=== PATIENT | female | born 1945 | race Two or more races ===

== ENCOUNTER → 2024-04-26 | Outpatient (CLI) | payer MEDICARE, OTHER, SELFPAY ==
[2024-04-26 11:26] LABS: Glucose Estimated Average 146 mg/dL (80-131); Hemoglobin A1C 6.7 % Hgb (4.8-6.0)
[2024-04-26 11:36] LABS: Cardiac Risk Estimate 5.2 RATIO (3.7-5.6); Cholesterol 161 mg/dL (132-200); Free T4 (Free Thyroxine) 1.28 ng/dL (0.89-1.76); HDL Cholesterol 31 mg/dL (40-60); LDL Cholesterol,Calculated 96 mg/dL (0-130); Triglycerides 169 mg/dL (30-150)
== END | disposition home or self-care (01) ==
LOC: COPL 10:16
PROVIDERS: PCP Family Medicine; Referring Provider Family Medicine; Visit Provider Family Medicine
DX: E05.90 Thyrotoxicosis, unspecified without thyrotoxic crisis or storm (principal); E11.69 Type 2 diabetes mellitus with other specified complication
CPT/HCPCS: 36415; 80061; 83036; 84439; 84443

== ENCOUNTER 2024-08-02 13:53 | Inpatient (IN) | payer MEDICARE, OTHER, SELFPAY ==
[2024-08-02] VITALS (38 sets, daily range): BP systolic 81–126; BP diastolic 41–75; PULSE 67–95; RESP 16–89; TEMP 36.6–37; O2SAT 81–100; BMI 20.6
--- NOTE | 2024-08-02 14:16 | EKG_ITS ---
[facility] Test Date: 2024-08-02 Pat Name: DIANNE HOU Department: Room: - Gender: Female Qm Nurse: : 1945 Requested By: Giovani Smith Order Number: [id number] Reading MD: Giovani Smith Measurements Intervals [place] Rate: 78 P: 50 ID: [id number] QRS: -26 QRSD: 105 T: 201 QT: 418 QTc: 479 Interpretive Statements SINUS RHYTHM WITH FIRST DEGREE AV BLOCK POSSIBLE ANTERIOR MYOCARDIAL INFARCTION , PROBABLY OLD [30 ms Q WAVE IN V3/V4, OR R < 0.2 mV IN V4] INFERIOR MYOCARDIAL INFARCTION , PROBABLY OLD [40+ ms Q WAVE AND/OR ST/T ABNORMALITY IN II/aVF] Compared to ECG 04/25/2022 16:15:28 First degree AV block now present Myocardial infarct finding still present /store/S0/[id number]
--- NOTE | 2024-08-02 14:17 | XR_ITS ---
Examination: AP lateral chest 2 views TECHNIQUE: Upright AP lateral chest 2 views INDICATIONS: Coughing fever beginning 3 days ago. FINDINGS: Extensive bilateral pneumonia Prominent hilar regions Normal heart size The osseous structures are intact and significantly demineralized IMPRESSION: Significant bilateral pneumonia
[2024-08-02 14:46] LABS: Basophils % (Auto) 0 % (0-2.5); Eosinophils % (Auto) 0 % (0-10); Hematocrit 31.2 % (36.0-46.0); Hemoglobin 10.6 g/dL (12.0-16.0); Immature Granulocytes % (Auto) 1 % (0-0); Immature Granulocytes Auto 0.07 Thou/mm3 (0.00-0.00); Lymphocytes # (Auto) 0.2 Thou/mm3 (1.0-4.8); Lymphocytes % (Auto) 3 % (10-50); Mean Corpuscular Hemoglobin 31.6 pg (25.0-35.0); Mean Corpuscular Volume 93 fL (80-100); Monocytes # (Auto) 0.8 Thou/mm3 (0.0-0.8); Monocytes % (Auto) 9 % (0-12); Neutrophils # (Auto) 7.9 Thou/mm3 (1.8-7.7); Neutrophils % (Auto) 88 % (37-80); Nucleated Red Blood Cell % 0 /100 WBC (0); Platelet Count 210 Thou/mm3 (140-440); RDW Standard Deviation 50.6 fL (36.4-46.3); Red Blood Count 3.35 Miln/mm3 (4.00-5.20)
[2024-08-02 15:06] LABS: Alanine Aminotransferase 16 U/L (10-49); Albumin, Serum 4.2 gm/dL (3.4-4.8); Albumin/Globulin Ratio 1.3 (1.2-2.2); Alkaline Phosphatase 96 U/L (46-116); Anion Gap 13 (7-16); Aspartate Amino Transferase 26 U/L (0-34); B-Type Natriuretic Peptide > 3280 pg/mL (0-100); BUN/Creatinine Ratio 23 Ratio (12-20); Bilirubin,Total 0.4 mg/dL (0.3-1.2); Blood Urea Nitrogen 49 mg/dL (9-23); Calcium 9.2 mg/dL (8.3-10.6); Calcium (Corrected) 9.2 mg/dL (8.5-10.1); Carbon Dioxide 18.1 mMol/L (20.0-31.0); Chloride 106 mMol/L (98-107); Creatinine (Component) 2.1 mg/dL (0.6-1.3); Globulin 3.2 gm/dL (2.3-3.5); Glucose 254 mg/dL (74-106); Osmolality,Calculated 295 (275-295); Potassium 3.8 mMol/L (3.4-5.1); Sodium 137 mMol/L (136-145); Total Protein 7.4 gm/dL (5.7-8.2); eGFR 23 See Note
--- NOTE | 2024-08-02 15:16 | PD.EDWEAK ---
ED Weakness RME/HPI General Chief complaint: Recheck/Abnormal Lab/Rx Stated complaint: NOT ACTING RIGHT , LETHARGIC W/HIGH GLUCOSE Time Seen by Provider: 08/02/24 13:59 Source: patient Arrival date/time: 08/02/24 13:53 79-year-old female with a history of type 2 diabetes presents to the emergency room with daughter who brought her in and states that her mother has been weak and Mode of arrival: ambulatory Limitations: no limitations Related Data Home Medications ?Medication ?Instructions ?Recorded ?Confirmed metoprolol tartrate 50 mg tablet 25 mg PO HS #0 tabs 11/09/15 04/27/22 aspirin 325 mg tablet 81 mg PO DAILY 04/02/20 04/27/22 sacubitril 24 mg-valsartan 26 mg 1 tab PO BID 04/02/20 04/27/22 tablet (Entresto) dapagliflozin propanediol 10 mg 10 mg PO QDAY 04/27/22 04/27/22 tablet (Farxiga) sertraline 50 mg tablet 50 mg PO QDAY 04/27/22 04/27/22 Allergies Allergy/AdvReac Type Severity Reaction Status Date / Time Penicillins Allergy Verified 04/02/20 00:14 ED Exam General Limitations: Present no limitations Course Orders Category Date Time Status Bedside COVID-19 Antigen Test NOW Care 08/02/24 14:17 Active Bedside Influenza A&B Antigen Test NOW Care 08/02/24 14:17 Completed EKG (ED ONLY) *Do not use* NOW Care 08/02/24 14:17 Completed EKG (ED Only) Stat Exams 08/02/24 14:16 Draft XR chest 2V Stat Exams 08/02/24 14:17 Taken BNP [B-Type Natriuretic Peptide] Stat Lab 08/02/24 14:34 Received CBC [CBC] Stat Lab 08/02/24 14:34 Completed CMP [Comprehensive Metabolic Panel] Stat Lab 08/02/24 14:34 Received Troponin I Stat Lab 08/02/24 14:34 Received UA, C/S IF [Urinalysis, C/S if Indicated] Stat Lab 08/02/24 14:17 Ordered Vital Signs Vital signs: Vital Signs Temperature 98.6 F 08/02/24 14:11 Pulse Rate 78 08/02/24 14:11 Respiratory Rate 16 08/02/24 14:11 Blood Pressure 93/58 L 03/05/25 14:11 Pulse Oximetry (%) 93 L 08/02/24 14:11 Oxygen Delivery Method Room Air 08/02/24 14:11 Discharge Plan Prescriptions/Referrals Prescriptions/Med Rec: No Action metoprolol tartrate 50 MG tablet 25 mg PO HS Qty: 0 Entresto 24-26 mg Tablet 1 tab PO BID aspirin 325 MG tablet 81 mg PO DAILY sertraline 50 mg tablet 50 mg PO QDAY Patient Comments: take 1 tablet by mouth once daily Farxiga 10 mg tablet 10 mg PO QDAY Patient Comments: take 1 tablet by mouth every morning Patient/Caregiver Discharge Instructions Print Language: Macedonian
[2024-08-02 15:34] LABS: Troponin I 0.165 ng/mL (0.0-0.045)
--- NOTE | 2024-08-02 15:41 | PD.EDRME ---
Rapid Medical Screening Exam RME Arrival date/time: 08/02/24 13:53 79-year-old female with a history of type 2 diabetes presents to the emergency room with daughter who brought her in and states that her mother has been weak and fatigued x 1 week. I have greeted and performed a focused initial assessment of this patient. A comprehensive ED assessment and evaluation of the patient, analysis of all test results, and completion of the medical decision making process will be conducted by additional ED providers. Chief Complaint: Recheck/Abnormal Lab/Rx Time Seen by Provider: 08/02/24 13:59 Vital signs: Vital Signs Temperature 98.6 F 08/02/24 14:11 Pulse Rate 78 08/02/24 14:11 Respiratory Rate 16 08/02/24 14:11 Blood Pressure 93/58 L 08/02/24 14:11 Pulse Oximetry (%) 93 L 08/02/24 14:11 Oxygen Delivery Method Room Air 08/02/24 14:11 Vital signs reviewed by provider: Yes
--- NOTE | 2024-08-02 16:30 | PD.EDWEAK ---
ED Weakness RME/HPI General Chief complaint: Recheck/Abnormal Lab/Rx Stated complaint: NOT ACTING RIGHT , LETHARGIC W/HIGH GLUCOSE Time Seen by Provider: 08/02/24 13:59 Source: patient and family Arrival date/time: 08/02/24 13:53 79-year-old female past medical history of CHF presents to the emergency department complaining of generalized weakness and difficulty breathing for 2 days. Patient's daughter also endorses blood sugars in the 200s. Patient's daughter reports mother is on diuretics for CHF and is managed by Dr. Mitchel Vasquez. Patient denies any fevers. Limitations: no limitations RME / HPI RME / HPI Narrative: 08/02/24 13:53 79-year-old female with a history of type 2 diabetes presents to the emergency room with daughter who brought her in and states that her mother has been weak and fatigued x 1 week. I have greeted and performed a focused initial assessment of this patient. A comprehensive ED assessment and evaluation of the patient, analysis of all test results, and completion of the medical decision making process will be conducted by additional ED providers. Related Data Home Medications ?Medication ?Instructions ?Recorded ?Confirmed metoprolol tartrate 50 mg tablet 25 mg PO HS #0 tabs 11/09/15 04/27/22 aspirin 325 mg tablet 81 mg PO DAILY 04/02/20 04/27/22 sacubitril 24 mg-valsartan 26 mg 1 tab PO BID 04/02/20 04/27/22 tablet (Entresto) dapagliflozin propanediol 10 mg 10 mg PO QDAY 04/27/22 04/27/22 tablet (Farxiga) sertraline 50 mg tablet 50 mg PO QDAY 04/27/22 04/27/22 Allergies Allergy/AdvReac Type Severity Reaction Status Date / Time Penicillins Allergy Verified 04/02/20 00:14 Review of Systems Review of Systems Systems Reviewed: All systems reviewed, normal except as documented Constitutional Constitutional: Reports system reviewed and no additional complaints, except as documented, Denies body ache(s), Denies chills and Denies fever(s) Eyes Eyes: Reports system reviewed and no additional complaints, except as documented and Denies change in vision ENT Ears, Nose, Mouth, and Throat: Reports system reviewed and no additional complaints, except as documented, Denies disequilibrium, Denies dizziness, Denies sore throat and Denies vertigo Cardiovascular Cardiovascular: Reports system reviewed and no additional complaints, except as documented, Denies chest pain and Reports dyspnea Respiratory Respiratory: Reports system reviewed and no additional complaints, except as documented, Denies chest congestion, Reports cough and Reports dyspnea Gastrointestinal Gastrointestinal: Reports system reviewed and no additional complaints, except as documented, Denies abdominal pain, Denies nausea and Denies vomiting Musculoskeletal Musculoskeletal: Reports system reviewed and no additional complaints, except as documented, Denies abnormal gait and Denies arthralgias Integumentary/Breasts Skin/Breast: Reports system reviewed and no additional complaints, except as documented, Denies erythema, Denies rash and Denies wounds Neurologic Neurologic: Reports system reviewed and no additional complaints, except as documented, Denies abnormal gait, Denies disequilibrium, Denies dizziness and Denies vertigo Past Medical History Past Medical History NEUROLOGIC: Positive Neurological Disorders (DAUGHTER UNABLE TO RECALL IF ALZHEMIERS OR DEMENTIA) CARDIAC: Positive Cardiac Disorders (LEAKY VALVE) and Congestive Heart Failure; Negative Hypertension RESPIRATORY: Positive Pneumonia; Negative Chronic Obstructive Pulmonary Disease (COPD) GENITOURINARY: Negative Renal Disease ENT: Positive Cataracts ENDOCRINE: Positive Diabetes Mellitus Type 2 and Hyperthyroidism; Negative Diabetes Mellitus Type 1 PSYCHO/SOCIAL: Positive Anxiety Social History SMOKING STATUS: Never smoker SUBSTANCE USE: does not use ED Exam General Limitations: Present no limitations General appearance: Present alert and in no apparent distress Head Head exam: Present atraumatic Eye Eye exam: Present normal appearance, PERRL and EOMI ENT ENT exam: Present normal exam, normal oropharynx and mucous membranes moist Neck Neck exam: Present normal inspection, full ROM and trachea midline Chest Chest inspection: Present normal inspection and symmetric chest wall rise Respiratory Respiratory exam: Present normal lung sounds bilaterally Expanded Respiratory Exam Location: Left: decreased breath sounds, Right: decreased breath sounds and Lower: decreased breath sounds Cardiovascular Cardiovascular exam: Present regular rate, normal rhythm and normal heart sounds Abdominal Exam Abdominal exam: Present soft and normal bowel sounds Extremities Exam Extremities exam: Present normal inspection and full ROM Back Exam Back exam: Present normal inspection and full ROM Neurological Exam Neurological exam: Present alert, oriented X3 and CN II-XII intact Psychiatric Psychiatric exam: Present normal affect and normal mood Skin Skin exam: Present warm, dry, intact and normal color Course Quality Measures none Orders Category Date Time Status Patient Condition Routine Admission 08/02/24 17:[address] in Observation Status Routine Admission 08/02/24 17:39 Active Bedside COVID-19 Antigen Test NOW Care 08/02/24 14:17 Active Bedside Influenza A&B Antigen Test NOW Care 08/02/24 14:17 Completed Bladder Scan NEEDED Care 08/02/24 17:54 Active COVID-19 Screening Questionnaire NOW Care 08/02/24 16:44 Active Vp Strategy Q4H START 00 Care 08/02/24 16:28 Completed Decision to Admit X1 Care 08/02/24 16:44 Completed EKG (ED ONLY) *Do not use* NOW Care 08/02/24 14:17 Completed Flu & Pneumonia Vaccine Screen ONCE Care 08/02/24 17:40 Active Miscellaneous Nursing Order NOW Care 08/02/24 17:45 Active Notify provider NEEDED Care 08/02/24 17:40 Active Obtain weight daily Care 08/02/24 17:40 Active EKG (ED Only) Stat Exams 08/02/24 14:16 Draft XR chest 2V Stat Exams 08/02/24 14:17 Completed BNP [B-Type Natriuretic Peptide] Stat Lab 08/02/24 14:34 Completed Blood Culture (Lab) Stat Lab 08/02/24 16:46 Received CBC AM DRAW Lab 08/03/24 05:00 Ordered CBC AM DRAW Lab 08/04/24 05:00 Ordered CBC AM DRAW Lab 08/05/24 05:00 Ordered CBC AM DRAW Lab 08/06/24 05:00 Ordered CBC AM DRAW Lab 08/07/24 05:00 Ordered CBC [CBC] Stat Lab 08/02/24 14:34 Completed CMP [Comprehensive Metabolic Panel] Stat Lab 08/02/24 14:34 Completed Comprehensive Metabolic Panel AM DRAW Lab 08/03/24 05:00 Ordered Comprehensive Metabolic Panel AM DRAW Lab 08/04/24 05:00 Ordered Comprehensive Metabolic Panel AM DRAW Lab 08/05/24 05:00 Ordered Comprehensive Metabolic Panel AM DRAW Lab 08/06/24 05:00 Ordered Comprehensive Metabolic Panel AM DRAW Lab 08/07/24 05:00 Ordered Lactate (Lactic Acid) Stat Lab 08/02/24 17:10 Results Lipid Panel AM DRAW Lab 08/03/24 05:00 Ordered Magnesium AM DRAW Lab 08/03/24 05:00 Ordered Magnesium AM DRAW Lab 08/04/24 05:00 Ordered Magnesium AM DRAW Lab 08/05/24 05:00 Ordered Magnesium AM DRAW Lab 08/06/24 05:00 Ordered Magnesium AM DRAW Lab 08/07/24 05:00 Ordered Procalcitonin Stat Lab 08/02/24 17:10 Received Thyroid Stimulating Hormone AM DRAW Lab 08/03/24 05:00 Ordered Troponin I Stat Lab 08/02/24 14:34 Completed UA, C/S IF [Urinalysis, C/S if Indicated] Stat Lab 08/02/24 14:17 Ordered Urine Culture Routine Lab 08/02/24 17:40 Ordered Acetaminophen Tab [Tylenol Tab] Med 08/02/24 17:40 Active 650 mg PO Q6H PRN Acetaminophen Tab [Tylenol Tab] Med 08/02/24 17:40 Active 650 mg PO Q6H PRN Azithromycin Inj [Zithromax Inj] 500 mg Med 08/02/24 17:44 Pending Sodium Chloride 0.9% 250 ml [Ns] 250 ml IV QDAY Azithromycin Inj [Zithromax Inj] 500 mg Med 08/02/24 18:00 Active Sodium Chloride 0.9% 250 ml [Ns] 250 ml IV X1 Docusate Sod [Colace] Med 08/03/24 09:00 Active 100 mg PO QDAY Heparin Inj Med 08/02/24 22:00 Active 5,000 unit SC Q8HR Levalbuterol Rt [Xopenex Rt Nadine] Med 08/02/24 17:45 Active 1.25 mg INH Q8HR Levalbuterol Rt [Xopenex Rt Nadine] Med 08/02/24 17:43 Discontinued 1.25 mg INH Q8HR PRN Ondansetron Inj [Zofran Inj] Med 08/02/24 17:40 Active 4 mg IV Q6H PRN Oseltamivir [Tamiflu] Med 08/02/24 21:00 Active 75 mg PO BID Sodium Chloride 0.9% 1000 ml [Ns] 1,000 ml Med 08/02/24 17:42 Active IV 75 mls/hr Sodium Chloride Rt Nadine 0.9% [NS Rt Nadine 0.9%] Med 08/02/24 17:43 Active 3 ml INH PRN PRN cefTRIAXone [Rocephin] 1,000 mg Med 08/02/24 16:33 Discontinued SODIUM CHLORIDE 0.9% (Popper) [Ns 0.9% (P)] 50 ml IV X1 Code Status Routine Oth 08/02/24 17:40 Ordered Oxygen Delivery NOW RT 08/02/24 17:06 Active Vital Signs Vital signs: Vital Signs Temperature 98.6 F 08/02/24 14:11 Pulse Rate 78 08/02/24 14:11 Respiratory Rate 16 08/02/24 14:11 Blood Pressure 93/58 L 08/02/24 14:11 Pulse Oximetry (%) 93 L 08/02/24 14:11 Oxygen Delivery Method Room Air 08/02/24 14:11 93% room air Procedures -ED EKG Interpretation #1: Date of EK08/02/24 Time of EK:24 Rate: 78 Interpretation: Interpreted by me EKG Impression: Normal sinus rhythm (With first-degree AV block) and No acute ST-T changes Weakness MDM Narrative MDM Narrative:: 79-year-old female past medical history of CHF presents to the emergency department complaining of generalized weakness and difficulty breathing for 2 days. Patient's daughter also endorses blood sugars in the 200s. Patient's daughter reports mother is on diuretics for CHF and is managed by Dr. Mitchel Vasquez. Patient denies any fevers. Diminished lung sounds bilateral lower lobe. Patient is tachypneic with normal O2 saturation 96%. +1 pitting edema to bilateral ankles. CBC no leukocytosis with hemoglobin of 10.6. CMP is remarkable for acute kidney injury previous creatinine 1.3 now 2.1. BNP greater than 3280 and elevated troponin of 0.165. Patient denies any chest pain but does report shortness of breath. Chest x-ray impression as written by radiologist significant bilateral pneumonia. Influenza A positive. Patient symptom onset within 48 hours may benefit from Tamiflu but patient's creatinine is elevated. Decision to admit consulted hospitalist. Hospitalist Rohit Bronson agrees to admit patient. Patient stable at time of admission. Patient data External records reviewed:: [facility] previous records Clinical information provided by:: patient and family Social determinants that could affect healthcare access:: none Patient has the following chronic illnesses:: See chart How is presenting disease/condition affected by chronic disease/condition?: exacerbated by Evaluation data The following diagnostics were reviewed and interpreted by me:: lab results and radiology exam(s) Lab and/or radiology exams considered but not ordered:: Ordered Interpretation Summary: Interpreted by me Medications / Prescriptions Medications or Prescriptions considered but not ordered:: Ordered Medication administrations:: Medication Administration History Acetaminophen (Acetaminophen 325 Mg Tablet) 650 mg PO Q6H PRN PRN Reason: Fever >100.5 Stop: 09/01/24 17:39 Acetaminophen (Acetaminophen 325 Mg Tablet) 650 mg PO Q6H PRN PRN Reason: PAIN SCALE 1-3 (mild Stop: 09/01/24 17:39 Docusate Sodium (Docusate Sod 100 Mg Capsule) 100 mg PO QDAY JUAN LUIS; Protocol Stop: 09/02/24 08:59 Heparin Sodium (Porcine) (Heparin Sod Inj 5000 Unit/Ml Vial) 5,000 unit SC Q8HR JUAN LUIS Stop: 08/16/24 21:59 Sodium Chloride (Ns) 1,000 mls @ 75 mls/hr IV .[id number] [facility] Stop: 09/01/24 17:41 Azithromycin 500 mg/ Sodium (Chloride) 250 mls @ 250 mls/hr IV QDAY JUAN LUIS Stop: 08/09/24 17:43 Azithromycin 500 mg/ Sodium (Chloride) 250 mls @ 250 mls/hr IV X1 ONE Stop: 08/02/24 18:59 Levalbuterol HCl (Levalbuterol Rt 1.25 Mg/0.5 Ml Nebu) 1.25 mg INH Q8HR JUAN LUIS Stop: 09/01/24 17:44 Ondansetron HCl (Ondansetron Inj 2 Mg/Ml Inj 2 Ml) 4 mg IV Q6H PRN; Protocol PRN Reason: NAUSEA OR VOMITING Stop: 09/01/24 17:39 Oseltamivir Phosphate (Oseltamivir 75 Mg Capsule) 75 mg PO BID [facility] Stop: 08/09/24 20:59 Sodium Chloride (Sodium Chloride Rt Nadine 0.9% 3 Ml Nebu) 3 ml INH PRN PRN PRN Reason: SOLN Stop: 09/01/24 17:42 Discontinued Medications Ceftriaxone Sodium 1,000 mg/ (Sodium Chloride) 50 mls @ 100 mls/hr IV X1 ONE Stop: 08/02/24 17:02 Last Infusion: 08/02/24 17:50 Dose: Infused Documented By: Admin: 08/02/24 17:13 Dose: 100 mls/hr Documented By: BD Levalbuterol HCl (Levalbuterol Rt 1.25 Mg/0.5 Ml Nebu) 1.25 mg INH Q8HR PRN PRN Reason: WHEEZING Stop: 09/01/24 17:42 Given Consultations Consultation(s) initiated? (list below): Yes Consultation #1 (Physician, Specialty, Details): Hospitalist Dr. Audie Bee Diagnosis Weakness Differential Diagnosis: acute myocardial infarction, anemia, hypoglycemia, hypothyroidism, rhabdomyolysis, sepsis and dehydration Most likely diagnosis given after review of the tests above:: Influenza Admission Indicated Admission indicated?: indicated Admission Request Was there a request for admission?: Yes Admission Attestation Admission request attestation: Discussed case with [Dr. Rohit Bronson] from Hospitalist service regarding admission. Discussed patients ED course, exam findings, labs, and radiology results. The Hospitalist [agrees] to accept the patient for admission. Disposition Plan Disposition Plan: Admit Discharge Plan Plan Patient Disposition: Admit Acute Care w/in Hospital Disposition Comment: Stable Problem List Clinical Impression: Influenza PA/SENIOR [employer] ADMINISTRATOR Supervising Physician PA/SENIOR [employer] UN[employer] ADMINISTRATOR Supervising Physician: Dr. Guerra
--- NOTE | 2024-08-02 16:46 | PC.NURSE ---
PT CAME FROM LOBBY WITH DAUGHTER AT BEDSIDE PER DAUGHTER SHE SEEMS WEAK NOT HER USUAL SELF.
[2024-08-02] MEDS: cefTRIAXone 1,000 MG in SODIUM CHLORIDE 0.9% (Popper) 50 ML 100 MG IV (17:13)
[2024-08-02 17:29] LABS: Lactate (Lactic Acid) 2.8 mMol/L (0.4-2.0)
--- NOTE | 2024-08-02 17:46 | ESHP_ITS ---
<Statement entered by Jada Oliver MD - 08/02/24 18:11> I discussed with and supervised the internal communications manager physician who took care of this patient. I personally saw and examined the patient and discussed the assessment and plan with the entire medicine team, including my attending Dr. Greenfield, I agree with the assessment and plan as documented below Patient seen and examined at bedside today. Labs and imaging reviewed. 79-year-old woman with past medical history of CHF, hyperthyroidism, diabetes mellitus type 2, hypertension, history of cigarette smoking, who came to the ED with chief complaint of generalized weakness and shortness of breath. Per patient daughter at the bedside she was presenting shortness of breath, weakness and fatigue for 1 week. On admission patient was hypotensive and hypoxic BP 93/58, O2 sats 93% on room air. Labs were significant fo WBCs within normal limits 9.0, hemoglobin 10.6, bicarb 18.1, creatinine 2.1 EGFR 23, BUN 49, lactic acid 2.8, BNP was elevated > 3280, influenza A was positive chest x-ray showed bilateral pneumonia. At the ED patient received azithromycin, Rocephin. Patient will be admitted for further treatment and management of acute hypoxic respiratory failure secondary to influenza and STEPHEN. Jada Oliver MD PGY-3 Disclaimer: Despite multiple revisions, due to the dictation software being used, the document bellow may not be free of grammatical errors including phonetic/typographic errors. However, this does not deter from our commitment to providing health care in the patient's best interest in mind. Documentation for date of: 08/02/24 HPI History of Present Illness Chief complaint: Flu History of present illness: 79-year-old smoker female with past medical history of hypertension, hyperthyroidism, CHF was brought to the ED by daughter due to generalized weakness. Per daughter patient has been having difficulty breathing, decreased p.o. intake and weakness. When speaking to the patient patient states that she is okay and is not short of breath. However she also does endorse that she sees sleeps reclined and is unable to lay flat. Daughter also states that patient was given home oxygen a few years ago however she does not use it. Denies fever, shortness of breath, chest pain, nausea, vomiting. Admitted for influenza A pneumonia and acute kidney injury. ED course: Vitals on arrival blood pressure 93/58, heart rate 78, saturating 93% on room air, labs significant for hemoglobin 10.6, chemistry significant for bicarb 18.1, BUN 49, creatinine 2.1, glucose 254, lactic acid 2.8, troponin 0.165, BNP more than 3280. EKG shows sinus rhythm with first-degree AV block, chest x-ray shows significant bilateral pneumonia. Influenza A found positive in the ED patient received ceftriaxone PMHx: As above SxHx: None Social Hx: 32 pack years, denies alcohol use, denies any illicit substances including FHx: Unknown Review of Systems Review of Systems Systems Reviewed: All systems reviewed, normal except as documented Exam Vital Signs Temp Pulse Resp BP Pulse Ox O2 Del Method O2 Flow Rate 98 F 83 27 H 102/57 L 95 Room Air 3 08/02/24 16:18 08/02/24 17:06 08/02/24 17:06 08/02/24 16:18 08/02/24 17:06 08/02/24 16:18 08/02/24 17:06 Narrative Exam Physical Exam GENERAL: NAD, AAOx2 HEENT: Dry mucosa. Eyes open, symmetrical, & clear, mild icterus CARDIO: Heart RRR, right upper sternal border murmur PULM: No noted coughing/dyspnea, bilateral wheezing GI: Abdomen soft, nondistended, mild pain on palpation. BSx4 SKIN/MSK/EXT: No wounds/rashes/edema/amputations, no pain on palpation. Pedal pulses present B/L NEURO: AAOx2, no focal neuro deficits, able to move all 4 extremities Results: Labs 08/03/24 04:35 08/03/24 04:35 Labs: Short CBC 08/02/24 Range/Units 14:34 WBC 9.0 (3.6-11.0) Thou/mm3 Hgb 10.6 L (12.0-16.0) g/dL Hct 31.2 L (36.0-46.0) % Plt Count 210 (140-440) Thou/mm3 BMP 08/02/24 14:34 Sodium 137 Potassium 3.8 Chloride 106 Carbon Dioxide 18.1 L BUN 49 H Creatinine 2.1 H Glucose 254 H Calcium 9.2 Cardiac Enzymes 08/02/24 Range/Units 14:34 Troponin I 0.165 H* (0.0-0.045) ng/mL Liver Function 08/02/24 Range/Units 14:34 Total Bilirubin 0.4 (0.3-1.2) mg/dL AST 26 (0-34) U/L ALT 16 (10-49) U/L Alkaline Phosphatase 96 (46-116) U/L Albumin 4.2 (3.4-4.8) gm/dL Quality Measures Quality Measures none Advance care planning discussed with:: patient Medications Home Medications and Allergies Home Medications ?Medication ?Instructions ?Recorded ?Confirmed ?Type metoprolol tartrate 50 mg tablet 25 mg PO HS #0 tabs 0 11/09/15 04/27/22 History aspirin 325 mg tablet 81 mg PO DAILY 04/02/2004/01 History sacubitril 24 mg-valsartan 26 mg 1 tab PO BID 04/02/20 04/27/22 History tablet (Entresto) dapagliflozin propanediol 10 mg 10 mg PO QDAY 04/27/22 04/27/22 History tablet (Farxiga) sertraline 50 mg tablet 50 mg PO QDAY 04/27/2204/27 History Allergies Allergy/AdvReac Type Severity Reaction Status Date / Time Penicillins Allergy Verified 04/02/20 00:14 Visit Medications Acetaminophen (Acetaminophen 325 Mg Tablet) 650 mg PO Q6H PRN PRN Reason: Fever >100.5 Stop: 09/01/24 17:39 Acetaminophen (Acetaminophen 325 Mg Tablet) 650 mg PO Q6H PRN PRN Reason: PAIN SCALE 1-3 (mild Stop: 09/01/24 17:39 Docusate Sodium (Docusate Sod 100 Mg Capsule) 100 mg PO QDAY [facility]; Protocol Stop: 09/02/24 08:59 Heparin Sodium (Porcine) (Heparin Sod Inj 5000 Unit/Ml Vial) 5,000 unit SC Q8HR [facility] Stop: 08/16/24 21:59 Sodium Chloride (Ns) 1,000 mls @ 75 mls/hr IV .[id number] [facility] Stop: 09/01/24 17:41 Azithromycin 500 mg/ Sodium (Chloride) 250 mls @ 250 mls/hr IV QDAY [facility] Stop: 08/09/24 17:43 Levalbuterol HCl (Levalbuterol Rt 1.25 Mg/0.5 Ml Nebu) 1.25 mg INH Q8HR [facility] Stop: 09/01/24 17:44 Ondansetron HCl (Ondansetron Inj 2 Mg/Ml Inj 2 Ml) 4 mg IV Q6H PRN; Protocol PRN Reason: NAUSEA OR VOMITING Stop: 09/01/24 17:39 Oseltamivir Phosphate (Oseltamivir 75 Mg Capsule) 75 mg PO BID [facility] Stop: 08/09/24 20:59 Sodium Chloride (Sodium Chloride Rt Nadine 0.9% 3 Ml Nebu) 3 ml INH PRN PRN PRN Reason: SOLN Stop: 09/01/24 17:42 Discontinued Medications Ceftriaxone Sodium 1,000 mg/ (Sodium Chloride) 50 mls @ 100 mls/hr IV X1 ONE Stop: 08/02/24 17:02 Last Admin: 08/02/24 17:13 Dose: 100 mls/hr Levalbuterol HCl (Levalbuterol Rt 1.25 Mg/0.5 Ml Nebu) 1.25 mg INH Q8HR PRN PRN Reason: WHEEZING Stop: 09/01/24 17:42 Assessment & Plan Plan 79-year-old smoker female with past medical history of hypertension, hyperthyroidism, CHF was brought to the ED by daughter due to generalized weakness. Per daughter patient has been having difficulty breathing, decreased p.o. intake and weakness. When speaking to the patient patient states that she is okay and is not short of breath. However she also does endorse that she sees sleeps reclined and is unable to lay flat. Daughter also states that patient was given home oxygen a few years ago however she does not use it. Denies fever, shortness of breath, chest pain, nausea, vomiting. Admitted for influenza A pneumonia and acute kidney injury. #Acute hypoxic respiratory failure secondary to #Influenza A pneumonia Patient presenting with generalized weakness, decreased p.o. intake, lethargy On examination found with some mild bilateral wheezing Patient had flu test done in the ED found positive Chest x-ray shows bilateral pneumonia Lactic acid 2.8 ? On Tamiflu ? On levalbuterol ? Azithromycin ? Pro-Juan M ordered ? Follow-up lactic acid ? Methylprednisolone 80 mg x 1 given #Acute kidney injury Likely prerenal azotemia secondary to dehydration Patient has been having decreased p.o. intake for the past few days Baseline creatinine 1.2, current creatinine 2.1 Clinically patient looks dry ? Gentle IV hydration 75 cc/h ? Avoid nephrotoxins ? Renally dose medications #History of hyperthyroidism Per daughter patient takes methimazole is unsure of dosing ? Pending med rec #History of congestive heart failure #History of peripheral artery disease Patient is seen by Dr. Vasquez Per daughter patient had echocardiogram around 2 months ago No echo on file Patient does not have any crackles or extremity edema, however patient does require to sleep reclined and is unable to lay flat at home BNP on admission found to be elevated however patient does take Entresto which can affect BNP reading On chart review patient has diagnosis of peripheral artery disease ? Aspirin 81 mg daily ? Strict I's and O's ? Daily weights ?Will follow-up with Dr. Vasquez in regards to patient's ejection fraction #Elevated troponins Likely secondary to dehydration and influenza A infection Patient does not have any chest pain at this time ? Monitor for now #Hypertension Patient at this time has soft blood pressure will hold on resuming any antihypertensives at this time ? Continue to monitor blood pressure #Type 2 diabetes mellitus Per chart review at 1 point diabetic medications were held due to hypoglycemia ? A1c ordered ? SSI ? Hypoglycemia protocol in place Case discussed with my senior Dr. Oliver PGY-[address] Jean Pierre Bronson MD PGY-1 Disposition: Med telemetry Fluids: NS 75 cc/h Feeding: Cardiac diet Thrombo prophylaxis: Heparin Gastric Ulcer prophylaxis: None CODE STATUS: DNR Disclaimer: Despite multiple revisions, due to the dictation software being used, the document bellow may not be free of grammatical errors including phonetic/typographic errors. However, this does not deter from our commitment to providing health care in the patient's best interest in mind. Attending Provider Attestation/Addendum I, Qian Greenfield DO, attest that I was physically present for the maya portions of the service and evaluated the patient with the resident and I reviewed and discussed the case with the resident and agree with the resident's findings and plans of care as documented above Patient is an 79-year-old female with past medical history of hypertension, hypothyroidism, cardiomyopathy and reduced ejection fraction who was brought to the ED due to worsening generalized weakness since Wednesday. Daughter is at bedside and states that the patient has appeared to be more lethargic and somnolent in the past few days. She also appears to have more labored breathing. She otherwise denies any diarrhea, chest pain, productive cough, fevers, chills or dysuria. Per daughter, patient has been sleeping more and had decreased p.o. intake. She is also noted to sound congested, but denies any sputum. Patient uses home O2 as needed if she continues to smoke about half a pack to 1 pack a day. Patient is noted to have tested positive for influenza A. Daughter denies any recent sick contacts, but patient's was recently discharged from the hospital on Wednesday. She is also noted to have acute kidney injury with creatinine of 1.8. Suspect that STEPHEN could be secondary to decreased p.o. intake. Patient is currently on 2 L nasal cannula saturating in the s. Oral mucosa is dry and patient complaining of feeling thirsty with swab in her mouth. Patient noted to have some scattered rhonchi on lung exam. Patient denies any shortness of breath, although she appears to have some labored breathing. BNP is noted to be elevated. 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 Will reach out to cardiology regarding recent ejection fraction. She is noted to have bilateral lower extremity 2+ pitting edema as well. Patient appears to be intravascularly depleted and dry. Will give gentle IV fluids and Tamiflu, renally dosed. Will admit to med/telemetry for further workup and medical management of influenza and acute kidney injury.
[2024-08-02 18:02] LABS: Collection Type, Urine Clean Catch
[2024-08-02 18:12] LABS: Procalcitonin 0.57 ng/ml (0.0-0.49)
[2024-08-02] MEDS: AZITHROMYCIN INJ 500 MG in SODIUM CHLORIDE 0.9% 250 ML 250 ML 250 MG IV (18:24)
[2024-08-02] MEDS: SODIUM CHLORIDE 0.9% 1000 ML 1,000 ML 75 ML IV (18:26)
[2024-08-02] MEDS: LEVALBUTEROL RT 1.25 MG/0.5 ML NEBU INH ×2 (18:39→22:31)
[2024-08-02 19:15] LABS: Bilirubin,Urine Negative (Negative); Blood,Urine 1+ (Negative); Color,Urine Yellow (Lt Yel-Yel); Culture Indicated,Urine Contaminated; Glucose, Urine 4+ (Negative); Ketones,Urine Negative (Negative); Leukocyte Esterase,Urine Positive (Negative); Nitrite,Urine Negative (Negative); Protein,Urine 1+ (Neg - Trace); RBC,Urine 13 /hpf (0-3); Specific Gravity,Urine 1.015 (1.001-1.035); Squamous Epithelial Cell,Urine 12 /hpf (0-5); Urobilinogen,Urine Negative mg/dL (0.0-1.0); WBC,Urine 433 /hpf (0-5)
[2024-08-02 19:16] LABS: Clarity,Urine Turbid (Clear/Hazy)
[2024-08-02 19:31] LABS: Base Excess -9 (-3-3); HCO3 18 mEq/L (20-26); Inspired Oxygen, FIO2 32 %; O2 Saturation 34 % (91-98); PCO2 40 mmHg (32.0-48.0); pH, Arterial 7.25 (7.35-7.45)
--- NOTE | 2024-08-02 20:12 | PC.NURSE ---
CALLED NOC HOSPITALIST AND INFORMED ABOUT PT CONDITION AND LOW BP.
[2024-08-02 20:13] LABS: Allen Test Performed/OK; Puncture Site Right Radial
[2024-08-02 20:15] LABS: Lactate (Lactic Acid) 3.4 mMol/L (0.4-2.0)
[2024-08-02 20:15] LABS: PO2 26 mmHg (83-108)
[2024-08-02 20:24] LABS: Reflex Lactate? Y
--- NOTE | 2024-08-02 21:06 | PD.RESEVENT ---
Documentation for date of: 08/02/24 Event Note Event Note: While in the ED, Nahomi was evaluated again for further hypotension, MAP around 59, BP 86s/47. She was evaluated was noted to having bilat wheezing and crackles, and bilat pitting edema +2. Decision was made to stop IV fluids as pt is in acute exacerbation of HFrEF, will need to have pressure support and then will be diursed. Pt will be upgraded to ICU for further care. Patient seen and care discussed with my senior resident, Dr. Yusuf, and my attending physician, Dr. Rudy Pena, PGY-1
[2024-08-02 21:47] LABS: Troponin I 0.153 ng/mL (0.0-0.045)
[2024-08-02] MEDS: Norepinephrine/D5W 8mg/250ml 8 MG/250 ML BAG 4.805 MG IV ×2 (22:02)
[2024-08-02] MEDS: HEPARIN SOD INJ 5000 UNIT/ML VIAL SC (22:16)
--- NOTE | 2024-08-02 22:26 | ESCONSULT_ITS ---
<Statement entered by Osmel Grant MD - 08/03/24 05:31> 79-year-old female with multiple comorbidities including hypertension, hyperlipidemia, type 2 diabetes mellitus with subsequent heart failure with reduced EF who initially presented to the ER with shortness of breath found to have acute hypoxic respiratory failure concerning for CHF exacerbation in the setting of influenza A. During the night, patient was being diuresed with minimal urine output and noted to have MAP less than 60 concerning for shock with underlining etiology including distributive/septic versus cardiogenic shock. As a result, plan to initiate Levophed and start patient on Bumex 2 mg IV every 6 hours and plan to transfer the patient to ICU. I reviewed above note and agree with findings and plans. I have also personally examined the patient with medicine team and went over assessment and plan with medical team including newsroom intern and resident physician. HPI Data of Consult Requesting Physician: Qian Greenfield DO Admitting Provider: Qian Greenfield DO Attending Provider: Qian Greenfield DO Primary Care Provider: Court Tompkins MD Consult Narrative Reason for consult: Acute hypoxic respiratory failure with septic shock History of present illness: 79-year-old female patient with PMHx significant for HFrEF, hyperthyroidism, NIDDM II, HTN, Hx of smoking, admitted for AHRF in setting of Flu A. Patient was noted to have worsening SOB along with MAP<60, ICU team was consulted for further evaluation and care. Upon examining patient she was found to have bilateral crackles along with wheezing, on review of patient's chart she was noted to have EF of around 35% back in 2017, she states that she follows with Dr. Vasquez and had an Echocardiogram about 3 months ago. cc:: cc: Qian Greenfield DO Review of Systems Review of Systems Systems Reviewed: All systems reviewed, normal except as documented Past Medical History Past Medical History NEUROLOGIC: Positive Neurological Disorders (DAUGHTER UNABLE TO RECALL IF ALZHEMIERS OR DEMENTIA) CARDIAC: Positive Cardiac Disorders (LEAKY VALVE) and Congestive Heart Failure; Negative Hypertension RESPIRATORY: Positive Pneumonia; Negative Chronic Obstructive Pulmonary Disease (COPD) GENITOURINARY: Negative Renal Disease ENT: Positive Cataracts ENDOCRINE: Positive Diabetes Mellitus Type 2 and Hyperthyroidism; Negative Diabetes Mellitus Type 1 PSYCHO/SOCIAL: Positive Anxiety Social History SMOKING STATUS: Never smoker SUBSTANCE USE: does not use Exam Vital Signs Temp Pulse Resp BP Pulse Ox O2 Del Method O2 Flow Rate 98.2 F 89 28 H 111/54 L 98 Oxy Mask 6 08/02/24 22:22 08/02/24 22:22 08/02/24 22:22 08/02/24 22:22 08/02/24 22:22 08/02/24 22:22 08/02/24 22:22 Narrative Exam General: Underweight, laying in bed, in acute distress, speaking in short sentences but answering questions appropriately, making appropriate eye contact HEENT: Normocephalic, atraumatic, EOMI, PERRLA, moist oral mucosa, normal dentition, JVD noted. Cardiac: Regular rate and rhythm, normal S1/S2, no murmurs. Lungs: Clear to auscultation with no wheezings or crackles, increased respiratory effort and rate. Abdomen: Soft, nontender, nondistended, positive bowel sounds in all quadrants. No guarding or rebound tenderness. Neuro: CN II- XII intact, no focal motor deficit noted, BUE/BLE motor function and sensation intact and equal. Extremities: Normal to inspection, 1+ edema, no cyanosis Psych: Normal mood and affect. Results Labs 08/02/24 14:34 08/02/24 14:34 Labs: Short CBC 08/02/24 Range/Units 14:34 WBC 9.0 (3.6-11.0) Thou/mm3 Hgb 10.6 L (12.0-16.0) g/dL Hct 31.2 L (36.0-46.0) % Plt Count 210 (140-440) Thou/mm3 BMP 08/02/24 14:34 Sodium 137 Potassium 3.8 Chloride 106 Carbon Dioxide 18.1 L BUN 49 H Creatinine 2.1 H Glucose 254 H Calcium 9.2 Cardiac Enzymes 08/02/24 08/02/24 Range/Units 14:34 21:12 Troponin I 0.165 H* 0.153 H* (0.0-0.045) ng/mL Liver Function 08/02/24 Range/Units 14:34 Total Bilirubin 0.4 (0.3-1.2) mg/dL AST 26 (0-34) U/L ALT 16 (10-49) U/L Alkaline Phosphatase 96 (46-116) U/L Albumin 4.2 (3.4-4.8) gm/dL Urine 08/02/24 Range/Units 17:51 Urine Color Yellow (Lt Yel-Yel) Urine Clarity Turbid A (Clear/Hazy) Urine pH 7.0 (5.0-7.0) Ur Specific [place] 1.015 (1.001-1.035) Urine Protein 1+ A (Neg - Trace) Urine Glucose (UA) 4+ A (Negative) ABG Interpretation ABG results: 08/02/24 19:25 ABG pH 7.25 L ABG pCO2 40 ABG pO2 26 L* ABG HCO3 18 L ABG O2 Saturation 34 L ABG Base Excess -9 L Quality Measures Quality Measures none Advance care planning discussed with:: patient and child Medications Home Medications and Allergies Home Medications ?Medication ?Instructions ?Recorded ?Confirmed ?Type metoprolol tartrate 50 mg tablet 25 mg PO HS #0 tabs 0 11/09/15 04/27/22 History aspirin 325 mg tablet 81 mg PO DAILY 04/02/2004/01 History sacubitril 24 mg-valsartan 26 mg 1 tab PO BID 04/02/20 04/27/22 History tablet (Entresto) dapagliflozin propanediol 10 mg 10 mg PO QDAY 04/27/22 04/27/22 History tablet (Farxiga) sertraline 50 mg tablet 50 mg PO QDAY 04/27/2204/27 History Allergies Allergy/AdvReac Type Severity Reaction Status Date / Time Penicillins Allergy Verified 04/02/20 00:14 Visit Medications Acetaminophen (Acetaminophen 325 Mg Tablet) 650 mg PO Q6H PRN PRN Reason: Fever >100.5 Stop: 09/01/24 17:39 Acetaminophen (Acetaminophen 325 Mg Tablet) 650 mg PO Q6H PRN PRN Reason: PAIN SCALE 1-3 (mild Stop: 09/01/24 17:39 Aspirin (Aspirin Ec 81 Mg Tabec) 81 mg PO QDAY [facility] Stop: 09/02/24 08:59 Dextrose (Dextrose 50%-Water Inj 50 Ml Syringe) 25 ml IV Q15MIN PRN PRN Reason: BG 50-70 responsive npo pt Stop: 09/01/24 18:02 Dextrose (Dextrose 50%-Water Inj 50 Ml Syringe) 50 ml IV Q15MIN PRN PRN Reason: BG <50 OR BG <70 & pt unresponsive Stop: 09/01/24 18:02 Docusate Sodium (Docusate Sod 100 Mg Capsule) 100 mg PO QDAY [facility]; Protocol Stop: 09/02/24 08:59 Glucagon (Glucagon Inj 1 Mg Vial) 1 mg IM Q15MIN PRN PRN Reason: BG <70, and no IV access Heparin Sodium (Porcine) (Heparin Sod Inj 5000 Unit/Ml Vial) 5,000 unit SC Q8HR [facility] Stop: 08/16/24 21:59 Last Admin: 08/02/24 22:16 Dose: 5,000 unit Sodium Chloride (Ns) 1,000 mls @ 75 mls/hr IV .[id number] [facility] Stop: 08/03/24 07:01 Last Infusion: 08/02/24 20:33 Dose: 0 mls/hr Azithromycin 500 mg/ Sodium (Chloride) 250 mls @ 250 mls/hr IV QDAY [facility] Stop: 08/09/24 17:43 Norepinephrine/Dextrose (Levophed In D5w 8mg/250ml) 8 mg in 250 mls @ 4.805 mls/hr IV .Q24H PRN; Protocol PRN Reason: PER PROTOCOL Stop: 09/01/24 22:08 Last Titration: 08/02/24 22:07 Dose: 0.05 mcg/kg/min, 4.805 mls/hr Insulin Human Lispro (Insulin Lispro (Admelog) 1 Unit/0.01 Ml Unit) 0 unit SC AC [facility]; Protocol Stop: 09/02/24 07:29 Levalbuterol HCl (Levalbuterol Rt 1.25 Mg/0.5 Ml Nebu) 1.25 mg INH Q8HR [facility] Stop: 09/01/24 17:44 Last Admin: 08/02/24 18:39 Dose: 1.25 mg Nicotine (Nicotine Patch 14 Mg/24 Hr Patch.Td24) 14 mg TOP QDAY [facility] Stop: 09/02/24 08:59 Ondansetron HCl (Ondansetron Inj 2 Mg/Ml Inj 2 Ml) 4 mg IV Q6H PRN; Protocol PRN Reason: NAUSEA OR VOMITING Stop: 09/01/24 17:39 Oseltamivir Phosphate (Oseltamivir 75 Mg Capsule) 30 mg PO QDAY [facility] Stop: 08/09/24 18:29 Last Admin: 08/02/24 22:12 Dose: Not Given Sodium Chloride (Sodium Chloride Rt Nadine 0.9% 3 Ml Nebu) 3 ml INH PRN PRN PRN Reason: SOLN Stop: 09/01/24 17:42 Discontinued Medications Bumetanide (Bumetanide Inj 0.25 Mg/Ml Vial 4 Ml) 2 mg IVP X1 ONE Stop: 08/02/24 21:48 Bumetanide (Bumetanide Inj 0.25 Mg/Ml Vial 4 Ml) 2 mg IVP X1 ONE Stop: 08/02/24 22:10 Ceftriaxone Sodium 1,000 mg/ (Sodium Chloride) 50 mls @ 100 mls/hr IV X1 ONE Stop: 08/02/24 17:02 Last Infusion: 08/02/24 17:50 Dose: Infused Azithromycin 500 mg/ Sodium (Chloride) 250 mls @ 250 mls/hr IV X1 ONE Stop: 08/02/24 18:59 Last Infusion: 08/02/24 19:41 Dose: Infused Norepinephrine/Dextrose (Levophed In D5w 8mg/250ml) 8 mg in 250 mls @ 4.805 mls/hr IV .Q24H PRN; Protocol PRN Reason: PER PROTOCOL Stop: 09/01/24 21:46 Last Titration: 08/02/24 22:12 Dose: 0.05 mcg/kg/min, 4.805 mls/hr Levalbuterol HCl (Levalbuterol Rt 1.25 Mg/0.5 Ml Nebu) 1.25 mg INH Q8HR PRN PRN Reason: WHEEZING Stop: 09/01/24 17:42 Methylprednisolone Sodium Succinate (Methylprednisolone Sod Succ 40 Mg Vial) 80 mg IVP X1 ONE Stop: 08/02/24 18:28 Last Admin: 08/02/24 19:14 Dose: 80 mg Oseltamivir Phosphate (Oseltamivir 75 Mg Capsule) 75 mg PO BID [facility] Stop: 08/09/24 20:59 Assessment & Plan Plan 79-year-old female patient with PMHx significant for HFrEF, hyperthyroidism, NIDDM II, HTN, Hx of smoking, admitted for AHRF in setting of Flu A. Patient was noted to have worsening SOB along with MAP<60, ICU team was consulted for further evaluation and care. Upon examining patient she was found to have bilateral crackles along with wheezing, on review of patient's chart she was noted to have EF of around 35% back in 2017, she states that she follows with Dr. Vasquez and had an Echocardiogram about 3 months ago. 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 CVS #Cardiogenic shock BNP >3280, Bl Crackles. -Patient started on Levophed maintaining MAP>65 -Started patient on Bumetanide 2mg IVP Q6hr. -Strict I&O's -Fluid restriction to 1200cc. -F/U on echo from Dr. Vasquez's office. -Cardiology consulted, recs appreciated. #NSTEMI type II Demand ischemia 2/2 pulmonary edema. Down trended. #Lactic acidosis 2/2 hypoperfusion/hypotension Patient started on Levo, maintaining MAP>65 Down trended. Resp #Acute hypoxic respiratory failure 2/2 pulmonary congestion. #PNA 2/2 FLU A #Possible COPD- further evaluation with PFTs outpatient Dounebs Q6hrs. Oxygen as needed. Oseltamavir Ceftriaxone/ Azithromycin Hold on giving Methylprednisolone in setting of FLU A F/U MRSA screen along with sputum culture. Renal #STEPHEN in setting of fluid overload #Metabolic acidosis #Lactic acidosis Diurese with Q6 Bumetanide. F/U renal panel. ID #PNA 2/2 FLU A Managment as per Pulm Heme #Anemia Likely dilutional Continue to monitor daily CBC Further workup as indicated. Endo #NIDDM -Maintain BG between 140-180 ideally -Patient started on ISS. -HbA1c 6.7 on (04/26) GI #No active issues. DVT prophylaxis: Heparin SC Diet: Cardiac w Fluid restriction Dejesus: + Lines: PIV, LIJ, right arterial line CODE STATUS: Full code Reason for hospitalization/disposition: Cardiogenic shock/ AHRF Plan of care discussed with Dr. Rudy Yusuf. PGY-3
[2024-08-02 23:12] LABS: Reflex Lactate? Y
[2024-08-03] VITALS (111 sets, daily range): BP systolic 77–131; BP diastolic 38–78; PULSE 70–169; RESP 12–42; TEMP 36.1–36.7; O2SAT 91–100
[2024-08-03] MEDS: BUMETANIDE INJ 0.25 MG/ML VIAL 4 ML 2 MG IVP ×3 (00:45→20:10)
[2024-08-03 05:04] LABS: Lactic Acid, 3 HR 1.8 mMol/L (0.4-2.0)
[2024-08-03 05:11] LABS: Basophils % (Auto) 0 % (0-2.5); Eosinophils % (Auto) 0 % (0-10); Hematocrit 28.5 % (36.0-46.0); Hemoglobin 9.8 g/dL (12.0-16.0); Immature Granulocytes % (Auto) 1 % (0-0); Immature Granulocytes Auto 0.06 Thou/mm3 (0.00-0.00); Lymphocytes # (Auto) 0.2 Thou/mm3 (1.0-4.8); Lymphocytes % (Auto) 4 % (10-50); Mean Corpuscular HGB Conc 34.4 g/dl (31.0-37.0); Mean Corpuscular Hemoglobin 31.7 pg (25.0-35.0); Mean Corpuscular Volume 92 fL (80-100); Monocytes # (Auto) 0.2 Thou/mm3 (0.0-0.8); Monocytes % (Auto) 3 % (0-12); Neutrophils # (Auto) 5.4 Thou/mm3 (1.8-7.7); Neutrophils % (Auto) 92 % (37-80); Nucleated Red Blood Cell % 0 /100 WBC (0); Platelet Count 238 Thou/mm3 (140-440); RDW Standard Deviation 49.9 fL (36.4-46.3); Red Blood Count 3.09 Miln/mm3 (4.00-5.20); White Blood Count 5.8 Thou/mm3 (3.6-11.0)
[2024-08-03 05:37] LABS: Glucose Estimated Average 148 mg/dL (80-131); Hemoglobin A1C 6.8 % Hgb (4.8-6.0)
[2024-08-03 05:44] LABS: Alanine Aminotransferase 21 U/L (10-49); Albumin, Serum 3.7 gm/dL (3.4-4.8); Albumin/Globulin Ratio 1.3 (1.2-2.2); Alkaline Phosphatase 104 U/L (46-116); Anion Gap 17 (7-16); Aspartate Amino Transferase 37 U/L (0-34); BUN/Creatinine Ratio 24 Ratio (12-20); Bilirubin,Total 0.3 mg/dL (0.3-1.2); Blood Urea Nitrogen 53 mg/dL (9-23); Calcium 8.5 mg/dL (8.3-10.6); Calcium (Corrected) 8.7 mg/dL (8.5-10.1); Chloride 108 mMol/L (98-107); Cholesterol 105 mg/dL (132-200); Creatinine (Component) 2.2 mg/dL (0.6-1.3); Estimated Creatinine Clearance 15.9 mL/min (>60); Globulin 2.9 gm/dL (2.3-3.5); Glucose 296 mg/dL (74-106); HDL Cholesterol 26 mg/dL (40-60); LDL Cholesterol,Calculated 65 mg/dL (0-130); Magnesium 2.4 mg/dL (1.6-2.6); Osmolality,Calculated 302 (275-295); Potassium 3.6 mMol/L (3.4-5.1); Sodium 139 mMol/L (136-145); Thyroid Stimulating Hormone 0.31 uIU/mL (0.55-4.78); Total Protein 6.6 gm/dL (5.7-8.2); Triglycerides 71 mg/dL (30-150); eGFR 22 See Note
[2024-08-03 05:59] LABS: Carbon Dioxide 14.5 mMol/L (20.0-31.0)
[2024-08-03 06:25] LABS: Base Excess -10 (-3-3); HCO3 14 mEq/L (20-26); Inspired Oxygen, FIO2 30 %; O2 Saturation 96 % (91-98); PCO2 28 mmHg (32.0-48.0); PO2 78 mmHg (83-108); pH, Arterial 7.32 (7.35-7.45)
[2024-08-03 06:28] LABS: Allen Test Not Performed; Puncture Site Right Brachial
[2024-08-03] MEDS: HEPARIN SOD INJ 5000 UNIT/ML VIAL SC ×2 (06:44→20:11)
[2024-08-03] MEDS: ALBUTEROL/IPRATROPIUM (Duoneb) RT SOL 3 ML NEBU INH ×2 (07:10→13:18)
[2024-08-03 07:49] LABS: Free T4 (Free Thyroxine) 1.12 ng/dL (0.89-1.76)
[2024-08-03] MEDS: ASPIRIN EC 81 MG TABEC PO (08:33)
[2024-08-03] MEDS: INSULIN LISPRO (AdmeLOG) 1 UNIT/0.01 ML UNIT SC ×2 (08:33→20:50)
[2024-08-03] MEDS: DOCUSATE SOD 100 MG CAPSULE PO (08:33)
[2024-08-03] MEDS: NICOTINE PATCH 14 MG/24 HR PATCH.TD24 TOP (08:33)
[2024-08-03] MEDS: INSULIN GLARGINE (Lantus) 5 UNIT/0.05 ML (PER 5 UNITS) SC ×2 (08:34→20:49)
--- NOTE | 2024-08-03 08:50 | PC.PT ---
PT eval received when patient was in the ER. Patient was transferred to ICU and is on Bipap. Will cancel PT evaluation at this time.
[2024-08-03] MEDS: OSELTAMIVIR 30 MG CAPSULE PO (09:05)
[2024-08-03 10:01] LABS: Beta Hydroxybutyrate 2.1 mmol/L (<0.6)
--- NOTE | 2024-08-03 10:02 | PC.SS ---
BLEACH PLANT OPERATOR conducted bedside contact with the patient conduct initial assessment and to discuss discharge planning.? At bedside with patient was daughter, Caprice Flores .? Patient on high flow nasal cannula.? Daughter provided information for assessment and discharge planning.? Patient resides at home with daughter.? Patient utilizes a wheelchair to assist with mobility. Patient does not utilize home oxygen.? Patient requires assistance with the completion of ADL?s.? Patient?s daughter, Caprice; provides assistance with ADL?s and provide transportation on behalf of the patient.? Patient?s medical surrogate decision maker is Caprice valdez.? Patient?s PCP is Dr. Court Tompkins.? The patient?s manager marketing sales is Dr. Garnica.? The patient does not participate with dialysis.? The patient possesses Type II diabetes.? Patient utilizes [facility] for medication services.? Discharge plan is for the patient to return home at the time of discharge.? Family will provide transportation on behalf of the patient.? If patient requires home oxygen no preferred DME vendor identified.? If home health recommended no preferred agency identified. ?No further intervention required at this time, social media coordinator will be available to address any further concerns.? Next of Kin: Caprice Flores D/C Plan: Home
[2024-08-03] MEDS: DOBUTamine/D5w 500 MG IVPB 500 MG/250 ML BAG IV (10:25)
[2024-08-03] MEDS: INSULIN REG 100 UNITS/100 ML 100 UNIT in PRE-MIXED 1 BAG 5.28 UNIT IV (10:30)
[2024-08-03 11:15] LABS: Base Excess, Venous -8 (-3-3); O2 Saturation, Venous 61 % (96-97); PCO2, Venous 37 mmHg (36-56); PO2, Venous 37 mmHg (15-58); pH, Venous 7.29 (7.33-7.66)
[2024-08-03] MEDS: POTASSIUM CHLORIDE 10% 20 MEQ/15 ML UDC 40 MEQ GT (12:01)
[2024-08-03] MEDS: DEXTROSE 10%-WATER 1,000 ML 50 ML IV (13:59)
[2024-08-03 15:16] LABS: Base Excess, Venous -8 (-3-3); Lactate (Lactic Acid) 2.2 mMol/L (0.4-2.0); O2 Saturation, Venous 83 % (96-97); PCO2, Venous 33 mmHg (36-56); PO2, Venous 56 mmHg (15-58); pH, Venous 7.32 (7.33-7.66)
[2024-08-03 15:49] LABS: Albumin, Serum 3.8 gm/dL (3.4-4.8); Anion Gap 11 (7-16); BUN/Creatinine Ratio 25 Ratio (12-20); Blood Urea Nitrogen 55 mg/dL (9-23); Calcium 8.6 mg/dL (8.3-10.6); Calcium (Corrected) 8.8 mg/dL (8.5-10.1); Carbon Dioxide 17.1 mMol/L (20.0-31.0); Chloride 113 mMol/L (98-107); Creatinine (Component) 2.2 mg/dL (0.6-1.3); Estimated Creatinine Clearance 15.9 mL/min (>60); Glucose 115 mg/dL (74-106); Magnesium 2.4 mg/dL (1.6-2.6); Osmolality,Calculated 297 (275-295); Phosphorous 4.4 mg/dL (2.4-5.1); Potassium 4.6 mMol/L (3.4-5.1); Sodium 141 mMol/L (136-145); eGFR 22 See Note
--- NOTE | 2024-08-03 17:41 | ESPR_ITS ---
<Statement entered by Seda Lee MD - 08/03/24 18:10> patient was examined bedside this morning, her bicarb was 14.5 , with AG of 17 . most likely early DKA or starvation ketoacidosis , her BHB was 2.1 . she was started on iv insulin wih D10 ,was transition to SQ insulin after gap closed . started her on diet . she is currently on high flow. started her on Dobutamine drip for possible cardio renal.Bedside ultrasound done to check for IVC compressibility, measured at 1.4 cm. Will continue to diurese patient with IV Bumex 2 mg twice daily and maximize cardiac output with dobutamine, with pressor support I discussed with and supervised my co-resident involved in the care of this patient. I agree with the assessment and plan as documented above. Seda Lee,[id number] Disclaimer: Despite multiple revisions, due to the dictation software being used, the document below may not be free of grammatical errors including phonetic/typographic errors. However, this does not deter from our commitment to providing health care in the patient's best interest in mind. Documentation for date of: 08/03/24 Subjective Subjective Interval history: Patient seen and examined at bedside. She is an 79-year-old female with a past medical history of hypertension, hyperlipidemia, hypothyroidism and HFrEF being followed by real estate account executive Dr. Vasquez who presented to the ED with shortness of breath. The patient was admitted for management of acute hypoxic respiratory failure secondary to influenza with superimposed bilateral pneumonia as well as possible acute decompensated heart disease. Echocardiogram pending. Patient was admitted to the ICU because she was consistently hypotensive and could not be given IV fluids for possibility of fluid overload. Admitted for pressor support. Initially was on BiPAP, transition to high flow oxygen at 35 L, saturating well. Additionally, patient does have an anion gap metabolic acidosis, although glucose not significantly elevated, BHB done-2.1. Initial ABG this morning shows a pH of 7.32 with a bicarb of 14 and pCO2 28. Insulin drip started per DKA protocol and anion gap is now closed, now at11. Bedside ultrasound done to check for IVC compressibility, measured at 1.4 cm. Will continue to diurese patient with IV Bumex 2 mg twice daily and maximize cardiac output with dobutamine, with pressor support Exam Vital Signs Temp Pulse Resp BP Pulse Ox O2 Del Method O2 Flow Rate 98.1 F 96 21 H 109/57 L 98 Oxy Mask 35 08/03/24 16:00 08/03/24 17:15 08/03/24 17:15 08/03/24 17:15 08/03/24 17:15 08/03/24 00:00 08/03/24 14:11 FiO2 50 08/03/24 14:11 Narrative Exam GENERAL: AAOX3 NEURO: COMPILATION CLERK grossly intact, moves extremities x4 HEENT: Dry mucosa. Eyes open, symmetrical, & clear CARDIO: No chest pain on palpation. Heart RRR, no obvious murmurs PULM: On high flow oxygen, crackles bilaterally GI: Abdomen soft, nondistended, mildly tender epigastric region on palpation. BSx4 URO/MARKETING SUPPORT SPECIALIST:: No further abnormalities noted. Dejesus catheter in situ SKIN/MSK/EXT: No wounds/rashes/edema/amputations, no pain on palpation. Pedal pulses present B/L Objective Labs 08/08/24 05:00 08/08/24 05:00 Labs: Laboratory Results - last 24 hr 08/02/24 08/02/24 08/02/24 17:10 17:51 19:25 WBC RBC Hgb Hct MCV MCH MCHC RDW Std Deviation Plt Count Neut % (Auto) Lymph % (Auto) [place] % (Auto) Eos % (Auto) Baso % (Auto) Neut # (Auto) Lymph # (Auto) [place] # (Auto) Eos # (Auto) Baso # (Auto) Immature Gran # (Auto) Absolute Nucleated RBC Immature Gran % Nucleated RBC % Puncture Site Right Radial ABG pH 7.25 L ABG pCO2 40 ABG pO2 26 L* ABG HCO3 18 L ABG O2 Saturation 34 L ABG Base Excess -9 L VBG pH VBG pCO2 VBG pO2 VBG O2 Sat (Tobin) VBG Base Excess FiO2 32 Sodium Potassium Chloride Carbon Dioxide Anion Gap BUN Creatinine Estim Creat Clear Calc eGFR BUN/Creatinine Ratio Glucose Estimated Ave Glu mg/dL Hemoglobin A1c Calculated Osmolality Lactic Acid Calcium Corrected Calcium Phosphorus Magnesium Total Bilirubin AST ALT Alkaline Phosphatase Troponin I Total Protein Albumin Globulin Albumin/Globulin Ratio Triglycerides Cholesterol LDL Cholesterol, Calc HDL Cholesterol Cholesterol/HDL Ratio Beta-Hydroxybutyrate/Acetoacetate Procalcitonin 0.57 H TSH Free T4 Ur Collection Type Clean Catch Urine Color Yellow Urine Clarity Turbid A Urine pH 7.0 Ur Specific [place] 1.015 Urine Protein 1+ A Urine Glucose (UA) 4+ A Urine Ketones Negative Urine Blood 1+ A Urine Nitrite Negative Urine Bilirubin Negative Urine Urobilinogen (Auto) Negative Ur Leukocyte Esterase Positive Urine RBC 13 H Urine WBC 433 H Ur Squamous Epith Cells 12 H Urine Bacteria None Ur Culture Indicated? Contaminated 08/02/24 08/02/24 08/03/24 19:59 21:12 04:35 WBC 5.8 RBC 3.09 L Hgb 9.8 L Hct 28.5 L MCV 92 MCH 31.7 MCHC 34.4 RDW Std Deviation 49.9 H Plt Count 238 Neut % (Auto) 92 H Lymph % (Auto) 4 L [place] % (Auto) 3 Eos % (Auto) 0 Baso % (Auto) 0 Neut # (Auto) 5.4 Lymph # (Auto) 0.2 L [place] # (Auto) 0.2 Eos # (Auto) 0.0 Baso # (Auto) 0.0 Immature Gran # (Auto) 0.06 H Absolute Nucleated RBC 0.00 Immature Gran % 1 H Nucleated RBC % 0 Puncture Site ABG pH ABG pCO2 ABG pO2 ABG HCO3 ABG O2 Saturation ABG Base Excess VBG pH VBG pCO2 VBG pO2 VBG O2 Sat (Tobin) VBG Base Excess FiO2 Sodium 139 Potassium 3.6 Chloride 108 H Carbon Dioxide 14.5 L* Anion Gap 17 H BUN 53 H Creatinine 2.2 H Estim Creat Clear Calc 15.9 L eGFR 22 L BUN/Creatinine Ratio 24 H Glucose [address] Glu mg/dL 148 H Hemoglobin A1c 6.8 H Calculated Osmolality 302 H Lactic Acid 3.4 H 3.0 H 1.8 Calcium 8.5 Corrected Calcium 8.7 Phosphorus Magnesium 2.4 Total Bilirubin 0.3 AST 37 H ALT 21 Alkaline Phosphatase 104 Troponin I 0.153 H* Total Protein 6.6 Albumin 3.7 D Globulin 2.9 Albumin/Globulin Ratio 1.3 Triglycerides 71 Cholesterol 105 L LDL Cholesterol, Calc 65 HDL Cholesterol 26 L Cholesterol/HDL Ratio 4.0 Beta-Hydroxybutyrate/Acetoacetate Procalcitonin TSH 0.31 L Free T4 1.12 Ur Collection Type Urine Color Urine Clarity Urine pH Ur Specific [place] Urine Protein Urine Glucose (UA) Urine Ketones Urine Blood Urine Nitrite Urine Bilirubin Urine Urobilinogen (Auto) Ur Leukocyte Esterase Urine RBC Urine WBC Ur Squamous Epith Cells Urine Bacteria Ur Culture Indicated? 08/03/24 08/03/24 08/03/24 06:18 09:40 10:50 WBC RBC Hgb Hct MCV MCH MCHC RDW Std Deviation Plt Count Neut % (Auto) Lymph % (Auto) [place] % (Auto) Eos % (Auto) Baso % (Auto) Neut # (Auto) Lymph # (Auto) [place] # (Auto) Eos # (Auto) Baso # (Auto) Immature Gran # (Auto) Absolute Nucleated RBC Immature Gran % Nucleated RBC % Puncture Site Right Brachial ABG pH 7.32 L ABG pCO2 28 L D ABG pO2 78 L D ABG HCO3 14 L ABG O2 Saturation 96 ABG Base Excess -10 L VBG pH 7.29 L VBG pCO2 37 VBG pO2 37 VBG O2 Sat (Tobin) 61 L VBG Base Excess -8 L FiO2 30 Sodium Potassium Chloride Carbon Dioxide Anion Gap BUN Creatinine Estim Creat Clear Calc eGFR BUN/Creatinine Ratio Glucose Estimated Ave Glu mg/dL Hemoglobin A1c Calculated Osmolality Lactic Acid Calcium Corrected Calcium Phosphorus 6.0 H Magnesium Total Bilirubin AST ALT Alkaline Phosphatase Troponin I Total Protein Albumin Globulin Albumin/Globulin Ratio Triglycerides Cholesterol LDL Cholesterol, Calc HDL Cholesterol Cholesterol/HDL Ratio Beta-Hydroxybutyrate/Acetoacetate 2.1 H Procalcitonin TSH Free T4 Ur Collection Type Urine Color Urine Clarity Urine pH Ur Specific [place] Urine Protein Urine Glucose (UA) Urine Ketones Urine Blood Urine Nitrite Urine Bilirubin Urine Urobilinogen (Auto) Ur Leukocyte Esterase Urine RBC Urine WBC Ur Squamous Epith Cells Urine Bacteria Ur Culture Indicated? 08/03/24 14:57 WBC RBC Hgb Hct MCV MCH MCHC RDW Std Deviation Plt Count Neut % (Auto) Lymph % (Auto) [place] % (Auto) Eos % (Auto) Baso % (Auto) Neut # (Auto) Lymph # (Auto) [place] # (Auto) Eos # (Auto) Baso # (Auto) Immature Gran # (Auto) Absolute Nucleated RBC Immature Gran % Nucleated RBC % Puncture Site ABG pH ABG pCO2 ABG pO2 ABG HCO3 ABG O2 Saturation ABG Base Excess VBG pH 7.32 L VBG pCO2 33 L VBG pO2 56 VBG O2 Sat (Tobin) 83 L VBG Base Excess -8 L FiO2 Sodium 141 Potassium 4.6 D Chloride 113 H Carbon Dioxide 17.1 L Anion Gap 11 BUN 55 H Creatinine 2.2 H Estim Creat Clear Calc 15.9 L eGFR 22 L BUN/Creatinine Ratio 25 H Glucose [address] Glu mg/dL Hemoglobin A1c Calculated Osmolality 297 H Lactic Acid 2.2 H Calcium 8.6 Corrected Calcium 8.8 Phosphorus 4.4 Magnesium 2.4 Total Bilirubin AST ALT Alkaline Phosphatase Troponin I Total Protein Albumin 3.8 Globulin Albumin/Globulin Ratio Triglycerides Cholesterol LDL Cholesterol, Calc HDL Cholesterol Cholesterol/HDL Ratio Beta-Hydroxybutyrate/Acetoacetate Procalcitonin TSH Free T4 Ur Collection Type Urine Color Urine Clarity Urine pH Ur Specific [place] Urine Protein Urine Glucose (UA) Urine Ketones Urine Blood Urine Nitrite Urine Bilirubin Urine Urobilinogen (Auto) Ur Leukocyte Esterase Urine RBC Urine WBC Ur Squamous Epith Cells Urine Bacteria Ur Culture Indicated? ABG Interpretation ABG results: 08/02/24 08/03/24 08/03/24 19:25 06:18 10:50 ABG pH 7.25 L 7.32 L ABG pCO2 40 28 L D ABG pO2 26 L* 78 L D ABG HCO3 18 L 14 L ABG O2 Saturation 34 L 96 ABG Base Excess -9 L -10 L VBG pH 7.29 L VBG pCO2 37 VBG pO2 37 VBG Base Excess -8 L 08/03/24 14:57 ABG pH ABG pCO2 ABG pO2 ABG HCO3 ABG O2 Saturation ABG Base Excess VBG pH 7.32 L VBG pCO2 33 L VBG pO2 56 VBG Base Excess -8 L Quality Measures Quality Measures none Advance care planning discussed with:: patient and child Assessment & Plan Assessment Current Active Medications: Generic Name Dose Route Start Last Admin Trade Name Freq PRN Reason Stop Dose Admin Acetaminophen 650 mg 08/02/24 17:40 Acetaminophen 325 Mg Tablet PO 09/01/24 17:39 Q6H PRN Fever >100.5 Acetaminophen 650 mg 08/02/24 17:40 Acetaminophen 325 Mg Tablet PO 09/01/24 17:39 Q6H PRN PAIN SCALE 1-3 (mild Albuterol/Ipratropium 3 ml 08/03/24 07:00 08/03/24 13:18 Albuterol/Ipratropium (Duoneb) Rt Nadine 3 Ml Nebu INH 09/02/24 06:59 3 ml Q6HRRT JUAN LUIS Administration Aspirin 81 mg 08/03/24 09:00 08/03/24 08:33 Aspirin Ec 81 Mg Tabec PO 09/02/24 08:59 81 mg QDAY JUAN LUIS Administration Bumetanide 2 mg 08/03/24 21:00 Bumetanide Inj 0.25 Mg/Ml Vial 4 Ml IVP 09/02/24 20:59 BID JUAN LUIS Dextrose 25 ml 08/02/24 18:03 Dextrose 50%-Water Inj 50 Ml Syringe IV 09/01/24 18:02 Q15MIN PRN BG 50-70 responsive npo pt Dextrose 50 ml 08/02/24 18:03 Dextrose 50%-Water Inj 50 Ml Syringe IV 09/01/24 18:02 Q15MIN PRN BG <50 OR BG <70 & pt unresponsive Dextrose 25 ml 08/03/24 10:03 Dextrose 50%-Water Inj 50 Ml Syringe IV [id number] PRN Blood Sugar - Low Docusate Sodium 100 mg 08/03/24 09:00 08/03/24 08:33 Docusate Sod 100 Mg Capsule PO 09/02/24 08:59 100 mg QDAY JUAN LUIS Administration Protocol Glucagon 1 mg 08/02/24 18:03 Glucagon Inj 1 Mg Vial IM Q15MIN PRN BG <70, and no IV access Heparin Sodium (Porcine) 5,000 unit 08/03/24 21:00 Heparin Sod Inj 5000 Unit/Ml Vial SC 08/17/24 20:59 Q12HR JUAN LUIS Azithromycin 500 mg/ Sodium 250 mls @ 250 mls/hr 08/03/24 18:00 Chloride IV 08/10/24 17:59 DAILY@1800 [facility] Norepinephrine/Dextrose 8 mg in 250 mls @ 4.805 mls/hr 08/02/24 22:09 08/03/24 16:00 Levophed In D5w 8mg/250ml IV 09/01/24 22:08 0.05 mcg/kg/min .Q24H PRN 4.805 mls/hr PER PROTOCOL Titration Protocol 0.05 MCG/KG/MIN Potassium Chloride 10 meq in 100 mls @ 100 mls/hr 08/03/24 10:03 Kcl Ivpb IV 09/02/24 10:02 .Q1H PRN IF POTASSIUM LESS THAN 3.3 Magnesium Sulfate 2 gm in 50 mls @ 25 mls/hr 08/03/24 10:03 Magnesium Sulfate Ivpb IV 09/02/24 10:02 .Q2H PRN PER DKA PROTOCOL Insulin Human Regular 100 unit 100 mls @ 5.28 mls/hr 08/03/24 10:03 08/03/24 13:00 / IV Miscellaneous Supplies IV 09/02/24 10:02 0 unit/kg/hr .[id number] PRN 0 mls/hr PER PROTOCOL Titration Protocol 0.1 UNIT/KG/HR Potassium Chloride 10 meq in 100 mls @ 50 mls/hr 08/03/24 10:03 Kcl Ivpb IV 09/02/24 10:02 PRN PRN K LEVEL 3.3 to 5.3 & BG > 200 Potassium Phosphate 15 mmol in 250 mls @ 62.5 mls/hr 08/03/24 10:03 Pot Phos 15 Mmol In Ns 250 Ml IV 09/02/24 10:02 PRN PRN Phosphate <= 1mg/dL Sodium Phosphate 15 mmol/ 255 mls @ 62.5 mls/hr 08/03/24 10:03 Sodium Chloride IV 09/02/24 10:02 .Q4H5M PRN Phosphate <= 1mg/dL and K> than 5.3 Dextrose 1,000 mls @ 50 mls/hr 08/03/24 13:15 08/03/24 16:22 D10w IV 08/04/24 09:04 0 mls/hr .Q20H JUAN LUIS Infusion Dobutamine HCl/Dextrose 500 mg in 250 mls @ 3.96 mls/hr 08/03/24 15:31 Dobutrex/D5w Ivpb IV 09/02/24 09:32 .Q24H PRN PER PROTOCOL Protocol 2.5 MCG/KG/MIN Insulin Glargine 5 unit 08/03/24 21:00 Insulin Glargine (Lantus) 5 Unit/0.05 Ml (Per 5 Units) SC 09/02/24 20:59 [facility] Insulin Human Lispro 0 unit 08/03/24 07:30 08/03/24 17:31 Insulin Lispro (Admelog) 1 Unit/0.01 Ml Unit SC 09/02/24 07:29 Not Given AC [facility] Protocol Nicotine 14 mg 08/03/24 09:00 08/03/24 08:33 Nicotine Patch 14 Mg/24 Hr Patch.Td24 TOP 09/02/24 08:59 14 mg QDAY JUAN LUIS Administration Ondansetron HCl 4 mg 08/02/24 17:40 Ondansetron Inj 2 Mg/Ml Inj 2 Ml IV 09/01/24 17:39 Q6H PRN NAUSEA OR VOMITING Protocol Oseltamivir Phosphate 30 mg 08/03/24 09:00 08/03/24 09:05 Oseltamivir 30 Mg Capsule PO 08/07/24 09:01 30 mg QDAY JUAN LUIS Administration Pantoprazole Sodium 40 mg 08/03/24 17:00 Pantoprazole Inj 40 Mg Vial IV 09/02/24 16:59 QDAY JUAN LUIS Sodium Bicarbonate 50 ml 08/03/24 10:03 Sodium Bicarb Inj 8.4% Syr 50 Ml Syringe IV 09/02/24 10:02 PRN PRN For ph <= to 7.0 Sodium Chloride 3 ml 08/02/24 17:43 Sodium Chloride Rt Nadine 0.9% 3 Ml Nebu INH 09/01/24 17:42 PRN PRN SOLN Plan Summary: The patient is an 79-year-old female with a past medical history of hypertension, hyperlipidemia, hypothyroidism and HFrEF being followed by real estate account executive Dr. Vasquez who presented to the ED with shortness of breath. Neuro Awake alert oriented No active conditions Cardiovascular #History of HFrEF #Cardiogenic shock #Hypotension Initial admitting labs showed a BNP of >3280 with crackles bilaterally. The patient has a history of HFrEF and has been on Entresto. Blood pressure on admission consistently soft, patient IV fluids could not be given based on concern for fluid overload. Patient was started on IV 2 mg Admitted to ICU for pressor support. Bedside ultrasound done, IVC noncompressible Plan: -Continue IV Bumex 2 mg twice daily -Continue dobutamine and Levophed -Echocardiogram -Fluid restriction -Consider cardiology consult #Elevated troponin levels On admission, troponins elevated. Now downtrending. Possible type II demand ischemia Resp #Acute hypoxic respiratory failure #Influenza #Bilateral pneumonia The patient presented with shortness of breath. In the ED, influenza test was done which was negative. Chest x-ray showed bilateral pneumonia. Plan: -Continue ceftriaxone and azithromycin -Continue Tamiflu -Follow-up cultures and MRSA screen -BIPAP HS GI #History of gastritis The patient probably has a history of gastritis and complains of some tenderness to epigastric region and reflux occasionally. Plan: -IV Protonix Renal #Acute kidney injury #Prerenal versus cardiorenal BUN and creatinine elevated on admission. Today, creatinine is at 2.2. Although the patient has had decreased p.o. intake, this could also possibly be cardiorenal. Plan: -Continue IV Bumex -Renally dose medications -Avoid nephrotoxic meds #Anion gap metabolic acidosis #Lactic acidosis-resolved #DKA versus starvation ketosis On admission, lactic acid was elevated at 3.0. Initial glucose not significantly elevated. pH this morning still 7.32 with bicarb of 14. Lactic acidosis resolved DKA protocol initiated, anion gap closed and transition. Plan: -Continue to monitor per protocol Endo #History of type II DM The patient has a history of type II DM and is on Farxiga and glimepiride. Blood glucose on admission, 254 BHB was checked which was 2.1, patient's had DKA protocol initiated. A1c-6.8. Anion gap closed Plan: -SC Lantus 5 units -ISS -Hypoglycemic protocols in place Infectious #Influenza A #Bilateral pneumonia On admission, bedside influenza A test was positive. Chest x-ray showed bilateral pneumonia. Patient was started on IV antibiotics-ceftriaxone and azithromycin as well as Tamiflu. Plan: -Continue ceftriaxone and azithromycin -Continue Tamiflu -Pending cultures Health maintenance: Dispo: ICU for acute hypoxic respiratory failure and cardiogenic shock, requiring pressor support. Diet: Carb consistent low, dysphagia-mechanical altered GI: Pantoprazole DVT: SC heparin Dejesus: None Lines: Peripheral Med Rec: Pending, f/u PT: Not ordered Code: DNR Attending Provider Attestation/Addendum Patient seen and examined with the above resident, Kaya Sidhu MD. I agree with the findings, assessment, and plan of care as documented except for any differences below. Patient with influenza A pnuemonia with significant volume overload now and exacerbation of underlying HfrEF. Also AGMA with renal dysfunction. Will attempt to use insulin gtt to rapidly correct ketoacidosis though more consistent with starvation than true DKA. Rapid correction will help with respiratory status as well as metabolic status overall. Patient starte don tamiflu and empiric coverage for CAP though less suspect of superimposed bacterial pneumonia now. Patient with hypotension, poor perfusion with mentation and low UOP. Started on combination therapy with levophed and dobutamine for ongoing optimization of volume status. Limite ddiuresis possible without this and will continue on Bumex once markers of perfusion do improve. Patient with continued need for HHHFNC and should us eBipap as needed during the day with continuous use overnight. Patient's overall prognosis remains guarded but has reversible disease for now. Total critical care time: I personally spent 40 minutes for review of physiologic parameters and directing plan of care throughout the day. This is exclusive of time spent teaching housestaff or performing any separate billable procedures. Patient remains at risk for furthe rmorbidity and mortality warranting close monitoring and care only available in the ICU. She is recieving critical care services for acute hypoxic respiratory failure with influenza A pneumoni and acute on chronic HFrEF.
[2024-08-03] MEDS: PANTOPRAZOLE INJ 40 MG VIAL IV (17:44)
[2024-08-03] MEDS: AZITHROMYCIN INJ 500 MG in SODIUM CHLORIDE 0.9% 250 ML 250 ML 250 MG IV (17:48)
[2024-08-03 18:18] LABS: Reflex Lactate? Y
[2024-08-03 19:22] LABS: Lactate (Lactic Acid) 1.9 mMol/L (0.4-2.0)
[2024-08-03 19:23] LABS: Base Excess, Venous -9 (-3-3); O2 Saturation, Venous 88 % (96-97); PCO2, Venous 30 mmHg (36-56); PO2, Venous 60 mmHg (15-58); pH, Venous 7.34 (7.33-7.66)
[2024-08-03 19:48] LABS: Albumin, Serum 3.5 gm/dL (3.4-4.8); Anion Gap 13 (7-16); BUN/Creatinine Ratio 24 Ratio (12-20); Blood Urea Nitrogen 53 mg/dL (9-23); Calcium 8.2 mg/dL (8.3-10.6); Calcium (Corrected) 8.6 mg/dL (8.5-10.1); Carbon Dioxide 15.3 mMol/L (20.0-31.0); Chloride 112 mMol/L (98-107); Creatinine (Component) 2.2 mg/dL (0.6-1.3); Estimated Creatinine Clearance 15.9 mL/min (>60); Glucose 197 mg/dL (74-106); Magnesium 2.4 mg/dL (1.6-2.6); Osmolality,Calculated 298 (275-295); Potassium 4.2 mMol/L (3.4-5.1); Sodium 140 mMol/L (136-145); eGFR 22 See Note
[2024-08-03 23:42] LABS: Albumin, Serum 3.4 gm/dL (3.4-4.8); Anion Gap 11 (7-16); BUN/Creatinine Ratio 26 Ratio (12-20); Blood Urea Nitrogen 55 mg/dL (9-23); Calcium 8.3 mg/dL (8.3-10.6); Calcium (Corrected) 8.8 mg/dL (8.5-10.1); Carbon Dioxide 19.4 mMol/L (20.0-31.0); Chloride 111 mMol/L (98-107); Creatinine (Component) 2.1 mg/dL (0.6-1.3); Estimated Creatinine Clearance 16.6 mL/min (>60); Glucose 98 mg/dL (74-106); Magnesium 2.3 mg/dL (1.6-2.6); Osmolality,Calculated 296 (275-295); Phosphorous 3.5 mg/dL (2.4-5.1); Potassium 3.3 mMol/L (3.4-5.1); Sodium 141 mMol/L (136-145); eGFR 23 See Note
[2024-08-04] VITALS (112 sets, daily range): BP systolic 65–138; BP diastolic 45–82; PULSE 85–186; RESP 12–40; TEMP 36.2–36.7; O2SAT 87–100; BMI 20.7
[2024-08-04] MEDS: POTASSIUM CHLORIDE 20 mEq TABCR 80 MEQ PO (00:51)
[2024-08-04] MEDS: ALBUTEROL/IPRATROPIUM (Duoneb) RT SOL 3 ML NEBU INH ×5 (01:30→23:00)
[2024-08-04 04:34] LABS: Base Excess -7 (-3-3); HCO3 17 mEq/L (20-26); Inspired Oxygen, FIO2 30 %; O2 Saturation 96 % (91-98); PCO2 27 mmHg (32.0-48.0); PO2 74 mmHg (83-108)
[2024-08-04 04:37] LABS: Allen Test Performed/OK; Puncture Site Left Brachial
[2024-08-04 05:15] LABS: Basophils % (Auto) 0 % (0-2.5); Eosinophils % (Auto) 0 % (0-10); Hemoglobin 10.5 g/dL (12.0-16.0); Immature Granulocytes % (Auto) 1 % (0-0); Immature Granulocytes Auto 0.09 Thou/mm3 (0.00-0.00); Lymphocytes # (Auto) 0.7 Thou/mm3 (1.0-4.8); Lymphocytes % (Auto) 6 % (10-50); Mean Corpuscular HGB Conc 33.9 g/dl (31.0-37.0); Mean Corpuscular Hemoglobin 31.7 pg (25.0-35.0); Mean Corpuscular Volume 94 fL (80-100); Monocytes # (Auto) 0.7 Thou/mm3 (0.0-0.8); Monocytes % (Auto) 6 % (0-12); Neutrophils # (Auto) 11.1 Thou/mm3 (1.8-7.7); Neutrophils % (Auto) 88 % (37-80); Nucleated Red Blood Cell # 0.02 Thou/mm3 (0.00-0.00); Nucleated Red Blood Cell % 0 /100 WBC (0); Platelet Count 306 Thou/mm3 (140-440); RDW Standard Deviation 51.7 fL (36.4-46.3); Red Blood Count 3.31 Miln/mm3 (4.00-5.20); White Blood Count 12.6 Thou/mm3 (3.6-11.0)
[2024-08-04 05:43] LABS: Alanine Aminotransferase 28 U/L (10-49); Albumin, Serum 3.6 gm/dL (3.4-4.8); Albumin/Globulin Ratio 1.2 (1.2-2.2); Alkaline Phosphatase 105 U/L (46-116); Anion Gap 12 (7-16); Aspartate Amino Transferase 45 U/L (0-34); BUN/Creatinine Ratio 25 Ratio (12-20); Bilirubin,Total 0.3 mg/dL (0.3-1.2); Blood Urea Nitrogen 52 mg/dL (9-23); Calcium 8.4 mg/dL (8.3-10.6); Calcium (Corrected) 8.7 mg/dL (8.5-10.1); Carbon Dioxide 18.6 mMol/L (20.0-31.0); Chloride 112 mMol/L (98-107); Creatinine (Component) 2.1 mg/dL (0.6-1.3); Estimated Creatinine Clearance 16.6 mL/min (>60); Globulin 3.1 gm/dL (2.3-3.5); Glucose 58 mg/dL (74-106); Magnesium 2.4 mg/dL (1.6-2.6); Osmolality,Calculated 296 (275-295); Potassium 4.5 mMol/L (3.4-5.1); Sodium 143 mMol/L (136-145); Total Protein 6.7 gm/dL (5.7-8.2); eGFR 23 See Note
[2024-08-04] MEDS: ALBUTEROL RT 2.5 MG/0.5 ML NEBU 10 MG INH (08:36)
--- NOTE | 2024-08-04 08:46 | XR_ITS ---
Examination: AP chest single view Technique one AP portable upright chest single view Exam date and time: August 04, 2024 0928 hours Comparison August 02, 2024 INDICATIONS: Shortness of breath this week. FINDINGS: Extensive bilateral pneumonia Normal heart size Moderate osteopenia IMPRESSION: Extensive bilateral pneumonia, worse in the right upper lobe
[2024-08-04] MEDS: PANTOPRAZOLE INJ 40 MG VIAL IV (08:48)
[2024-08-04] MEDS: DOCUSATE SOD 100 MG CAPSULE PO (08:49)
[2024-08-04] MEDS: NICOTINE PATCH 14 MG/24 HR PATCH.TD24 TOP (08:49)
[2024-08-04] MEDS: BUMETANIDE INJ 0.25 MG/ML VIAL 4 ML 2 MG IVP (08:49)
[2024-08-04] MEDS: OSELTAMIVIR 30 MG CAPSULE PO (08:49)
[2024-08-04] MEDS: ASPIRIN EC 81 MG TABEC PO (08:49)
[2024-08-04] MEDS: HEPARIN SOD INJ 5000 UNIT/ML VIAL SC ×2 (08:50→21:13)
[2024-08-04 09:52] LABS: B-Type Natriuretic Peptide > 3280 pg/mL (0-100)
[2024-08-04] MEDS: INSULIN LISPRO (AdmeLOG) 1 UNIT/0.01 ML UNIT SC ×3 (12:28→21:13)
[2024-08-04 14:37] LABS: Albumin, Serum 3.6 gm/dL (3.4-4.8); Anion Gap 10 (7-16); BUN/Creatinine Ratio 26 Ratio (12-20); Blood Urea Nitrogen 55 mg/dL (9-23); Calcium 8.3 mg/dL (8.3-10.6); Calcium (Corrected) 8.6 mg/dL (8.5-10.1); Carbon Dioxide 18.6 mMol/L (20.0-31.0); Chloride 110 mMol/L (98-107); Creatinine (Component) 2.1 mg/dL (0.6-1.3); Estimated Creatinine Clearance 15.9 mL/min (>60); Glucose 262 mg/dL (74-106); Magnesium 2.2 mg/dL (1.6-2.6); Osmolality,Calculated 301 (275-295); Phosphorous 2.6 mg/dL (2.4-5.1); Potassium 4.8 mMol/L (3.4-5.1); Sodium 139 mMol/L (136-145); eGFR 23 See Note
--- NOTE | 2024-08-04 16:04 | PC.SS ---
Update: Patient remains on high flow oxygen. BI-PAP utilization at night. P.O. feeding. Possible downgrade tomorrow.
--- NOTE | 2024-08-04 17:17 | PD.RESPRO ---
Documentation for date of: 08/04/24 Subjective Subjective Interval history: Patient seen and examined at bedside. Overnight, was said to have a run of V. tach about 10 seconds. Labs at that time was reviewed, potassium was 3.3 and was adequately repleted. Patient was also on dobutamine at this time. At bedside today, patient states feeling okay when examination has bilateral rhonchi. Hour-long breathing treatment ordered. Blood glucose was a little low this morning, patient had breakfast and it improved. Urine output overnight only about 50 cc/h, will continue Bumex today, backing off on dobutamine and continue to monitor vital signs. Levophed has been turned off. As long as patient does well on high flow oxygen at 30% of 30 mL, will consider downgrading back to floors tomorrow. In the interim, we will keep on BiPAP at night and continue to monitor urine output and vital signs. Exam Vital Signs Temp Pulse Resp BP Pulse Ox O2 Del Method O2 Flow Rate 98.1 F 93 30 H 107/64 99 BiPAP 35 08/04/24 12:01 08/04/24 15:00 08/04/24 15:00 08/04/24 15:00 08/04/24 15:00 08/04/24 04:00 08/04/24 14:58 FiO2 45 08/04/24 14:58 Narrative Exam GENERAL: AAOX3 NEURO: BILLET CUTTER grossly intact, moves extremities x4 HEENT: Dry mucosa. Eyes open, symmetrical, & clear CARDIO: No chest pain on palpation. Heart RRR, no obvious murmurs PULM: On high flow oxygen, crackles bilaterally GI: Abdomen soft, nondistended, mildly tender epigastric region on palpation. BSx4 URO/MOTOR MAN:: No further abnormalities noted. Dejesus catheter in situ SKIN/MSK/EXT: No wounds/rashes/edema/amputations, no pain on palpation. Pedal pulses present B/L Objective Labs 08/05/24 03:45 08/05/24 03:45 Labs: Laboratory Results - last 24 hr 08/03/24 08/03/24 08/04/24 18:57 23:10 04:22 WBC RBC Hgb Hct MCV MCH MCHC RDW Std Deviation Plt Count Neut % (Auto) Lymph % (Auto) [place] % (Auto) Eos % (Auto) Baso % (Auto) Neut # (Auto) Lymph # (Auto) [place] # (Auto) Eos # (Auto) Baso # (Auto) Immature Gran # (Auto) Absolute Nucleated RBC Immature Gran % Nucleated RBC % Puncture Site Left Brachial ABG pH 7.40 ABG pCO2 27 L ABG pO2 74 L ABG HCO3 17 L ABG O2 Saturation 96 ABG Base Excess -7 L VBG pH 7.34 VBG pCO2 30 L VBG pO2 60 H VBG O2 Sat (Tobin) 88 L VBG Base Excess -9 L FiO2 30 Sodium 140 141 Potassium 4.2 3.3 L D Chloride 112 H 111 H Carbon Dioxide 15.3 L 19.4 L Anion Gap 13 11 BUN 53 H 55 H Creatinine 2.2 H 2.1 H Estim Creat Clear Calc 15.9 L 16.6 L eGFR 22 L 23 L BUN/Creatinine Ratio 24 H 26 H Glucose 197 H D 98 D Calculated Osmolality 298 H 296 H Lactic Acid 1.9 Calcium 8.2 L 8.3 Corrected Calcium 8.6 8.8 Phosphorus 4.0 3.5 Magnesium 2.4 2.3 Total Bilirubin AST ALT Alkaline Phosphatase B-Natriuretic Peptide Total Protein Albumin 3.5 3.4 Globulin Albumin/Globulin Ratio 08/04/24 08/04/24 08/04/24 04:37 05:09 14:00 WBC 12.6 H D RBC 3.31 L Hgb 10.5 L Hct 31.0 L MCV 94 MCH 31.7 MCHC 33.9 RDW Std Deviation 51.7 H Plt Count 306 D Neut % (Auto) 88 H Lymph % (Auto) 6 L [place] % (Auto) 6 Eos % (Auto) 0 Baso % (Auto) 0 Neut # (Auto) 11.1 H Lymph # (Auto) 0.7 L [place] # (Auto) 0.7 Eos # (Auto) 0.0 Baso # (Auto) 0.0 Immature Gran # (Auto) 0.09 H Absolute Nucleated RBC 0.02 H Immature Gran % 1 H Nucleated RBC % 0 Puncture Site ABG pH ABG pCO2 ABG pO2 ABG HCO3 ABG O2 Saturation ABG Base Excess VBG pH VBG pCO2 VBG pO2 VBG O2 Sat (Tobin) VBG Base Excess FiO2 Sodium 143 139 Potassium 4.5 D 4.8 Chloride 112 H 110 H Carbon Dioxide 18.6 L 18.6 L Anion Gap 12 10 BUN 52 H 55 H Creatinine 2.1 H 2.1 H Estim Creat Clear Calc 16.6 L 15.9 L eGFR 23 L 23 L BUN/Creatinine Ratio 25 H 26 H Glucose 58 L 262 H D Calculated Osmolality 296 H 301 H Lactic Acid Calcium 8.4 8.3 Corrected Calcium 8.7 8.6 Phosphorus 3.0 2.6 Magnesium 2.4 2.2 Total Bilirubin 0.3 AST 45 H ALT 28 Alkaline Phosphatase 105 B-Natriuretic Peptide > 3280 H* Total Protein 6.7 Albumin 3.6 3.6 Globulin 3.1 Albumin/Globulin Ratio 1.2 ABG Interpretation ABG results: 08/02/24 08/03/24 08/03/24 19:25 06:18 10:50 ABG pH 7.25 L 7.32 L ABG pCO2 40 28 L D ABG pO2 26 L* 78 L D ABG HCO3 18 L 14 L ABG O2 Saturation 34 L 96 ABG Base Excess -9 L -10 L VBG pH 7.29 L VBG pCO2 37 VBG pO2 37 VBG Base Excess -8 L 08/03/24 08/03/24 08/04/24 14:57 18:57 04:22 ABG pH 7.40 ABG pCO2 27 L ABG pO2 74 L ABG HCO3 17 L ABG O2 Saturation 96 ABG Base Excess -7 L VBG pH 7.32 L 7.34 VBG pCO2 33 L 30 L VBG pO2 56 60 H VBG Base Excess -8 L -9 L Quality Measures Quality Measures none Advance care planning discussed with:: patient Assessment & Plan Assessment Current Active Medications: Generic Name Dose Route Start Last Admin Trade Name Ericka PRN Reason Stop Dose Admin Acetaminophen 650 mg 08/02/24 17:40 Acetaminophen 325 Mg Tablet PO 09/01/24 17:39 Q6H PRN Fever >100.5 Acetaminophen 650 mg 08/02/24 17:40 Acetaminophen 325 Mg Tablet PO 09/01/24 17:39 Q6H PRN PAIN SCALE 1-3 (mild Albuterol/Ipratropium 3 ml 08/04/24 08:30 08/04/24 14:58 Albuterol/Ipratropium (Duoneb) Rt Nadine 3 Ml Nebu INH 09/03/24 08:29 3 ml Q4HRRT JUAN LUIS Administration Aspirin 81 mg 08/03/24 09:00 08/04/24 08:49 Aspirin Ec 81 Mg Tabec PO 09/02/24 08:59 81 mg QDAY JUAN LUIS Administration Bumetanide 1 mg 08/05/24 06:00 Bumetanide Inj 0.25 Mg/Ml Vial 4 Ml IVP 09/04/24 05:59 BIDD JUAN LUIS Dextrose 25 ml 08/02/24 18:03 Dextrose 50%-Water Inj 50 Ml Syringe IV 09/01/24 18:02 Q15MIN PRN BG 50-70 responsive npo pt Dextrose 50 ml 08/02/24 18:03 Dextrose 50%-Water Inj 50 Ml Syringe IV 09/01/24 18:02 Q15MIN PRN BG <50 OR BG <70 & pt unresponsive Dextrose 25 ml 08/03/24 10:03 Dextrose 50%-Water Inj 50 Ml Syringe IV [id number] PRN Blood Sugar - Low Docusate Sodium 100 mg 08/03/24 09:00 08/04/24 08:49 Docusate Sod 100 Mg Capsule PO 09/02/24 08:59 100 mg QDAY JUAN LUIS Administration Protocol Glucagon 1 mg 08/03/24 20:29 Glucagon Inj 1 Mg Vial IM Q15MIN PRN BG <70, and no IV access Heparin Sodium (Porcine) 5,000 unit 08/03/24 21:00 08/04/24 08:50 Heparin Sod Inj 5000 Unit/Ml Vial SC 08/17/24 20:59 5,000 unit Q12HR JUAN LUIS Administration Azithromycin 500 mg/ Sodium 250 mls @ 250 mls/hr 08/03/24 18:00 08/03/24 17:48 Chloride IV 08/06/24 20:00 250 mls/hr DAILY@1800 JUAN LUIS Administration Norepinephrine/Dextrose 8 mg in 250 mls @ 4.805 mls/hr 08/02/24 22:09 08/04/24 06:00 Levophed In D5w 8mg/250ml IV 09/01/24 22:08 Infused .Q24H PRN Titration PER PROTOCOL Protocol 0.05 MCG/KG/MIN Potassium Chloride 10 meq in 100 mls @ 100 mls/hr 08/03/24 10:03 Kcl Ivpb IV 09/02/24 10:02 .Q1H PRN IF POTASSIUM LESS THAN 3.3 Magnesium Sulfate 2 gm in 50 mls @ 25 mls/hr 08/03/24 10:03 Magnesium Sulfate Ivpb IV 09/02/24 10:02 .Q2H PRN PER DKA PROTOCOL Potassium Chloride 10 meq in 100 mls @ 50 mls/hr 08/03/24 10:03 Kcl Ivpb IV 09/02/24 10:02 PRN PRN K LEVEL 3.3 to 5.3 & BG > 200 Potassium Phosphate 15 mmol in 250 mls @ 62.5 mls/hr 08/03/24 10:03 Pot Phos 15 Mmol In Ns 250 Ml IV 09/02/24 10:02 PRN PRN Phosphate <= 1mg/dL Sodium Phosphate 15 mmol/ 255 mls @ 62.5 mls/hr 08/03/24 10:03 Sodium Chloride IV 09/02/24 10:02 .Q4H5M PRN Phosphate <= 1mg/dL and K> than 5.3 Dobutamine HCl/Dextrose 500 mg in 250 mls @ 3.066 mls/hr 08/04/24 10:51 Dobutrex/D5w Ivpb IV 09/02/24 09:32 .Q24H PRN PER PROTOCOL Protocol 2 MCG/KG/MIN Insulin Glargine 5 unit 08/03/24 21:00 08/03/24 20:49 Insulin Glargine (Lantus) 5 Unit/0.05 Ml (Per 5 Units) SC 09/02/24 20:59 5 unit HS JUAN LUIS Administration Insulin Human Lispro 0 unit 08/03/24 21:00 08/04/24 12:28 Insulin Lispro (Admelog) 1 Unit/0.01 Ml Unit SC 09/02/24 20:59 2 unit ACHS JUAN LUIS Administration Protocol Nicotine 14 mg 08/03/24 09:00 08/04/24 08:49 Nicotine Patch 14 Mg/24 Hr Patch.Td24 TOP 09/02/24 08:59 14 mg QDAY JUAN LUIS Administration Ondansetron HCl 4 mg 08/02/24 17:40 Ondansetron Inj 2 Mg/Ml Inj 2 Ml IV 09/01/24 17:39 Q6H PRN NAUSEA OR VOMITING Protocol Oseltamivir Phosphate 30 mg 08/03/24 09:00 08/04/24 08:49 Oseltamivir 30 Mg Capsule PO 08/07/24 09:01 30 mg QDAY JUAN LUIS Administration Pantoprazole Sodium 40 mg 08/03/24 17:00 08/04/24 08:48 Pantoprazole Inj 40 Mg Vial IV 09/02/24 16:59 40 mg QDAY JUAN LUIS Administration Sodium Bicarbonate 50 ml 08/03/24 10:03 Sodium Bicarb Inj 8.4% Syr 50 Ml Syringe IV 09/02/24 10:02 PRN PRN For ph <= to 7.0 Sodium Chloride 3 ml 08/02/24 17:43 Sodium Chloride Rt Nadine 0.9% 3 Ml Nebu INH 09/01/24 17:42 PRN PRN SOLN Sodium Chloride 3 ml 08/04/24 08:32 Sodium Chloride Rt Nadine 0.9% 3 Ml Nebu INH 09/03/24 08:31 PRN PRN SOLN Plan Summary: The patient is an 79-year-old female with a past medical history of hypertension, hyperlipidemia, hypothyroidism and HFrEF being followed by life cycle assessment analyst Dr. Vasquez who presented to the ED with shortness of breath. Neuro Awake alert oriented No active conditions Cardiovascular #History of HFrEF #Cardiogenic shock #Hypotension Initial admitting labs showed a BNP of >3280 with crackles bilaterally. The patient has a history of HFrEF and has been on Entresto. Blood pressure on admission consistently soft, patient IV fluids could not be given based on concern for fluid overload. Patient was started on IV 2 mg Admitted to ICU for pressor support. Bedside ultrasound done, IVC noncompressible Plan: -Bumex 2 mg twice daily from tomorrow -Echocardiogram pending -Fluid restriction 1200 cc #Elevated troponin levels On admission, troponins elevated. Now downtrending. Possible type II demand ischemia Resp #Acute hypoxic respiratory failure #Influenza #Bilateral pneumonia The patient presented with shortness of breath. In the ED, influenza test was done which was negative. Chest x-ray showed bilateral pneumonia. MRSA nares positive Plan: -Continue ceftriaxone and azithromycin -Continue Tamiflu to complete 7-day course -Mupirocin -BIPAP HS GI #History of gastritis The patient probably has a history of gastritis and complains of some tenderness to epigastric region and reflux occasionally. Plan: -IV Protonix Renal #Acute kidney injury #Prerenal versus cardiorenal BUN and creatinine elevated on admission. Today, creatinine is at 2.2. Although the patient has had decreased p.o. intake, this could also possibly be cardiorenal. Creatinine still at 2.1. Plan: -Continue IV Bumex -Renally dose medications -Avoid nephrotoxic meds #Anion gap metabolic acidosis #Lactic acidosis-resolved #DKA versus starvation ketosis On admission, lactic acid was elevated at 3.0. Initial glucose not significantly elevated. pH this morning still 7.32 with bicarb of 14. Lactic acidosis resolved DKA protocol initiated, anion gap closed and transition. Plan: -Continue to monitor per protocol Endo #History of type II DM The patient has a history of type II DM and is on Farxiga and glimepiride. Blood glucose on admission, 254 BHB was checked which was 2.1, patient's had DKA protocol initiated. A1c-6.8. Anion gap closed Plan: -SC Lantus 5 units -ISS -Hypoglycemic protocols in place Infectious #Influenza A #Bilateral pneumonia On admission, bedside influenza A test was positive. Chest x-ray showed bilateral pneumonia. Patient was started on IV antibiotics-ceftriaxone and azithromycin as well as Tamiflu. Plan: -Continue ceftriaxone and azithromycin -Continue Tamiflu -Pending cultures Health maintenance: Dispo: ICU for acute hypoxic respiratory failure and cardiogenic shock, requiring pressor support. Diet: Carb consistent low, dysphagia-mechanical altered GI: Pantoprazole DVT: SC heparin Dejesus: None Lines: Peripheral Med Rec: Pending, f/u PT: Not ordered Code: DNR Case was discussed with attending physician, Dr Annabel Sidhu MD PGY-1 Disclaimer: This note was dictated by speech recognition. Minor errors in pulp press tender may be present due to voice recognition software. Attending Provider Attestation/Addendum Patient seen and examined with the above resident, Claudette Sidhu MD. I agree with the findings, assessment, and plan of care as documented except for any differences below. Patient with significant improvement with diuresis though gas exchange limited in setting on influenza pneumonia. Infiltrates relatively unchanged. Dobutamine helpful but ay have lead to brief run of Vtach last night. Will work on tapering gtt off. Monitor markers of perfusion including mentation and UOP. She is requiring low dose levophed as expected and this will likely be able to be off shortly with vasodilation from B2 agonism discontinued. Patient repsonded well to bumex, monitor UOP specifically after dobutamine discontinued this afternoon. Patient tolerating HHHFNC well now. Will aim for use of Bipap overnight given heart failure exacerbation from infection. I dod not suspect septic shock at this time given overall presentation. Patient remains at significant risk for further morbidity and mortality. Renal function remains limited in improvement with Cr though UOP improved with diuresis, cardiorenal component cannot be excluded. Remians on empiric abx along with tamiflu. Recheck BNP in AM as surrogate for fludi status. VeExus equivocal yesterday. Total critical care time: I personally spent 40 minutes for review of physiologic parameters, directing plan of care, and counseling patient at bedside. This is exclusive of time spent teaching housestaff or performing any separate billable procedures. Patient continues to require critical services for cardiogenic shock and influenza pneumonia with acute hypoxic respiratory failure.
--- NOTE | 2024-08-04 17:21 | ECHO_ITS ---
Transthoracic Echo Report Ht (in): 62 Wt (lb): 113 Exam Location: Portable Status: Inpatient Women'S Studies Lecturer: SEGUNDO Craig^^^^ Indications: Procedure Performed: BP: 99 / 59 HR: 106 Technical Quality: Fair MEASUREMENTS (Male / Female) Normal Values 2D ECHO LV Diastolic Diameter PLAX 5.3 cm 4.2 - 5.9 / 3.9 - 5.3 cm LV Systolic Diameter PLAX 4.4 cm IVS Diastolic Thickness 1.0 cm 0.6 - 1.0 / 0.6 - 0.9 cm LVPW Diastolic Thickness 0.9 cm 0.6 - 1.0 / 0.6 - 0.9 cm LV Relative Wall Thickness 0.4 LVOT Diameter 1.6 cm Aortic Root Diameter 2.9 cm LA Systolic Diameter LX 4.5 cm 3.0 - 4.0 / 2.7 - 3.8 cm LV Ejection Fraction MOD BP 42.2 % >= 55 % LV Cardiac Index MOD BP 5130.9 cm?/min?m? LV Ejection Fraction MOD 4C 34.9 % LV Cardiac Index MOD 4C 5237.0 cm?/min?m? LV Ejection Fraction 4C AL 36.0 % LV Cardiac Index 4C AL 5625.8 cm?/min?m? LV Ejection Fraction MOD 2C 53.4 % LV Cardiac Index MOD 2C 5215.8 cm?/min?m? LV Ejection Fraction 2C AL 56.8 % LV Cardiac Index 2C AL 5739.6 cm?/min?m? LA Volume Index 65.6 cm?/m? 16 - 28 cm?/m? Ascending Aorta Diameter 2.4 cm DOPPLER AV Peak Velocity 129.0 cm/s AV Peak Gradient 6.7 mmHg AV Mean Gradient 5.0 mmHg AV Velocity Time Integral 24.2 cm AI Peak Velocity 226.0 cm/s AI Peak Gradient 20.4 mmHg AI Pressure Half Time 503.0 ms LVOT Peak Velocity 79.8 cm/s LVOT Peak Gradient 2.5 mmHg LVOT Velocity Time Integral 15.9 cm LVOT Cardiac Index 2262.4 cm?/min?m? AV Area Cont Eq vti 1.3 cm? AV Area Cont Eq pk 1.2 cm? MV Peak Velocity 153.0 cm/s MV Peak Gradient 9.4 mmHg MV Mean Velocity 96.9 cm/s MV Mean Gradient 4.0 mmHg MR Peak Velocity 557.0 cm/s MR Peak Gradient 124.1 mmHg MR ERO PISA 2.3 cm? MR Regurgitant Volume PISA 358.2 cm? LV E' Lateral Velocity 8.0 cm/s LV E' Septal Velocity 11.0 cm/s TR Peak Velocity 273.5 cm/s TR Peak Gradient 29.9 mmHg PV Peak Velocity 86.1 cm/s PV Peak Gradient 3.0 mmHg RVOT Peak Velocity 41.4 cm/s FINDINGS Left Ventricle Normal left ventricular size, wall thickness with inferior lateral and anterior apical hypokinesis Moderate to seveer LV dysfunction LVEF 35-40% There is grade III diastolic dysfunction of the left ventricle (restrictive filling pattern). Right Ventricle The right ventricle is normal in size and systolic function. The estimated right ventricular systolic pressure, 33 mmHg. Left Atrium Severely increased left atrial volume 65.6 mL/m?. Right Atrium The right atrial cavity size is mildly increased. Atrial Septum The interatrial septum appears normal with no evidence of a shunt. Aorta The aorta is normal by two-dimensional, color flow and Doppler interrogation. Mitral Valve [id number] mitral regurgitation. Mild mitral annular calcification. Moderate thickening of the mitral valve leaflets. Aortic Valve Trace to mild aortic valve regurgitation. Tricuspid Valve There is mild tricuspid valve regurgitation. Pulmonic Valve Trivial pulmonic valve regurgitation. Vessels The pulmonary artery appears normal. The inferior vena cava pulmonary and hepatic veins appear normal. Pericardium The pericardium is normal by two-dimensional imaging. There is no significant pericardial effusion. CONCLUSIONS indication: AHRF Ischemic cardiomyopathy with nferior laterl and apicla hypokinesis LVEF 35-40% RV appears normal with RVSP 33 mmHg. LA is severely dilated. RA is mildly dilated. Heavy MAC withn moderate-severe MRs. Mild TR Kayla Echevarria (Electronically Signed) Final Date: 04 August 2024 12:50
[2024-08-04] MEDS: AZITHROMYCIN INJ 500 MG in SODIUM CHLORIDE 0.9% 250 ML 250 ML 250 MG IV (17:42)
[2024-08-04] MEDS: Norepinephrine/D5W 8mg/250ml 8 MG/250 ML BAG 4.805 MG IV (18:51)
[2024-08-04] MEDS: INSULIN GLARGINE (Lantus) 5 UNIT/0.05 ML (PER 5 UNITS) SC (21:12)
[2024-08-04] MEDS: POLYETHYLENE GLYCOL 17 GM PACKET PO (21:12)
[2024-08-05] VITALS (118 sets, daily range): BP systolic 72–125; BP diastolic 35–80; PULSE 62–144; RESP 12–44; TEMP 36.4–36.9; O2SAT 82–100; BMI 21.0
[2024-08-05 04:01] LABS: Basophils % (Auto) 0 % (0-2.5); Eosinophils % (Auto) 0 % (0-10); Hematocrit 33.4 % (36.0-46.0); Hemoglobin 11.4 g/dL (12.0-16.0); Immature Granulocytes % (Auto) 1 % (0-0); Immature Granulocytes Auto 0.13 Thou/mm3 (0.00-0.00); Lymphocytes % (Auto) 6 % (10-50); Mean Corpuscular HGB Conc 34.1 g/dl (31.0-37.0); Mean Corpuscular Hemoglobin 31.5 pg (25.0-35.0); Mean Corpuscular Volume 92 fL (80-100); Monocytes # (Auto) 1.2 Thou/mm3 (0.0-0.8); Monocytes % (Auto) 7 % (0-12); Neutrophils # (Auto) 13.8 Thou/mm3 (1.8-7.7); Neutrophils % (Auto) 86 % (37-80); Nucleated Red Blood Cell # 0.03 Thou/mm3 (0.00-0.00); Nucleated Red Blood Cell % 0 /100 WBC (0); Platelet Count 319 Thou/mm3 (140-440); Red Blood Count 3.62 Miln/mm3 (4.00-5.20); White Blood Count 16.1 Thou/mm3 (3.6-11.0)
[2024-08-05 04:25] LABS: Alanine Aminotransferase 29 U/L (10-49); Albumin, Serum 3.7 gm/dL (3.4-4.8); Albumin/Globulin Ratio 1.2 (1.2-2.2); Alkaline Phosphatase 139 U/L (46-116); Anion Gap 11 (7-16); Aspartate Amino Transferase 45 U/L (0-34); BUN/Creatinine Ratio 29 Ratio (12-20); Bilirubin,Total 0.3 mg/dL (0.3-1.2); Blood Urea Nitrogen 58 mg/dL (9-23); Calcium 8.9 mg/dL (8.3-10.6); Calcium (Corrected) 9.1 mg/dL (8.5-10.1); Carbon Dioxide 19.3 mMol/L (20.0-31.0); Chloride 112 mMol/L (98-107); Estimated Creatinine Clearance 16.6 mL/min (>60); Glucose 132 mg/dL (74-106); Magnesium 2.4 mg/dL (1.6-2.6); Osmolality,Calculated 301 (275-295); Phosphorous 3.1 mg/dL (2.4-5.1); Potassium 4.9 mMol/L (3.4-5.1); Sodium 142 mMol/L (136-145); Total Protein 6.7 gm/dL (5.7-8.2); eGFR 25 See Note
[2024-08-05] MEDS: BUMETANIDE INJ 0.25 MG/ML VIAL 4 ML 1 MG IVP ×3 (05:16→17:53)
[2024-08-05] MEDS: ALBUTEROL/IPRATROPIUM (Duoneb) RT SOL 3 ML NEBU INH ×5 (06:34→22:23)
--- NOTE | 2024-08-05 06:47 | PC.NURSE ---
Dr Driver notified at 0215 of pt change in rhythm to possible a-fib rate 94 404 pt still in a-fib rate 134 Dr Driver also notified of pt low urine output no new orders received
[2024-08-05] MEDS: INSULIN LISPRO (AdmeLOG) 1 UNIT/0.01 ML UNIT SC ×3 (08:00→17:54)
[2024-08-05] MEDS: ASPIRIN EC 81 MG TABEC PO (08:38)
[2024-08-05] MEDS: HEPARIN SOD INJ 5000 UNIT/ML VIAL SC ×2 (08:38→21:31)
[2024-08-05] MEDS: PANTOPRAZOLE INJ 40 MG VIAL IV (08:38)
[2024-08-05] MEDS: POLYETHYLENE GLYCOL 17 GM PACKET PO (08:38)
[2024-08-05] MEDS: DOCUSATE SOD 100 MG CAPSULE PO (08:38)
[2024-08-05] MEDS: MUPIROCIN OINT 2% 15 GM TUBE TOP ×2 (08:38→21:57)
[2024-08-05] MEDS: OSELTAMIVIR 30 MG CAPSULE PO (08:39)
[2024-08-05] MEDS: NICOTINE PATCH 14 MG/24 HR PATCH.TD24 TOP (08:39)
--- NOTE | 2024-08-05 09:43 | XR_ITS ---
Examination: AP chest single view Technique: AP portable semiupright chest single view Exam date and time: August 05, 2024 1002 hrs. Comparison August 04, 2024 Indications: Difficulty breathing today. Findings: Mild to moderate enlargement cardiac contour Prominent vascular congestion Significant bilateral pneumonia and/or pulmonary edema Prominent osteopenia Impression: Extensive bilateral pneumonia and/or pulmonary edema, clinical correlation advised
[2024-08-05] MEDS: AMIODARONE 150 MG IVPB 150 MG/100 ML BAG 600 MG IV (10:32)
[2024-08-05] MEDS: AMIODARONE 360 MG IVPB 360 MG/200 ML BAG 33.333 MG IV (10:51)
--- NOTE | 2024-08-05 15:19 | PC.NURSE ---
MD Young made aware that patient has had no urine output for the past 2hrs. No new orders at this time
[2024-08-05] MEDS: ALBUTEROL RT 2.5 MG/0.5 ML NEBU 10 MG INH (16:32)
[2024-08-05] MEDS: SODIUM CHLORIDE RT SOL 0.9% 3 ML NEBU INH (16:33)
--- NOTE | 2024-08-05 17:09 | ESPR_ITS ---
Documentation for date of: 08/05/24 Subjective Subjective Interval history: Patient seen and examined at bedside. Overnight was said to have had a run of A-fib, lasted only for a couple seconds. At bedside today continues to be in A-fib, amiodarone protocol was started and patient received first 2 bags and converted to sinus rhythm. Total urine output yesterday, -542. Patient used BiPAP overnight. Repeat chest x-ray this morning does not show any significant improvement. Blood pressure soft today, with MAP under 65, Levophed was restarted. Will continue to monitor vital signs and if urine output does not improve, will consider restarting dobutamine. Urine culture returned positive for Klebsiella oxytoca, sensitive to ceftriaxone, will continue. Exam Vital Signs Temp Pulse Resp BP Pulse Ox O2 Del Method O2 Flow Rate 97.6 F 66 31 H 86/50 L 95 BiPAP 35 08/05/24 07:00 08/05/24 16:47 08/05/24 16:37 08/05/24 16:47 08/05/24 16:37 08/04/24 04:00 08/05/24 16:37 FiO2 75 08/05/24 16:37 Narrative Exam GENERAL: AAOX3 NEURO: [employer]RO[employer] grossly intact, moves extremities x4 HEENT: Dry mucosa. Eyes open, symmetrical, & clear CARDIO: No chest pain on palpation. Heart RRR, no obvious murmurs PULM: On high flow oxygen, crackles bilaterally, rhonchi. GI: Abdomen soft, nondistended, mildly tender epigastric region on palpation. 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 Dejesus catheter in situ SKIN/MSK/EXT: No wounds/rashes/edema/amputations, no pain on palpation. Pedal pulses present B/L Objective Labs 08/05/24 03:45 08/05/24 03:45 Labs: Laboratory Results - last 24 hr 08/05/24 03:45 WBC 16.1 H RBC 3.62 L Hgb 11.4 L Hct 33.4 L MCV 92 MCH 31.5 MCHC 34.1 RDW Std Deviation 52.0 H Plt Count 319 Neut % (Auto) 86 H Lymph % (Auto) 6 L [place] % (Auto) 7 Eos % (Auto) 0 Baso % (Auto) 0 Neut # (Auto) 13.8 H Lymph # (Auto) 1.0 [place] # (Auto) 1.2 H Eos # (Auto) 0.0 Baso # (Auto) 0.0 Immature Gran # (Auto) 0.13 H Absolute Nucleated RBC 0.03 H Immature Gran % 1 H Nucleated RBC % 0 Sodium 142 Potassium 4.9 Chloride 112 H Carbon Dioxide 19.3 L Anion Gap 11 BUN 58 H Creatinine 2.0 H Estim Creat Clear Calc 16.6 L eGFR 25 L BUN/Creatinine Ratio 29 H Glucose 132 H D Calculated Osmolality 301 H Calcium 8.9 Corrected Calcium 9.1 Phosphorus 3.1 Magnesium 2.4 Total Bilirubin 0.3 AST 45 H ALT 29 Alkaline Phosphatase 139 H D Total Protein 6.7 Albumin 3.7 Globulin 3.0 Albumin/Globulin Ratio 1.2 ABG Interpretation ABG results: 08/02/24 08/03/24 08/03/24 19:25 06:18 10:50 ABG pH 7.25 L 7.32 L ABG pCO2 40 28 L D ABG pO2 26 L* 78 L D ABG HCO3 18 L 14 L ABG O2 Saturation 34 L 96 ABG Base Excess -9 L -10 L VBG pH 7.29 L VBG pCO2 37 VBG pO2 37 VBG Base Excess -8 L 08/03/24 08/03/24 08/04/24 14:57 18:57 04:22 ABG pH 7.40 ABG pCO2 27 L ABG pO2 74 L ABG HCO3 17 L ABG O2 Saturation 96 ABG Base Excess -7 L VBG pH 7.32 L 7.34 VBG pCO2 33 L 30 L VBG pO2 56 60 H VBG Base Excess -8 L -9 L Quality Measures Quality Measures none Advance care planning discussed with:: child Assessment & Plan Assessment Current Active Medications: Generic Name Dose Route Start Last Admin Trade Name Freq PRN Reason Stop Dose Admin Acetaminophen 650 mg 08/02/24 17:40 Acetaminophen 325 Mg Tablet PO 09/01/24 17:39 Q6H PRN Fever >100.5 Acetaminophen 650 mg 08/02/24 17:40 Acetaminophen 325 Mg Tablet PO 09/01/24 17:39 Q6H PRN PAIN SCALE 1-3 (mild Albuterol/Ipratropium 3 ml 08/04/24 08:30 08/05/24 16:31 Albuterol/Ipratropium (Duoneb) Rt Nadine 3 Ml Nebu INH 09/03/24 08:29 Not Given Q4HRRT JUAN LUIS Aspirin 81 mg 08/03/24 09:00 08/05/24 08:38 Aspirin Ec 81 Mg Tabec PO 09/02/24 08:59 81 mg QDAY JUAN LUIS Administration Bumetanide 1 mg 08/05/24 06:00 08/05/24 05:16 Bumetanide Inj 0.25 Mg/Ml Vial 4 Ml IVP 09/04/24 05:59 1 mg BIDD JUAN LUIS Administration Dextrose 25 ml 08/02/24 18:03 Dextrose 50%-Water Inj 50 Ml Syringe IV 09/01/24 18:02 Q15MIN PRN BG 50-70 responsive npo pt Dextrose 50 ml 08/02/24 18:03 Dextrose 50%-Water Inj 50 Ml Syringe IV 09/01/24 18:02 Q15MIN PRN BG <50 OR BG <70 & pt unresponsive Dextrose 25 ml 08/03/24 10:03 Dextrose 50%-Water Inj 50 Ml Syringe IV [id number] PRN Blood Sugar - Low Docusate Sodium 100 mg 08/03/24 09:00 08/05/24 08:38 Docusate Sod 100 Mg Capsule PO 09/02/24 08:59 100 mg QDAY JUAN LUIS Administration Protocol Glucagon 1 mg 08/03/24 20:29 Glucagon Inj 1 Mg Vial IM Q15MIN PRN BG <70, and no IV access Heparin Sodium (Porcine) 5,000 unit 08/03/24 21:00 03 08:38 Heparin Sod Inj 5000 Unit/Ml Vial SC 08/17/24 20:59 5,000 unit Q12HR JUAN LUIS Administration Norepinephrine/Dextrose 8 mg in 250 mls @ 4.805 mls/hr 08/02/24 22:09 08/05/24 17:00 Levophed In D5w 8mg/250ml IV 09/01/24 22:08 0.13 mcg/kg/min .Q24H PRN 12.494 mls/hr PER PROTOCOL Titration Protocol 0.05 MCG/KG/MIN Potassium Chloride 10 meq in 100 mls @ 100 mls/hr 08/03/24 10:03 Kcl Ivpb IV 09/02/24 10:02 .Q1H PRN IF POTASSIUM LESS THAN 3.3 Magnesium Sulfate 2 gm in 50 mls @ 25 mls/hr 08/03/24 10:03 Magnesium Sulfate Ivpb IV 09/02/24 10:02 .Q2H PRN PER DKA PROTOCOL Potassium Chloride 10 meq in 100 mls @ 50 mls/hr 08/03/24 10:03 Kcl Ivpb IV 09/02/24 10:02 PRN PRN K LEVEL 3.3 to 5.3 & BG > 200 Potassium Phosphate 15 mmol in 250 mls @ 62.5 mls/hr 08/03/24 10:03 Pot Phos 15 Mmol In Ns 250 Ml IV 09/02/24 10:02 PRN PRN Phosphate <= 1mg/dL Sodium Phosphate 15 mmol/ 255 mls @ 62.5 mls/hr 08/03/24 10:03 Sodium Chloride IV 09/02/24 10:02 .Q4H5M PRN Phosphate <= 1mg/dL and K> than 5.3 Dobutamine HCl/Dextrose 500 mg in 250 mls @ 3.066 mls/hr 08/04/24 10:51 Dobutrex/D5w Ivpb IV 09/02/24 09:32 .Q24H PRN PER PROTOCOL Protocol 2 MCG/KG/MIN Insulin Glargine 5 unit 08/03/24 21:00 08/04/24 21:12 Insulin Glargine (Lantus) 5 Unit/0.05 Ml (Per 5 Units) AR 09/02/24 20:59 5 unit HS [facility] [place] Administration Insulin Human Lispro 0 unit 08/05/24 07:30 08/05/24 12:42 Insulin Lispro (Admelog) 1 Unit/0.01 Ml Unit AR 09/04/24 07:29 4 unit AC [facility] [place] Administration Protocol Insulin Human Lispro 2 unit 08/05/24 17:30 Insulin Lispro (Admelog) 1 Unit/0.01 Ml Unit AR 09/04/24 17:29 TIDWM [facility] [place] Mupirocin 0 gm 08/05/24 09:00 08/05/24 15:10 Mupirocin Oint 2% 15 Gm Tube TOP 08/12/24 08:59 Not Given TID [facility] [place] Nicotine 14 mg 08/03/24 09:00 08/05/24 08:39 Nicotine Patch 14 Mg/24 Hr Patch.Td24 TOP 09/02/24 08:59 14 mg QDAY JUAN LUIS Administration Ondansetron HCl 4 mg 08/02/24 17:40 Ondansetron Inj 2 Mg/Ml Inj 2 Ml IV 09/01/24 17:39 Q6H PRN NAUSEA OR VOMITING Protocol Oseltamivir Phosphate 30 mg 08/03/24 09:00 08/05/24 08:39 Oseltamivir 30 Mg Capsule PO 08/09/24 09:01 30 mg QDAY JUAN LUIS Administration Pantoprazole Sodium 40 mg 08/03/24 17:00 08/05/24 08:38 Pantoprazole Inj 40 Mg Vial IV 09/02/24 16:59 40 mg QDAY JUAN LUIS Administration Polyethylene Glycol 17 gm 08/04/24 21:00 08/05/24 08:38 Polyethylene Glycol 17 Gm Packet PO 09/03/24 20:59 17 gm QDAY JUAN LUIS Administration Sodium Bicarbonate 50 ml 08/03/24 10:03 Sodium Bicarb Inj 8.4% Syr 50 Ml Syringe IV 09/02/24 10:02 PRN PRN For ph <= to 7.0 Sodium Chloride 3 ml 08/04/24 08:32 08/05/24 16:33 Sodium Chloride Rt Nadien 0.9% 3 Ml Nebu INH 09/03/24 08:31 3 ml PRN PRN Administration SOLN Plan Summary: The patient is an 79-year-old female with a past medical history of hypertension, hyperlipidemia, hypothyroidism and HFrEF being followed by esl instructor Dr. Vasquez who presented to the ED with shortness of breath. Neuro Awake, alert and oriented No active conditions Cardiovascular #History of HFrEF #Cardiogenic shock #Hypotension Initial admitting labs showed a BNP of >3280 with crackles bilaterally. The patient has a history of HFrEF and has been on Entresto. Blood pressure on admission consistently soft, patient IV fluids could not be given based on concern for fluid overload. Patient was started on IV 2 mg Admitted to ICU for pressor support. Bedside ultrasound done, IVC noncompressible 08/05/2024: Patient received 2 mg of IV Bumex yesterday, total urine output overnight was about -532. Patient still has shortness of breath, chest x-ray done this morning did not show any significant improvement. Blood pressure dropped today with MAP under 65, Levophed restarted, patient is yet to make urine today well possibly consider restarting dobutamine. An additional dose of Bumex was also given. Echocardiogram was done which showed ejection fraction of 35 to 40%. Plan: -Continue Bumex 1mg twice daily from tomorrow -Continue Levophed, monitor blood pressure -Consider restarting dobutamine if urine output does not improve -Fluid restriction 1200 cc #Elevated troponin levels On admission, troponins elevated. Now downtrending. Possible type II demand ischemia Resp #Acute hypoxic respiratory failure #Influenza #Bilateral pneumonia The patient presented with shortness of breath. In the ED, influenza test was done which was negative. Chest x-ray showed bilateral pneumonia. MRSA nares positive 08/05/2024: Completed azithromycin, will DC Plan: -Continue ceftriaxone -DC azithromycin -Continue Tamiflu to complete 7-day course -Mupirocin -BIPAP HS GI #History of gastritis The patient probably has a history of gastritis and complains of some tenderness to epigastric region and reflux occasionally. Plan: -IV Protonix Renal #Acute kidney injury #Prerenal versus cardiorenal BUN and creatinine elevated on admission. Today, creatinine is at 2.2. Although the patient has had decreased p.o. intake, this could also possibly be cardiorenal. Creatinine still at 2.1 08/17/2024: Creatinine at 2.0 today, may need -500 mL of urine yesterday.. Plan: -Continue IV Bumex -Renally dose medications -Avoid nephrotoxic meds #Anion gap metabolic acidosis #Lactic acidosis-resolved #DKA versus starvation ketosis On admission, lactic acid was elevated at 3.0. Initial glucose not significantly elevated. pH this morning still 7.32 with bicarb of 14. Lactic acidosis resolved DKA protocol initiated, anion gap closed and transition. Plan: -Continue to monitor per protocol Endo #History of type II DM The patient has a history of type II DM and is on Farxiga and glimepiride. Blood glucose on admission, 254 BHB was checked which was 2.1, patient's had DKA protocol initiated. A1c-6.8. Anion gap closed Blood glucose in the morning normal but during the day elevated. Will add prandial control Plan: -SC Lantus 5 units -Insulin lispro 2 units 3 times daily with meals -ISS -Hypoglycemic protocols in place Infectious #Influenza A #Bilateral pneumonia On admission, bedside influenza A test was positive. Chest x-ray showed bilateral pneumonia. Patient was started on IV antibiotics-ceftriaxone and azithromycin as well as Tamiflu. Plan: -Continue ceftriaxone -DC azithromycin -Continue Tamiflu -Pending cultures Health maintenance: Dispo: ICU for acute hypoxic respiratory failure and cardiogenic shock, requiring pressor support. Diet: Carb consistent low, dysphagia-mechanical altered GI: Pantoprazole DVT: SC heparin Dejesus: None Lines: Peripheral Med Rec: Pending, f/u PT: Not ordered Code: DNR Case was discussed with attending physician, Dr Annabel Sidhu MD PGY-1 Disclaimer: This note was dictated by speech recognition. Minor errors in yard jockey may be present due to voice recognition software. Attending Provider Attestation/Addendum Patient seen and examined with the above resident, Claudette Sidhu MD. I agree with the findings, assessment, and plan of care as documented. Patient weaned off pressors and dobutamine in the last 24 hours. UOP dropped this AM significantly with poor response to diuretic regimen. Favor resumption of vasopressors for cardiogenic shock/ support. Amiodarone initiated for atrial fibrillation with RVR, rhythm control strategy and known duration of arrythmia <48 hours, minimizing risk of KIRBY clot formation. Patient with influenza as trigger. Chest film unchanged. BNP unchanged at this time. Will continue on empiric antibiotics. Support with Bipap nighty and remains on HHHFNC at stable settings during the day. Patient remains critically ill and at high risk for further deterioration warranting ongoing care and monitoring only available in the intensive care setting. Total critical care time: I personally spent 35 minutes for review of physiologic parameters, directing plan of care throughout the day, and counseling patient/ family at the bedside. This is exclusive of time spent teaching housestaff or performing any separate billable procedure. Patient continues to require critical care services for cardiogenic shock and acute hypoxic respiratory failure due to influenza pneumonia and decompensated CHF.
[2024-08-05] MEDS: INSULIN LISPRO (AdmeLOG) 1 UNIT/0.01 ML UNIT 2 UNIT SC (17:54)
[2024-08-05] MEDS: DOBUTamine/D5w 500 MG IVPB 500 MG/250 ML BAG IV (21:30)
[2024-08-05] MEDS: INSULIN GLARGINE (Lantus) 5 UNIT/0.05 ML (PER 5 UNITS) SC (21:55)
[2024-08-06] VITALS (101 sets, daily range): BP systolic 66–125; BP diastolic 30–94; PULSE 82–106; RESP 12–39; TEMP 36–37.1; O2SAT 89–100; BMI 21.0
[2024-08-06] MEDS: ALBUTEROL/IPRATROPIUM (Duoneb) RT SOL 3 ML NEBU INH ×6 (03:24→22:49)
[2024-08-06] MEDS: Norepinephrine/D5W 8mg/250ml 8 MG/250 ML BAG 12.494 MG IV (04:44)
[2024-08-06 05:06] LABS: Base Excess -9 (-3-3); HCO3 17 mEq/L (20-26); Inspired Oxygen, FIO2 60 %; O2 Saturation 80 % (91-98); PCO2 37 mmHg (32.0-48.0); pH, Arterial 7.28 (7.35-7.45)
[2024-08-06 05:12] LABS: Allen Test Performed/OK; PO2 49 mmHg (83-108); Puncture Site Left Radial
--- NOTE | 2024-08-06 06:00 | XR_ITS ---
Examination: AP chest single view Technique: AP portable semiupright chest single view Exam date and time: August 06, 2024 0416 hrs. Comparison August 05, 2024 Indications: Hypoxia this week. Findings: Extensive bilateral pneumonia ARDS Mild associated heart failure with mild cardiomegaly and prominent central vascular congestion Prominent osteopenia Impression: Again noted extensive bilateral pneumonia ARDS pattern
[2024-08-06 06:05] LABS: Basophils % (Auto) 0 % (0-2.5); Eosinophils % (Auto) 0 % (0-10); Hematocrit 38.3 % (36.0-46.0); Hemoglobin 12.9 g/dL (12.0-16.0); Immature Granulocytes % (Auto) 1 % (0-0); Immature Granulocytes Auto 0.12 Thou/mm3 (0.00-0.00); Lymphocytes # (Auto) 0.9 Thou/mm3 (1.0-4.8); Lymphocytes % (Auto) 5 % (10-50); Mean Corpuscular HGB Conc 33.7 g/dl (31.0-37.0); Mean Corpuscular Hemoglobin 31.2 pg (25.0-35.0); Mean Corpuscular Volume 93 fL (80-100); Monocytes # (Auto) 1.1 Thou/mm3 (0.0-0.8); Monocytes % (Auto) 6 % (0-12); Neutrophils # (Auto) 16.6 Thou/mm3 (1.8-7.7); Neutrophils % (Auto) 89 % (37-80); Nucleated Red Blood Cell # 0.03 Thou/mm3 (0.00-0.00); Nucleated Red Blood Cell % 0 /100 WBC (0); Platelet Count 228 Thou/mm3 (140-440); Red Blood Count 4.14 Miln/mm3 (4.00-5.20); White Blood Count 18.7 Thou/mm3 (3.6-11.0)
[2024-08-06] MEDS: BUMETANIDE INJ 0.25 MG/ML VIAL 4 ML 1 MG IVP ×2 (06:23→17:46)
[2024-08-06] MEDS: MUPIROCIN OINT 2% 15 GM TUBE TOP ×3 (06:26→21:00)
[2024-08-06 06:40] LABS: Alanine Aminotransferase 36 U/L (10-49); Albumin, Serum 3.7 gm/dL (3.4-4.8); Albumin/Globulin Ratio 1.2 (1.2-2.2); Alkaline Phosphatase 164 U/L (46-116); Anion Gap 14 (7-16); Aspartate Amino Transferase 49 U/L (0-34); BUN/Creatinine Ratio 29 Ratio (12-20); Bilirubin,Total 0.3 mg/dL (0.3-1.2); Blood Urea Nitrogen 76 mg/dL (9-23); Calcium 8.9 mg/dL (8.3-10.6); Calcium (Corrected) 9.1 mg/dL (8.5-10.1); Carbon Dioxide 15.3 mMol/L (20.0-31.0); Chloride 110 mMol/L (98-107); Creatinine (Component) 2.6 mg/dL (0.6-1.3); Estimated Creatinine Clearance 12.8 mL/min (>60); Globulin 3.1 gm/dL (2.3-3.5); Glucose 153 mg/dL (74-106); Magnesium 2.5 mg/dL (1.6-2.6); Osmolality,Calculated 303 (275-295); Phosphorous 4.6 mg/dL (2.4-5.1); Sodium 139 mMol/L (136-145); Total Protein 6.8 gm/dL (5.7-8.2); eGFR 18 See Note
[2024-08-06] MEDS: ASPIRIN EC 81 MG TABEC PO (08:14)
[2024-08-06] MEDS: OSELTAMIVIR 30 MG CAPSULE PO (08:14)
[2024-08-06] MEDS: PANTOPRAZOLE INJ 40 MG VIAL IV (08:14)
[2024-08-06] MEDS: NICOTINE PATCH 14 MG/24 HR PATCH.TD24 TOP (08:15)
[2024-08-06] MEDS: INSULIN LISPRO (AdmeLOG) 1 UNIT/0.01 ML UNIT SC ×3 (08:15→17:46)
[2024-08-06] MEDS: HEPARIN SOD INJ 5000 UNIT/ML VIAL SC ×2 (08:15→21:23)
[2024-08-06] MEDS: INSULIN LISPRO (AdmeLOG) 1 UNIT/0.01 ML UNIT 2 UNIT SC ×3 (08:16→17:47)
[2024-08-06] MEDS: LINEZOLID 600 MG TABLET PO ×2 (09:44→21:23)
[2024-08-06 11:12] LABS: Procalcitonin 1.93 ng/ml (0.0-0.49)
--- NOTE | 2024-08-06 14:14 | ESPR_ITS ---
Documentation for date of: 08/06/24 Subjective Subjective Interval history: Patient seen and examined at bedside. No acute overnight events. Apparently, patient declined to use BiPAP last night and was on high flow only. Chest x-ray was repeated this morning, slightly improved in the right lung. Total urine output yesterday, about -400 cc. She had received an additional dose of Bumex yesterday. She had 3 bowel movements and bowel regimen was held. Dobutamine was restarted to optimize inotropic effect and cardiac output due to the heart failure with reduced ejection fraction. WBC uptrending, at 18.7 today, repeated lactate which was normal but elevation in procalcitonin. Added linezolid to ceftriaxone to cover for MRSA. Will continue Tamiflu, diuresis today (again, aim for net even) as well as dobutamine and Levophed. 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 Eyes open, symmetrical, & clear CARDIO: No chest pain on palpation. Heart RRR, no obvious murmurs PULM: On high flow oxygen, crackles bilaterally, rhonchi. GI: Abdomen soft, nondistended, mildly tender epigastric region on palpation. BSx4 URO/POWDER HAND:: No further abnormalities noted. Dejesus catheter in situ SKIN/MSK/EXT: No wounds/rashes/edema/amputations, no pain on palpation. Pedal pulses present B/L Objective Labs 08/06/24 04:55 08/06/24 04:55 Labs: Laboratory Results - last 24 hr 08/06/24 08/06/24 08/06/24 04:44 04:55 10:21 WBC 18.7 H RBC 4.14 Hgb 12.9 Hct 38.3 MCV 93 MCH 31.2 MCHC 33.7 RDW Std Deviation 52.0 H Plt Count 228 D Neut % (Auto) 89 H Lymph % (Auto) 5 L Rolette % (Auto) 6 Eos % (Auto) 0 Baso % (Auto) 0 Neut # (Auto) 16.6 H Lymph # (Auto) 0.9 L [place] # (Auto) 1.1 H Eos # (Auto) 0.0 Baso # (Auto) 0.0 Immature Gran # (Auto) 0.12 H Absolute Nucleated RBC 0.03 H Immature Gran % 1 H Nucleated RBC % 0 Puncture Site Left Radial ABG pH 7.28 L D ABG pCO2 37 D ABG pO2 49 L* D ABG HCO3 17 L ABG O2 Saturation 80 L ABG Base Excess -9 L FiO2 60 Sodium 139 Potassium 5.0 Chloride 110 H Carbon Dioxide 15.3 L Anion Gap 14 BUN 76 H Creatinine 2.6 H D Estim Creat Clear Calc 12.8 L eGFR 18 L BUN/Creatinine Ratio 29 H Glucose 153 H Calculated Osmolality 303 H Lactic Acid 2.0 Calcium 8.9 Corrected Calcium 9.1 Phosphorus 4.6 Magnesium 2.5 Total Bilirubin 0.3 AST 49 H ALT 36 Alkaline Phosphatase 164 H D Total Protein 6.8 Albumin 3.7 Globulin 3.1 Albumin/Globulin Ratio 1.2 Procalcitonin 1.93 H ABG Interpretation ABG results: 08/02/24 08/03/24 08/03/24 19:25 06:18 10:50 ABG pH 7.25 L 7.32 L ABG pCO2 40 28 L D ABG pO2 26 L* 78 L D ABG HCO3 18 L 14 L ABG O2 Saturation 34 L 96 ABG Base Excess -9 L -10 L VBG pH 7.29 L VBG pCO2 37 VBG pO2 37 VBG Base Excess -8 L 08/03/24 08/03/24 08/04/24 14:57 18:57 04:22 ABG pH 7.40 ABG pCO2 27 L ABG pO2 74 L ABG HCO3 17 L ABG O2 Saturation 96 ABG Base Excess -7 L VBG pH 7.32 L 7.34 VBG pCO2 33 L 30 L VBG pO2 56 60 H VBG Base Excess -8 L -9 L 08/06/24 04:44 ABG pH 7.28 L D ABG pCO2 37 D ABG pO2 49 L* D ABG HCO3 17 L ABG O2 Saturation 80 L ABG Base Excess -9 L VBG pH VBG pCO2 VBG pO2 VBG Base Excess Quality Measures Quality Measures none Advance care planning discussed with:: child Assessment & Plan Assessment Current Active Medications: Generic Name Dose Route Start Last Admin Trade Name Ericka PRN Reason Stop Dose Admin Acetaminophen 650 mg 08/02/24 17:40 Acetaminophen 325 Mg Tablet PO 09/01/24 17:39 Q6H PRN Fever >100.5 Acetaminophen 650 mg 08/02/24 17:40 Acetaminophen 325 Mg Tablet PO 09/01/24 17:39 Q6H PRN PAIN SCALE 1-3 (mild Albuterol/Ipratropium 3 ml 08/04/24 08:30 08/06/24 10:00 Albuterol/Ipratropium (Duoneb) Rt Nadine 3 Ml Nebu INH 09/03/24 08:29 3 ml Q4HRRT JUAN LUIS Administration Aspirin 81 mg 08/03/24 09:00 08/06/24 08:14 Aspirin Ec 81 Mg Tabec PO 09/02/24 08:59 81 mg QDAY JUAN LUIS Administration Bumetanide 1 mg 08/05/24 06:00 08/06/24 06:23 Bumetanide Inj 0.25 Mg/Ml Vial 4 Ml IVP 09/04/24 05:59 1 mg BIDD JUAN LUIS Administration Dextrose 25 ml 08/02/24 18:03 Dextrose 50%-Water Inj 50 Ml Syringe IV 09/01/24 18:02 Q15MIN PRN BG 50-70 responsive npo pt Dextrose 50 ml 08/02/24 18:03 Dextrose 50%-Water Inj 50 Ml Syringe IV 09/01/24 18:02 Q15MIN PRN BG <50 OR BG <70 & pt unresponsive Dextrose 25 ml 08/03/24 10:03 Dextrose 50%-Water Inj 50 Ml Syringe IV [id number] PRN Blood Sugar - Low Docusate Sodium 100 mg 08/03/24 09:00 08/06/24 08:15 Docusate Sod 100 Mg Capsule PO 09/02/24 08:59 Not Given QDAY [facility] Protocol Glucagon 1 mg 08/03/24 20:29 Glucagon Inj 1 Mg Vial IM Q15MIN PRN BG <70, and no IV access Heparin Sodium (Porcine) 5,000 unit 08/03/24 21:00 08/06/24 08:15 Heparin Sod Inj 5000 Unit/Ml Vial SC 08/17/24 20:59 5,000 unit Q12HR JUAN LUIS Administration Norepinephrine/Dextrose 8 mg in 250 mls @ 4.805 mls/hr 08/02/24 22:09 08/06/24 14:00 Levophed In D5w 8mg/250ml IV 09/01/24 22:08 0.15 mcg/kg/min .Q24H PRN 14.416 mls/hr PER PROTOCOL Titration Protocol 0.05 MCG/KG/MIN Potassium Chloride 10 meq in 100 mls @ 100 mls/hr 08/03/24 10:03 Kcl Ivpb IV 09/02/24 10:02 .Q1H PRN IF POTASSIUM LESS THAN 3.3 Magnesium Sulfate 2 gm in 50 mls @ 25 mls/hr 08/03/24 10:03 Magnesium Sulfate Ivpb IV 09/02/24 10:02 .Q2H PRN PER DKA PROTOCOL Potassium Chloride 10 meq in 100 mls @ 50 mls/hr 08/03/24 10:03 Kcl Ivpb IV 09/02/24 10:02 PRN PRN K LEVEL 3.3 to 5.3 & BG > 200 Potassium Phosphate 15 mmol in 250 mls @ 62.5 mls/hr 08/03/24 10:03 Pot Phos 15 Mmol In Ns 250 Ml IV 09/02/24 10:02 PRN PRN Phosphate <= 1mg/dL Sodium Phosphate 15 mmol/ 255 mls @ 62.5 mls/hr 08/03/24 10:03 Sodium Chloride IV 09/02/24 10:02 .Q4H5M PRN Phosphate <= 1mg/dL and K> than 5.3 Dobutamine HCl/Dextrose 500 mg in 250 mls @ 3.066 mls/hr 08/04/24 10:51 08/06/24 14:00 Dobutrex/D5w Ivpb IV 09/02/24 09:32 2 mcg/kg/min .Q24H PRN 3.066 mls/hr PER PROTOCOL Titration Protocol 2 MCG/KG/MIN Insulin Glargine 5 unit 08/03/24 21:00 08/05/24 21:55 Insulin Glargine (Lantus) 5 Unit/0.05 Ml (Per 5 Units) SC 09/02/24 20:59 5 unit HS JUAN LUIS Administration Insulin Human Lispro 0 unit 08/05/24 07:30 08/06/24 11:30 Insulin Lispro (Admelog) 1 Unit/0.01 Ml Unit SC 09/04/24 07:29 1 unit AC JUAN LUIS Administration Protocol Insulin Human Lispro 2 unit 08/05/24 17:30 08/06/24 11:31 Insulin Lispro (Admelog) 1 Unit/0.01 Ml Unit SC 09/04/24 17:29 2 unit TIDWM JUAN LUIS Administration Linezolid 600 mg 08/06/24 09:00 08/06/24 09:44 Linezolid 600 Mg Tablet PO 08/13/24 08:59 600 mg BID JUAN LUIS Administration Mupirocin 0 gm 08/05/24 09:00 08/06/24 13:54 Mupirocin Oint 2% 15 Gm Tube TOP 08/12/24 08:59 1 applicatio TID JUAN LUIS Administration Nicotine 14 mg 08/03/24 09:00 08/06/24 08:15 Nicotine Patch 14 Mg/24 Hr Patch.Td24 TOP 09/02/24 08:59 14 mg QDAY JUAN LUIS Administration Ondansetron HCl 4 mg 08/02/24 17:40 Ondansetron Inj 2 Mg/Ml Inj 2 Ml IV 09/01/24 17:39 Q6H PRN NAUSEA OR VOMITING Protocol Oseltamivir Phosphate 30 mg 08/03/24 09:00 08/06/24 08:14 Oseltamivir 30 Mg Capsule PO 08/09/24 09:01 30 mg QDAY JUAN LUIS Administration Pantoprazole Sodium 40 mg 08/03/24 17:00 08/06/24 08:14 Pantoprazole Inj 40 Mg Vial IV 09/02/24 16:59 40 mg QDAY JUAN LUIS Administration Polyethylene Glycol 17 gm 08/04/24 21:00 08/05/24 08:38 Polyethylene Glycol 17 Gm Packet PO 09/03/24 20:59 17 gm QDAY JUAN LUIS Administration Sodium Bicarbonate 50 ml 08/03/24 10:03 Sodium Bicarb Inj 8.4% Syr 50 Ml Syringe IV 09/02/24 10:02 PRN PRN For ph <= to 7.0 Sodium Chloride 3 ml 08/04/24 08:32 08/05/24 16:33 Sodium Chloride Rt Nadine 0.9% 3 Ml Nebu INH 09/03/24 08:31 3 ml PRN PRN Administration SOLN Plan Summary: The patient is an 79-year-old female with a past medical history of hypertension, hyperlipidemia, hypothyroidism and HFrEF 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 Neuro Awake, alert and oriented No active conditions Cardiovascular #History of HFrEF #Cardiogenic shock #Hypotension Initial admitting labs showed a BNP of >3280 with crackles bilaterally. The patient has a history of HFrEF and has been on Entresto. Blood pressure on admission consistently soft, patient IV fluids could not be given based on concern for fluid overload. Patient was started on IV 2 mg Admitted to ICU for pressor support. Bedside ultrasound done, IVC noncompressible 08/05/2024: Patient received 2 mg of IV Bumex yesterday, total urine output overnight was about -532. Patient still has shortness of breath, chest x-ray done this morning did not show any significant improvement. Blood pressure dropped today with MAP under 65, Levophed restarted, patient is yet to make urine today well possibly consider restarting dobutamine. An additional dose of Bumex was also given. Echocardiogram was done which showed ejection fraction of 35 to 40%. 08/06/2024: Total urine output yesterday, about -400 cc. She had received an additional dose of Bumex yesterday. She had 3 bowel movements and bowel regimen was held. Dobutamine was restarted to optimize inotropic effect and cardiac output due to the heart failure with reduced ejection fraction. Plan: -Continue Bumex 1mg twice daily -Continue Levophed, monitor blood pressure -Continue dobutamine for ow to optimize cardiac output -Fluid restriction 1200 cc #Elevated troponin levels On admission, troponins elevated. Now downtrending. Possible type II demand ischemia Resp #Acute hypoxic respiratory failure #Influenza #Bilateral pneumonia The patient presented with shortness of breath. In the ED, influenza test was done which was negative. Chest x-ray showed bilateral pneumonia. MRSA nares positive 08/06/2024- Chest x-ray was repeated this morning, slightly improved in the right lung. WBC uptrending, at 18.7 today, repeated lactate which was normal but elevation in procalcitonin. Added linezolid to ceftriaxone to cover for MRSA. Will continue Tamiflu. Plan: -Commence Linezolid 600mg BID -Continue ceftriaxone -Continue Tamiflu to complete 7-day course -Mupirocin -BIPAP HS GI #History of gastritis The patient probably has a history of gastritis and complains of some tenderness to epigastric region and reflux occasionally. Plan: -IV Protonix Renal #Acute kidney injury #Prerenal versus cardiorenal BUN and creatinine elevated on admission. Today, creatinine is at 2.2. Although the patient has had decreased p.o. intake, this could also possibly be cardiorenal. Creatinine still at 2.1 08/06/2024: Creatinine at 2.6 today, Urine output in negtaive balance yesterday Plan: -Continue IV Bumex -Renally dose medications -Avoid nephrotoxic meds #Anion gap metabolic acidosis #Lactic acidosis-resolved #DKA versus starvation ketosis On admission, lactic acid was elevated at 3.0. Initial glucose not significantly elevated. pH this morning still 7.32 with bicarb of 14. Lactic acidosis resolved DKA protocol initiated, anion gap closed and transition. Endo #History of type II DM The patient has a history of type II DM and is on Farxiga and glimepiride. Blood glucose on admission, 254 BHB was checked which was 2.1, patient's had DKA protocol initiated. A1c-6.8. Anion gap closed Blood glucose in the morning normal but during the day elevated. Will add prandial control Plan: -SC Lantus 5 units -Insulin lispro 2 units 3 times daily with meals -ISS -Hypoglycemic protocols in place Infectious #Influenza A #Bilateral pneumonia On admission, bedside influenza A test was positive. Chest x-ray showed bilateral pneumonia. Patient was started on IV antibiotics-ceftriaxone and azithromycin as well as Tamiflu. Plan: -Continue ceftriaxone -DC azithromycin -Continue Tamiflu -Pending cultures Health maintenance: Dispo: ICU for acute hypoxic respiratory failure and cardiogenic shock, requiring pressor support. Diet: Carb consistent low, dysphagia-mechanical altered GI: Pantoprazole DVT: SC heparin Dejesus: None Lines: Peripheral Med Rec: Pending, f/u PT: Not ordered Code: DNR Case was discussed with attending physician, Dr Annabel Sidhu MD PGY-1 Disclaimer: This note was dictated by speech recognition. Minor errors in monogram and letter paster may be present due to voice recognition software. Attending Provider Attestation/Addendum Patient seen and examined with the above resident, Claudette Sidhu MD. I agree with the findings, assessment, and plan of care as documented. Patient with significant improvement clinically. More alert and interactive with resumption of inotropic supoprt. Pressors used to overcome B2 agonism of dobutamine. Lactate remains <2. Patient with good UOP. Clinically euvolemic at this time. Continue on HHHFNC. Hypoxic respiratory failure due to influenza and patient on tamiflu with empiric antibiotics continued for superimposed bacterial infection. 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 WBC continues to rise suggesting we may be missing some organism with our current regimen. Patient without fever and chest film improved, though this is likley reflection of fluid status being optimized. Diuretics as needed to keep net even, slightly negative. Patient and family updated on plan of care at the bedside. No plan to wean support at this point. I reiterated need to wear Bipap at least overnight for support for cardiogenic shock/ respiratory failure. She will reattempt tonight. Total critical care time: I personally spent 35 minutes for review of physiologic parameters, directing plan of care, and counseling patient and family at the bedside. This is exclusive of time spent teaching housestaff or performing any separate billable procedures. Patient continues to require critical care services for acute hypoxic respiratory failure 2/2 cardiogenic shock and influenza A pneumonia. Patient remains at risk for further morbidity and mortality warranting ongoing monitoring and care only available in the intensive care setting.
--- NOTE | 2024-08-06 15:20 | EKG_ITS ---
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
[2024-08-06] MEDS: INSULIN GLARGINE (Lantus) 5 UNIT/0.05 ML (PER 5 UNITS) SC (21:23)
[2024-08-06] MEDS: Norepinephrine/D5W 8mg/250ml 8 MG/250 ML BAG 10.572 MG IV (23:00)
[2024-08-07] VITALS (106 sets, daily range): BP systolic 80–125; BP diastolic 44–71; PULSE 86–108; RESP 12–38; TEMP 36.4–36.7; O2SAT 86–99
[2024-08-07] MEDS: ALBUTEROL/IPRATROPIUM (Duoneb) RT SOL 3 ML NEBU INH ×6 (02:58→22:33)
--- NOTE | 2024-08-07 06:00 | XR_ITS ---
Examination: AP chest single view Technique one AP portable semiupright chest single view Exam date and time: August 07, 2024 0443 hrs. Comparison August 16, 2024 Indications: Acute hypoxic respiratory failure Findings: Extensive bilateral pneumonia and/or pulmonary edema Lobe retrocardiac contour with central pulmonary vascular congestion Significant osteopenia Impression: Heart failure with prominent vascular congestion Extensive pneumonia and/or pulmonary edema bilaterally
[2024-08-07] MEDS: BUMETANIDE INJ 0.25 MG/ML VIAL 4 ML 1 MG IVP (06:01)
[2024-08-07] MEDS: MUPIROCIN OINT 2% 15 GM TUBE TOP ×3 (06:02→20:11)
[2024-08-07 06:14] LABS: Basophils % (Auto) 0 % (0-2.5); Eosinophils % (Auto) 0 % (0-10); Hematocrit 34.9 % (36.0-46.0); Immature Granulocytes % (Auto) 1 % (0-0); Immature Granulocytes Auto 0.13 Thou/mm3 (0.00-0.00); Lymphocytes # (Auto) 0.6 Thou/mm3 (1.0-4.8); Lymphocytes % (Auto) 3 % (10-50); Mean Corpuscular HGB Conc 34.4 g/dl (31.0-37.0); Mean Corpuscular Hemoglobin 31.3 pg (25.0-35.0); Mean Corpuscular Volume 91 fL (80-100); Monocytes # (Auto) 0.8 Thou/mm3 (0.0-0.8); Monocytes % (Auto) 4 % (0-12); Neutrophils # (Auto) 20.2 Thou/mm3 (1.8-7.7); Neutrophils % (Auto) 93 % (37-80); Nucleated Red Blood Cell % 0 /100 WBC (0); Platelet Count 240 Thou/mm3 (140-440); RDW Standard Deviation 50.8 fL (36.4-46.3); Red Blood Count 3.84 Miln/mm3 (4.00-5.20); White Blood Count 21.7 Thou/mm3 (3.6-11.0)
[2024-08-07 06:29] LABS: Alanine Aminotransferase 18 U/L (10-49); Albumin, Serum 3.2 gm/dL (3.4-4.8); Albumin/Globulin Ratio 1.1 (1.2-2.2); Alkaline Phosphatase 164 U/L (46-116); Anion Gap 13 (7-16); Aspartate Amino Transferase 22 U/L (0-34); BUN/Creatinine Ratio 29 Ratio (12-20); Bilirubin,Total 0.4 mg/dL (0.3-1.2); Blood Urea Nitrogen 82 mg/dL (9-23); Calcium 8.7 mg/dL (8.3-10.6); Calcium (Corrected) 9.3 mg/dL (8.5-10.1); Carbon Dioxide 18.5 mMol/L (20.0-31.0); Chloride 110 mMol/L (98-107); Creatinine (Component) 2.8 mg/dL (0.6-1.3); Estimated Creatinine Clearance 11.9 mL/min (>60); Glucose 162 mg/dL (74-106); Magnesium 2.2 mg/dL (1.6-2.6); Osmolality,Calculated 309 (275-295); Phosphorous 3.7 mg/dL (2.4-5.1); Potassium 4.4 mMol/L (3.4-5.1); Sodium 141 mMol/L (136-145); Total Protein 6.2 gm/dL (5.7-8.2); eGFR 16 See Note
[2024-08-07] MEDS: INSULIN LISPRO (AdmeLOG) 1 UNIT/0.01 ML UNIT SC ×2 (07:41→12:18)
[2024-08-07] MEDS: INSULIN LISPRO (AdmeLOG) 1 UNIT/0.01 ML UNIT 2 UNIT SC ×2 (07:41→12:17)
--- NOTE | 2024-08-07 07:42 | ESPR_ITS ---
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 Eyes open, symmetrical, & clear CARDIO: No chest pain on palpation. Heart RRR, no obvious murmurs PULM: On high flow oxygen, crackles bilaterally, rhonchi. GI: Abdomen soft, nondistended, mildly tender epigastric region on palpation. BSx4 URO/MANAGER ASSET:: No further abnormalities noted. Dejesus catheter in situ SKIN/MSK/EXT: No wounds/rashes/edema/amputations, no pain on palpation. Pedal pulses present B/L Objective Labs 08/07/24 04:49 08/07/24 04:49 Labs: Laboratory Results - last 24 hr 08/06/24 08/07/24 10:21 04:49 WBC 21.7 H RBC 3.84 L Hgb 12.0 Hct 34.9 L MCV 91 MCH 31.3 MCHC 34.4 RDW Std Deviation 50.8 H Plt Count 240 Neut % (Auto) 93 H Lymph % (Auto) 3 L [place] % (Auto) 4 Eos % (Auto) 0 Baso % (Auto) 0 Neut # (Auto) 20.2 H Lymph # (Auto) 0.6 L [place] # (Auto) 0.8 Eos # (Auto) 0.0 Baso # (Auto) 0.0 Immature Gran # (Auto) 0.13 H Absolute Nucleated RBC 0.00 Immature Gran % 1 H Nucleated RBC % 0 Sodium 141 Potassium 4.4 D Chloride 110 H Carbon Dioxide 18.5 L Anion Gap 13 BUN 82 H Creatinine 2.8 H Estim Creat Clear Calc 11.9 L eGFR 16 L BUN/Creatinine Ratio 29 H Glucose 162 H Calculated Osmolality 309 H Lactic Acid 2.0 Calcium 8.7 Corrected Calcium 9.3 Phosphorus 3.7 Magnesium 2.2 Total Bilirubin 0.4 AST 22 ALT 18 Alkaline Phosphatase 164 H Total Protein 6.2 Albumin 3.2 L D Globulin 3.0 Albumin/Globulin Ratio 1.1 L Procalcitonin 1.93 H ABG Interpretation ABG results: 08/02/24 08/03/24 08/03/24 19:25 06:18 10:50 ABG pH 7.25 L 7.32 L ABG pCO2 40 28 L D ABG pO2 26 L* 78 L D ABG HCO3 18 L 14 L ABG O2 Saturation 34 L 96 ABG Base Excess -9 L -10 L VBG pH 7.29 L VBG pCO2 37 VBG pO2 37 VBG Base Excess -8 L 08/03/24 08/03/24 08/04/24 14:57 18:57 04:22 ABG pH 7.40 ABG pCO2 27 L ABG pO2 74 L ABG HCO3 17 L ABG O2 Saturation 96 ABG Base Excess -7 L VBG pH 7.32 L 7.34 VBG pCO2 33 L 30 L VBG pO2 56 60 H VBG Base Excess -8 L -9 L 08/06/24 04:44 ABG pH 7.28 L D ABG pCO2 37 D ABG pO2 49 L* D ABG HCO3 17 L ABG O2 Saturation 80 L ABG Base Excess -9 L VBG pH VBG pCO2 VBG pO2 VBG Base Excess Quality Measures Quality Measures none Advance care planning discussed with:: patient and other (family) Assessment & Plan Assessment Current Active Medications: Generic Name Dose Route Start Last Admin Trade Name Freq PRN Reason Stop Dose Admin Acetaminophen 650 mg 08/02/24 17:40 Acetaminophen 325 Mg Tablet PO 09/01/24 17:39 Q6H PRN Fever >100.5 Acetaminophen 650 mg 08/02/24 17:40 Acetaminophen 325 Mg Tablet PO 09/01/24 17:39 Q6H PRN PAIN SCALE 1-3 (mild Albuterol/Ipratropium 3 ml 08/04/24 08:30 08/07/24 06:32 Albuterol/Ipratropium (Duoneb) Rt Nadine 3 Ml Nebu INH 09/03/24 08:29 3 ml Q4HRRT JUAN LUIS Administration Aspirin 81 mg 08/03/24 09:00 08/06/24 08:14 Aspirin Ec 81 Mg Tabec PO 09/02/24 08:59 81 mg QDAY JUAN LUIS Administration Bumetanide 1 mg 08/05/24 06:00 08/07/24 06:01 Bumetanide Inj 0.25 Mg/Ml Vial 4 Ml IVP 09/04/24 05:59 1 mg BIDD JUAN LUIS Administration Dextrose 25 ml 08/02/24 18:03 Dextrose 50%-Water Inj 50 Ml Syringe IV 09/01/24 18:02 Q15MIN PRN BG 50-70 responsive npo pt Dextrose 50 ml 08/02/24 18:03 Dextrose 50%-Water Inj 50 Ml Syringe IV 09/01/24 18:02 Q15MIN PRN BG <50 OR BG <70 & pt unresponsive Docusate Sodium 100 mg 08/03/24 09:00 08/06/24 08:15 Docusate Sod 100 Mg Capsule PO 09/02/24 08:59 Not Given QDAY JUAN LUIS Protocol Glucagon 1 mg 08/03/24 20:29 Glucagon Inj 1 Mg Vial IM Q15MIN PRN BG <70, and no IV access Heparin Sodium (Porcine) 5,000 unit 08/03/24 21:00 08/06/24 21:23 Heparin Sod Inj 5000 Unit/Ml Vial SC 08/17/24 20:59 5,000 unit Q12HR JUAN LUIS Administration Norepinephrine/Dextrose 8 mg in 250 mls @ 4.805 mls/hr 08/02/24 22:09 08/07/24 07:00 Levophed In D5w 8mg/250ml IV 09/01/24 22:08 0.13 mcg/kg/min .Q24H PRN 12.494 mls/hr PER PROTOCOL Titration Protocol 0.05 MCG/KG/MIN Potassium Chloride 10 meq in 100 mls @ 100 mls/hr 08/03/24 10:03 Kcl Ivpb IV 09/02/24 10:02 .Q1H PRN IF POTASSIUM LESS THAN 3.3 Magnesium Sulfate 2 gm in 50 mls @ 25 mls/hr 08/03/24 10:03 Magnesium Sulfate Ivpb IV 09/02/24 10:02 .Q2H PRN PER DKA PROTOCOL Potassium Chloride 10 meq in 100 mls @ 50 mls/hr 08/03/24 10:03 Kcl Ivpb IV 09/02/24 10:02 PRN PRN K LEVEL 3.3 to 5.3 & BG > 200 Potassium Phosphate 15 mmol in 250 mls @ 62.5 mls/hr 08/03/24 10:03 Pot Phos 15 Mmol In Ns 250 Ml IV 09/02/24 10:02 PRN PRN Phosphate <= 1mg/dL Sodium Phosphate 15 mmol/ 255 mls @ 62.5 mls/hr 08/03/24 10:03 Sodium Chloride IV 09/02/24 10:02 .Q4H5M PRN Phosphate <= 1mg/dL and K> than 5.3 Dobutamine HCl/Dextrose 500 mg in 250 mls @ 3.066 mls/hr 08/04/24 10:51 08/07/24 06:00 Dobutrex/D5w Ivpb IV 09/02/24 09:32 2 mcg/kg/min .Q24H PRN 3.066 mls/hr PER PROTOCOL Titration Protocol 2 MCG/KG/MIN Insulin Glargine 5 unit 08/03/24 21:00 08/06/24 21:23 Insulin Glargine (Lantus) 5 Unit/0.05 Ml (Per 5 Units) SC 09/02/24 20:59 5 unit HS JUAN LUIS Administration Insulin Human Lispro 0 unit 08/05/24 07:30 08/06/24 17:46 Insulin Lispro (Admelog) 1 Unit/0.01 Ml Unit SC 09/04/24 07:29 2 unit AC JUAN LUIS Administration Protocol Insulin Human Lispro 2 unit 08/05/24 17:30 08/06/24 17:47 Insulin Lispro (Admelog) 1 Unit/0.01 Ml Unit SC 09/04/24 17:29 2 unit TIDWM JUAN LUIS Administration Linezolid 600 mg 08/06/24 09:00 08/06/24 21:23 Linezolid 600 Mg Tablet PO 08/13/24 08:59 600 mg BID JUAN LUIS Administration Mupirocin 0 gm 08/05/24 09:00 08/07/24 06:02 Mupirocin Oint 2% 15 Gm Tube TOP 08/12/24 08:59 1 applicatio TID JUAN LUIS Administration Nicotine 14 mg 08/03/24 09:00 08/06/24 08:15 Nicotine Patch 14 Mg/24 Hr Patch.Td24 TOP 09/02/24 08:59 14 mg QDAY JUAN LUIS Administration Ondansetron HCl 4 mg 08/02/24 17:40 Ondansetron Inj 2 Mg/Ml Inj 2 Ml IV 09/01/24 17:39 Q6H PRN NAUSEA OR VOMITING Protocol Oseltamivir Phosphate 30 mg 08/03/24 09:00 08/06/24 08:14 Oseltamivir 30 Mg Capsule PO 08/09/24 09:01 30 mg QDAY JUAN LUIS Administration Pantoprazole Sodium 40 mg 08/03/24 17:00 08/06/24 08:14 Pantoprazole Inj 40 Mg Vial IV 09/02/24 16:59 40 mg QDAY JUAN LUIS Administration Polyethylene Glycol 17 gm 08/04/24 21:00 08/05/24 08:38 Polyethylene Glycol 17 Gm Packet PO 09/03/24 20:59 17 gm QDAY JUAN LUIS Administration Sodium Bicarbonate 50 ml 08/03/24 10:03 Sodium Bicarb Inj 8.4% Syr 50 Ml Syringe IV 09/02/24 10:02 PRN PRN For ph <= to 7.0 Sodium Chloride 3 ml 08/04/24 08:32 08/05/24 16:33 Sodium Chloride Rt Nadine 0.9% 3 Ml Nebu INH 09/03/24 08:31 3 ml PRN PRN Administration SOLN Plan Summary: The patient is an 79-year-old female with a past medical history of hypertension, hyperlipidemia, hypothyroidism and HFrEF being followed by line service technician Dr. Vasquez who presented to the ED with shortness of breath. Neuro Awake, alert and oriented No active conditions Cardiovascular #History of HFrEF #Cardiogenic shock #Hypotension Initial admitting labs showed a BNP of >3280 with crackles bilaterally. The patient has a history of HFrEF and has been on Entresto. Blood pressure on admission consistently soft, patient IV fluids could not be given based on concern for fluid overload. Patient was started on IV 2 mg Admitted to ICU for pressor support. Bedside ultrasound done, IVC noncompressible 08/05/2024: Patient received 2 mg of IV Bumex yesterday, total urine output overnight was about -532. Patient still has shortness of breath, chest x-ray done this morning did not show any significant improvement. Blood pressure dropped today with MAP under 65, Levophed restarted, patient is yet to make urine today well possibly consider restarting dobutamine. An additional dose of Bumex was also given. Echocardiogram was done which showed ejection fraction of 35 to 40%. 08/06/2024: Total urine output yesterday, about -400 cc. She had received an additional dose of Bumex yesterday. She had 3 bowel movements and bowel regimen was held. Dobutamine was restarted to optimize inotropic effect and cardiac output due to the heart failure with reduced ejection fraction. 08/07/2024: continued support on dobutamine and NorEpi Plan: -Continue Bumex 1mg twice daily -Continue Levophed, monitor blood pressure -Continue dobutamine for ow to optimize cardiac output -Fluid restriction 1200 cc #Elevated troponin levels On admission, troponins elevated. Now downtrending. Possible type II demand ischemia Resp #Acute hypoxic respiratory failure #Influenza #Bilateral pneumonia The patient presented with shortness of breath. In the ED, influenza test was done which was negative. Chest x-ray showed bilateral pneumonia. MRSA nares positive 08/06/2024- Chest x-ray was repeated this morning, slightly improved in the right lung. WBC uptrending, at 18.7 today, repeated lactate which was normal but elevation in procalcitonin. Added linezolid to ceftriaxone to cover for MRSA. 08/07/2024: WBC increasing to 21.7, continues to be afebrile Will continue Tamiflu. Plan: -On linezolid, ceftriaxone, cefepime -Continue Tamiflu to complete 10-day course -Mupirocin -BIPAP HS GI #History of gastritis The patient probably has a history of gastritis and complains of some tenderness to epigastric region and reflux occasionally. Plan: -IV Protonix Renal #Acute kidney injury #Prerenal versus cardiorenal BUN and creatinine elevated on admission. Today, creatinine is at 2.2. Although the patient has had decreased p.o. intake, this could also possibly be cardiorenal. Creatinine still at 2.1 08/06/2024: Creatinine at 2.6 today, Urine output in negtaive balance yesterday Plan: -Continue IV Bumex -Renally dose medications -Avoid nephrotoxic meds #Anion gap metabolic acidosis #Lactic acidosis-resolved #DKA versus starvation ketosis, resolved On admission, lactic acid was elevated at 3.0. Initial glucose not significantly elevated. pH this morning still 7.32 with bicarb of 14. Lactic acidosis resolved Endo #History of type II DM The patient has a history of type II DM and is on Farxiga and glimepiride. Blood glucose on admission, 254 BHB was checked which was 2.1, patient's had DKA protocol initiated. A1c-6.8. Anion gap closed Blood glucose in the morning normal but during the day elevated. Will add prandial control Plan: -SC Lantus 5 units -Insulin lispro 2 units 3 times daily with meals -ISS -Hypoglycemic protocols in place Infectious #Influenza A #Bilateral pneumonia On admission, bedside influenza A test was positive. Chest x-ray showed bilateral pneumonia. Patient was started on IV antibiotics-ceftriaxone and azithromycin as well as Tamiflu. Plan: -Continue ceftriaxone -Continue Tamiflu -Pending cultures Health maintenance: Dispo: ICU for acute hypoxic respiratory failure and cardiogenic shock, requiring pressor support. Diet: Carb consistent low, dysphagia-mechanical altered GI: Pantoprazole DVT: SC heparin Dejesus: None Lines: Peripheral Med Rec: Pending, f/u PT: Not ordered Code: DNR/DNI Case was discussed with attending physician, Dr Annabel Durant MD PGY-4 Attending Provider Attestation/Addendum Patient seen and examined with the above resident, Juan A Durant DO. I agree with the findings, assessment, and plan of care as documented. Patient with slow improvement. Weaned to oxymask today. Maintain on dobutamine and levophed for adequate perfusion. UOP stable with about 70 ml/hr. Cr did rise and likely reflection of hypoperfusion with holding inotropic support. Lactic acid also elevated this AM. Recheck in afternoon. Maintain MAP >65 with combination therapy. Bedside USG shows collapse of the IVC with spontaneous respiration. Will return gentle fluids today as componenet of overdiuresis. Patient with normal mentation and tolerating meals well. Bowel regimen working. Patient on empiric antibiotics, WBC still rising so we did add anti-pseudomonal coverage with cefepime as well. MRSA nares positive- remains on linezolid now. HR back in NSR, amiodarone stopped without recurrence of atrial fibrillation. Complete 10 day course of tamiflu now. Continue to provide critical care services recovery from cardiogenic shock and influenza A pneumonia, possible superimposed bacterial pneumonia as well. Patient remains at significant risk for morbidity and mortality warranting close monitoring in the ICU. Total critical care time: I personally spent 35 minutes for reviw of physiologic parameters, directing plan of care, and counseling patient/ family at bedside. This is exclusive of time spent teaching housestaff or performing any separate billable procedures.
[2024-08-07] MEDS: ASPIRIN EC 81 MG TABEC PO (08:43)
[2024-08-07] MEDS: NICOTINE PATCH 14 MG/24 HR PATCH.TD24 TOP (08:43)
[2024-08-07] MEDS: PANTOPRAZOLE INJ 40 MG VIAL IV (08:43)
[2024-08-07] MEDS: LINEZOLID 600 MG TABLET PO ×2 (08:43→20:11)
[2024-08-07] MEDS: OSELTAMIVIR 30 MG CAPSULE PO (08:43)
[2024-08-07] MEDS: HEPARIN SOD INJ 5000 UNIT/ML VIAL SC ×2 (08:45→20:10)
[2024-08-07] MEDS: RINGERS LACTATED 1000 ML 1,000 ML 50 ML IV (09:12)
[2024-08-07] MEDS: CEFEPIME INJ 1 GM in SODIUM CHLORIDE 0.9% (Popper) 50 ML IV ×2 (09:12→20:10)
[2024-08-07 10:09] LABS: Lactate (Lactic Acid) 2.8 mMol/L (0.4-2.0)
[2024-08-07 13:06] LABS: Reflex Lactate? Y
[2024-08-07 14:18] LABS: Lactic Acid, 3 HR 2.6 mMol/L (0.4-2.0)
--- NOTE | 2024-08-07 15:46 | PC.SS ---
Update: Patient on oxymask. Patient receiving pressor support. P.O. feeds. Patient is afrebile.
[2024-08-07] MEDS: Norepinephrine/D5W 8mg/250ml 8 MG/250 ML BAG 16.338 MG IV (18:06)
[2024-08-07 18:42] LABS: Lactate (Lactic Acid) 2.1 mMol/L (0.4-2.0)
[2024-08-07 21:37] LABS: Reflex Lactate? Y
[2024-08-07 22:11] LABS: Lactic Acid, 3 HR 2.3 mMol/L (0.4-2.0)
[2024-08-08] VITALS (146 sets, daily range): BP systolic 55–104; BP diastolic 30–65; PULSE 69–107; RESP 6–41; TEMP 35.9–37; O2SAT 87–100
[2024-08-08] MEDS: ALBUTEROL/IPRATROPIUM (Duoneb) RT SOL 3 ML NEBU INH ×4 (02:22→14:10)
[2024-08-08 04:46] LABS: Base Excess -8 (-3-3); HCO3 17 mEq/L (20-26); Inspired Oxygen, FIO2 45 %; O2 Saturation 100 % (91-98); PCO2 34 mmHg (32.0-48.0); PO2 156 mmHg (83-108); pH, Arterial 7.31 (7.35-7.45)
[2024-08-08 04:51] LABS: Allen Test Performed/OK; Puncture Site Left Radial
--- NOTE | 2024-08-08 05:00 | XR_ITS ---
Examination: AP chest single view Technique one AP portable semiupright chest single view Exam date and time: August 08, 2024 at 0223 hrs. Comparison July 30, 2024 Indications: Hypoxia today. Findings: Moderate heart failure Mild to moderate enlargement cardiac contour Prominent vascular congestion with perihilar edema Consider superimposed bilateral pneumonia Impression: [id number] heart failure Consider superimposed bilateral pneumonia
[2024-08-08 05:29] LABS: Basophils % (Auto) 0 % (0-2.5); Eosinophils % (Auto) 0 % (0-10); Hematocrit 34.7 % (36.0-46.0); Hemoglobin 11.9 g/dL (12.0-16.0); Immature Granulocytes % (Auto) 1 % (0-0); Immature Granulocytes Auto 0.16 Thou/mm3 (0.00-0.00); Lymphocytes # (Auto) 0.8 Thou/mm3 (1.0-4.8); Lymphocytes % (Auto) 4 % (10-50); Mean Corpuscular HGB Conc 34.3 g/dl (31.0-37.0); Mean Corpuscular Hemoglobin 31.2 pg (25.0-35.0); Mean Corpuscular Volume 91 fL (80-100); Monocytes # (Auto) 0.7 Thou/mm3 (0.0-0.8); Monocytes % (Auto) 4 % (0-12); Neutrophils # (Auto) 17.3 Thou/mm3 (1.8-7.7); Neutrophils % (Auto) 91 % (37-80); Nucleated Red Blood Cell % 0 /100 WBC (0); Platelet Count 231 Thou/mm3 (140-440); RDW Standard Deviation 52.5 fL (36.4-46.3); Red Blood Count 3.81 Miln/mm3 (4.00-5.20)
[2024-08-08] MEDS: RINGERS LACTATED 1000 ML 1,000 ML 50 ML IV (05:30)
[2024-08-08] MEDS: DOBUTamine/D5w 500 MG IVPB 500 MG/250 ML BAG IV (05:30)
[2024-08-08] MEDS: MUPIROCIN OINT 2% 15 GM TUBE TOP (05:31)
[2024-08-08 06:46] LABS: Alanine Aminotransferase 17 U/L (10-49); Albumin, Serum 3.2 gm/dL (3.4-4.8); Albumin/Globulin Ratio 1.1 (1.2-2.2); Alkaline Phosphatase 142 U/L (46-116); Anion Gap 15 (7-16); Aspartate Amino Transferase 13 U/L (0-34); BUN/Creatinine Ratio 28 Ratio (12-20); Bilirubin,Total 0.4 mg/dL (0.3-1.2); Blood Urea Nitrogen 85 mg/dL (9-23); Calcium 8.8 mg/dL (8.3-10.6); Calcium (Corrected) 9.4 mg/dL (8.5-10.1); Carbon Dioxide 15.9 mMol/L (20.0-31.0); Chloride 111 mMol/L (98-107); Estimated Creatinine Clearance 11.1 mL/min (>60); Glucose 178 mg/dL (74-106); Magnesium 2.4 mg/dL (1.6-2.6); Osmolality,Calculated 312 (275-295); Phosphorous 5.6 mg/dL (2.4-5.1); Potassium 4.8 mMol/L (3.4-5.1); Sodium 142 mMol/L (136-145); Total Protein 6.2 gm/dL (5.7-8.2); eGFR 15 See Note
[2024-08-08] MEDS: LINEZOLID 600 MG TABLET PO (09:39)
[2024-08-08] MEDS: NICOTINE PATCH 14 MG/24 HR PATCH.TD24 TOP (09:39)
[2024-08-08] MEDS: PANTOPRAZOLE INJ 40 MG VIAL IV (09:39)
[2024-08-08] MEDS: ASPIRIN EC 81 MG TABEC PO (09:39)
[2024-08-08] MEDS: DOCUSATE SOD 100 MG CAPSULE PO (09:39)
[2024-08-08] MEDS: OSELTAMIVIR 30 MG CAPSULE PO (09:39)
[2024-08-08] MEDS: CEFEPIME INJ 1 GM in SODIUM CHLORIDE 0.9% (Popper) 50 ML IV (09:39)
[2024-08-08] MEDS: HEPARIN SOD INJ 5000 UNIT/ML VIAL SC (09:40)
[2024-08-08] MEDS: INSULIN LISPRO (AdmeLOG) 1 UNIT/0.01 ML UNIT 2 UNIT SC ×2 (09:41→11:58)
[2024-08-08] MEDS: INSULIN LISPRO (AdmeLOG) 1 UNIT/0.01 ML UNIT SC ×2 (09:41→11:58)
[2024-08-08 09:51] LABS: Lactate (Lactic Acid) 2.1 mMol/L (0.4-2.0)
[2024-08-08] MEDS: Norepinephrine/D5W 8mg/250ml 8 MG/250 ML BAG 20.182 MG IV (10:36)
[2024-08-08 11:10] LABS: Reflex Lactate? N
[2024-08-08] MEDS: AMIODARONE 150 MG IVPB 150 MG/100 ML BAG 600 MG IV (12:49)
[2024-08-08] MEDS: AMIODARONE 360 MG IVPB 360 MG/200 ML BAG 33.333 MG IV (13:04)
[2024-08-08] MEDS: Magnesium Sulfate 4 GM Ivpb 4 GM/50 ML BAG IV (14:13)
--- NOTE | 2024-08-08 14:25 | PC.NURSE ---
Pt in ventricular tachycardia at 1406. HR in the 140's and BP MAP of 61. MD Roberts made aware, dobutamine drip stopped and 4gm Magnesium Sulfate IV ordered.
[2024-08-08] MEDS: MORPHINE SULF INJ 10 MG/ML VIAL 3 MG IVP (15:32)
[2024-08-08] MEDS: SCOPOLAMINE 1 MG TDSY TOP (15:32)
[2024-08-08] MEDS: LORazepam 2 MG/ML VIAL 1 MG IVP ×3 (16:24→19:47)
[2024-08-08] MEDS: MORPHINE SULF INJ 10 MG/ML VIAL 4 MG IVP ×4 (16:43→19:47)
--- NOTE | 2024-08-08 17:54 | PC.SS ---
Patient has been transitioned to comfort care.
--- NOTE | 2024-08-08 18:03 | ESPR_ITS ---
<Statement entered by Seda Lee MD - 08/08/24 18:36> I discussed with and supervised my co-resident involved in the care of this patient. I agree with the assessment and plan as documented above. Seda Lee,PGY-3 Disclaimer: Despite multiple revisions, due to the dictation software being used, the document below may not be free of grammatical errors including phonetic/typographic errors. However, this does not deter from our commitment to providing health care in the patient's best interest in mind Documentation for date of: 08/08/24 Subjective Subjective Interval history: Patient seen and examined at bedside. Overnight, had frequent runs of PVCs, otherwise unremarkable. Patient continues to be in respiratory distress even though she is on BiPAP at night, ABG this morning has a pH of 7.31 with CO2 34 and bicarb of 17. Minimal anion gap acidosis likely due to combination of lactic acidosis as well as uremia. Patient put on BiPAP during the day as she was in respiratory distress to help with work of breathing. Continues to require large doses of pressors. Had episode of nonsustained V. tach, amiodarone was started and magnesium repleted. Goals of care discussion to be had with family. Exam Vital Signs Temp Pulse Resp BP Pulse Ox O2 Del Method O2 Flow Rate 98.6 F 89 21 H 55/38 L 95 Mechanical Ventilation 7 08/08/24 16:00 08/08/24 17:15 08/08/24 17:15 08/08/24 17:15 08/08/24 17:15 08/08/24 16:00 08/07/24 20:15 FiO2 50 08/08/24 16:00 Narrative Exam GENERAL: AAOX3, respiratory distress NEURO: PAINTER SIGN MAINTENANCE grossly intact, moves extremities x4 HEENT: Dry mucosa. Eyes open, symmetrical, & clear CARDIO: No chest pain on palpation. Heart RRR, no obvious murmurs PULM: Crackles bilaterally, tachypneic with accessory muscles use and respiration GI: Abdomen soft, nondistended, mildly tender epigastrium on palpation. BSx4 URO/AMORTIZATION SCHEDULE CLERK:: No further abnormalities noted. Dejesus catheter in situ SKIN/MSK/EXT: No wounds/rashes/edema/amputations, no pain on palpation. Pedal pulses present B/L Objective Labs 08/08/24 05:00 08/08/24 05:00 Labs: Laboratory Results - last 24 hr 08/07/24 08/07/24 08/08/24 18:18 22:03 04:30 WBC RBC Hgb Hct MCV MCH MCHC RDW Std Deviation Plt Count Neut % (Auto) Lymph % (Auto) [place] % (Auto) Eos % (Auto) Baso % (Auto) Neut # (Auto) Lymph # (Auto) [place] # (Auto) Eos # (Auto) Baso # (Auto) Immature Gran # (Auto) Absolute Nucleated RBC Immature Gran % Nucleated RBC % Puncture Site Left Radial ABG pH 7.31 L ABG pCO2 34 ABG pO2 156 H D ABG HCO3 17 L ABG O2 Saturation 100 H ABG Base Excess -8 L FiO2 45 Sodium Potassium Chloride Carbon Dioxide Anion Gap BUN Creatinine Estim Creat Clear Calc eGFR BUN/Creatinine Ratio Glucose Calculated Osmolality Lactic Acid 2.1 H 2.3 H Calcium Corrected Calcium Phosphorus Magnesium Total Bilirubin AST ALT Alkaline Phosphatase Total Protein Albumin Globulin Albumin/Globulin Ratio 08/08/24 08/08/24 05:00 09:39 WBC 19.0 H RBC 3.81 L Hgb 11.9 L Hct 34.7 L MCV 91 MCH 31.2 MCHC 34.3 RDW Std Deviation 52.5 H Plt Count 231 Neut % (Auto) 91 H Lymph % (Auto) 4 L [place] % (Auto) 4 Eos % (Auto) 0 Baso % (Auto) 0 Neut # (Auto) 17.3 H Lymph # (Auto) 0.8 L [place] # (Auto) 0.7 Eos # (Auto) 0.0 Baso # (Auto) 0.0 Immature Gran # (Auto) 0.16 H Absolute Nucleated RBC 0.00 Immature Gran % 1 H Nucleated RBC % 0 Puncture Site ABG pH ABG pCO2 ABG pO2 ABG HCO3 ABG O2 Saturation ABG Base Excess FiO2 Sodium 142 Potassium 4.8 Chloride 111 H Carbon Dioxide 15.9 L Anion Gap 15 BUN 85 H Creatinine 3.0 H Estim Creat Clear Calc 11.1 L eGFR 15 L BUN/Creatinine Ratio 28 H Glucose 178 H Calculated Osmolality 312 H Lactic Acid 2.1 H Calcium 8.8 Corrected Calcium 9.4 Phosphorus 5.6 H Magnesium 2.4 Total Bilirubin 0.4 AST 13 ALT 17 Alkaline Phosphatase 142 H D Total Protein 6.2 Albumin 3.2 L Globulin 3.0 Albumin/Globulin Ratio 1.1 L ABG Interpretation ABG results: 08/02/24 08/03/24 08/03/24 19:25 06:18 10:50 ABG pH 7.25 L 7.32 L ABG pCO2 40 28 L D ABG pO2 26 L* 78 L D ABG HCO3 18 L 14 L ABG O2 Saturation 34 L 96 ABG Base Excess -9 L -10 L VBG pH 7.29 L VBG pCO2 37 VBG pO2 37 VBG Base Excess -8 L 08/03/24 08/03/24 08/04/24 14:57 18:57 04:22 ABG pH 7.40 ABG pCO2 27 L ABG pO2 74 L ABG HCO3 17 L ABG O2 Saturation 96 ABG Base Excess -7 L VBG pH 7.32 L 7.34 VBG pCO2 33 L 30 L VBG pO2 56 60 H VBG Base Excess -8 L -9 L 08/06/24 08/08/24 04:44 04:30 ABG pH 7.28 L D 7.31 L ABG pCO2 37 D 34 ABG pO2 49 L* D 156 H D ABG HCO3 17 L 17 L ABG O2 Saturation 80 L 100 H ABG Base Excess -9 L -8 L VBG pH VBG pCO2 VBG pO2 VBG Base Excess Quality Measures Quality Measures none Advance care planning discussed with:: other Assessment & Plan Assessment Current Active Medications: Generic Name Dose Route Start Last Admin Trade Name Freq PRN Reason Stop Dose Admin Glycopyrrolate 0.2 mg 08/08/24 16:20 Glycopyrrolate Inj 0.2 Mg/Ml Vial IV 09/07/24 16:19 QID PRN As needed for secretions Lorazepam 1 mg 08/08/24 15:55 08/08/24 16:24 Lorazepam 2 Mg/Ml Vial IVP 08/13/24 15:54 1 mg Q30M PRN Administration ANXIETY Morphine Sulfate 4 mg 08/08/24 15:17 08/08/24 17:15 Morphine Sulf Inj 10 Mg/Ml Vial IVP 08/13/24 15:16 4 mg Q15M PRN Administration Pain or respiratory distress Scopolamine 1 mg 08/08/24 15:30 08/08/24 15:32 Scopolamine 1 Mg Tdsy TOP 09/07/24 15:29 1 mg Q3D JUAN LUIS Administration Plan Summary: The patient is an 79-year-old female with a past medical history of hypertension, hyperlipidemia, hypothyroidism and HFrEF who presented to the ED on 08/02/2024 with shortness of breath. She also endorsed orthopnea and PND, on initial examination was found to have bilateral crackles along with wheezing. Viral testing done in the ED was positive for influenza and chest x-ray showed pneumonia. The patient was admitted for acute hypoxic respiratory assessments influenza and community-acquired pneumonia. While in the ED, patient was noted to have worsening shortness of breath and was hypotensive with MAP less than 60, subsequently admitted to the ICU for pressor support. During the course of hospitalization, patient was noted to be consistently hypoxic, requiring BiPAP. As the patient is DNR, intubation was not an option. Levophed and dobutamine were on board to attempt to maximize cardiac output. Additionally, continued IV antibiotics and added Pseudomonas and MRSA coverage with cefepime and linezolid. The patient's continued to be hypotensive requiring larger doses of Levophed, causing infiltration into the peripheral IV lines. An extensive goals of care conversation was had with family at bedside who did not want any other extensive measures including central line and A-line and eventually transition of the patient to comfort care. All medications including pressors have been discontinued and patient is currently on comfort care with morphine, Ativan as needed and scopolamine as well as glycopyrrolate as needed. #History of HFrEF #Cardiogenic shock #Hypotension #Elevated troponin levels #Acute hypoxic respiratory failure #Influenza #Bilateral pneumonia #History of gastritis #Acute kidney injury versus ATN #Anion, tablet acidosis #History of type II DM Plan: -Transitioned to comfort care Case was discussed with Dr Lee PGY-3 and attending physician, Dr Armando Sidhu MD PGY-1 Disclaimer: This note was dictated by speech recognition. Minor errors in padded products inspector trimmer may be present due to voice recognition software.
--- NOTE | 2024-08-08 21:16 | PC.NURSE ---
pt family at bedside and took off blood pressure cuff-refusing to put back on. heart monitor still connected to pt
[2024-08-09] VITALS (73 sets, daily range): PULSE 56–88; RESP 8–19; TEMP 35.8; O2SAT 85–98
[2024-08-09] MEDS: MORPHINE SULF INJ 10 MG/ML VIAL 4 MG IVP ×2 (00:35→06:50)
--- NOTE | 2024-08-09 08:58 | PD.DPN ---
Documentation for date of: 08/09/24 Pronouncement Note Date and Time of Date of : 08/09/24 Time of : 07:06 PCOD Preliminary cause of : Cardiorespiratory arrest Contributing Factors (1) Influenza: (2) Congestive heart failure: Summary Additional details: I was called to see for asystole. On exam the patient was unresponsive, no spontaneous movement was observed, patient did not respond to verbal or noxious stimuli. Auscultated absent heart and breath sounds for more than 2 minutes. Peripheral pulses are absent. B/L Pupils are fixed, dilated, and corneal reflex was absent. Patient pronounced at 07:06am. Attending Dr. Roberts notified. Family was at bedside. Admitted on 08/02/2024 on 08/09/2024 07:06am CODE STATUS: DNR/DNI Causes of : 1.Cardiopulmonary arrest 2.Acute renal failure 3.Acute decompensated heart disease Additional Data Confirmation of : no pulse, no respirations, no heart sounds and pupils fixed and dilated Family: at bedside Attending/PCP notified?: Yes Attending physician: Clau Roberts MD Was code activated?: No Autopsy requested?: No legal instruments examiner notified?: Yes Organ bank notified?: No Advance directives: No
--- NOTE | 2024-08-09 15:05 | DES_ITS ---
Documentation for date of: 08/09/24 Summary Date and Time Date of admission: 08/02/24 22:03 Date of : 08/09/24 Time of : 07:06 Summary Details: The patient is an 79-year-old female with a past medical history of hypertension, hyperlipidemia, hypothyroidism and HFrEF who presented to the ED on 08/02/2024 with shortness of breath. She also endorsed orthopnea and PND, on initial examination was found to have bilateral crackles along with wheezing. Viral testing done in the ED was positive for influenza and chest x-ray showed pneumonia. The patient was admitted for acute hypoxic respiratory assessments influenza and community-acquired pneumonia. While in the ED, patient was noted to have worsening shortness of breath and was hypotensive with MAP less than 60, subsequently admitted to the ICU for pressor support. During the course of hospitalization, patient was noted to be consistently hypoxic, requiring BiPAP. As the patient is DNR, intubation was not an option. Levophed and dobutamine were on board to attempt to maximize cardiac output. Additionally, continued IV antibiotics and added Pseudomonas and MRSA coverage with cefepime and linezolid. The patient continued to be hypotensive requiring larger doses of Levophed, causing infiltration into the peripheral IV lines. An extensive goals of care conversation was had with family at bedside who did not want any other extensive measures including central line and A-line and eventually transitioned of the patient to comfort care. All medications including pressorswere discontinued and patient was transitioned to comfort care with morphine, Ativan as needed and scopolamine as well as glycopyrrolate as needed. On 08/09/2024, the patient comfortably , time of as pronounced by the physician- 07:06am Family was at bedside and consoled. #History of HFrEF #Cardiogenic shock #Hypotension #Elevated troponin levels #Acute hypoxic respiratory failure #Influenza #Bilateral pneumonia #History of gastritis #Acute kidney injury versus ATN #Anion, tablet acidosis #History of type II DM Refer to pronouncement note for any additional information. Case was discussed with attending physician, Dr Armando Sidhu MD PGY-1 Disclaimer: This note was dictated by speech recognition. Minor errors in acting teacher may be present due to voice recognition software. Additional Data Confirmation of as documented by pronouncing clinician: no pulse, no respirations, no heart sounds and pupils fixed and dilated Family: at bedside Attending/PCP notified?: Yes Attending physician: Clau Roberts MD Was code activated?: No Autopsy requested?: No hand cloth examiner notified?: Yes Organ bank notified?: No Advance directives: No Hospice patient?: No Visit Providers Provider Primary care physician: Court Tompkins MD Diagnosis Contributing Factors (1) Influenza: (2) Congestive heart failure: Discharge Plan Plan Patient Disposition: Disposition Comment: Stable Prescriptions/Referrals Referrals: Court Tompkins MD [Primary Care Provider] - Patient/Caregiver Discharge Instructions Print Language: Togolese Stand Alone Forms: Deloris Award Info., Patient Portal Info Letter Discharge Order Discharge Orders: Discharge (Routine); Ordered 08/09/24 Ordered By: Claudette Sidhu
== END 2024-08-09 07:06 | disposition expired | DRG 177 ==
LOC: SERX 16:41 → SERHOLD 17:59 → S2SX 08-03 06:20
PROVIDERS: Nurse Practitioner Family; Student in an Organized Health Care Education/Training Program; Admitting Provider Internal Medicine; Emergency Provider Emergency Medicine; PCP Family Medicine; Visit Provider Internal Medicine Critical Care Medicine
DX: J10.01 Influenza due to other identified influenza virus with the same other identified influenza virus pneumonia (principal); I21.A1 Myocardial infarction type 2; J15.29 Pneumonia due to other staphylococcus; I50.23 Acute on chronic systolic (congestive) heart failure; J96.01 Acute respiratory failure with hypoxia; N17.9 Acute kidney failure, unspecified; E87.20 Acidosis, unspecified; I47.20 Ventricular tachycardia, unspecified; F17.200 Nicotine dependence, unspecified, uncomplicated; K21.9 Gastro-esophageal reflux disease without esophagitis; E03.9 Hypothyroidism, unspecified; I48.91 Unspecified atrial fibrillation; R57.0 Cardiogenic shock; I95.9 Hypotension, unspecified; I11.0 Hypertensive heart disease with heart failure; E05.90 Thyrotoxicosis, unspecified without thyrotoxic crisis or storm; E11.51 Type 2 diabetes mellitus with diabetic peripheral angiopathy without gangrene; E86.0 Dehydration; Z66 Do not resuscitate; K29.70 Gastritis, unspecified, without bleeding; I44.0 Atrioventricular block, first degree; D64.89 Other specified anemias; E78.5 Hyperlipidemia, unspecified; Z51.5 Encounter for palliative care; I46.2 Cardiac arrest due to underlying cardiac condition
CPT/HCPCS: 36415; 36600; 71045; 71046; 80053; 80061; 80069; 81001; 82010; 82803; 83036; 83605; 83735; 83880; 84100; 84145; 84439; 84443; 84484; 85025; 87040; 87077; 87081; 87086; 87186; 87400; 87811; 93005; 93306; 94640; 94644; 94660; 94667; 96361; 96365; 96367; 96372; 96375; 99285; A9270; J0283; J0456; J0692; J0696; J1250; J1643; J1815; J2060; J2270; J2470; J2919; J3475; J3490; J7030; J7050; J7120